=== PATIENT | female | born 1935 | race African-American/Black ===

== ENCOUNTER 2018-06-27 14:07 | Inpatient (IN) | payer MEDICARE, MEDICAID ==
[~2018-06-27] VITALS: Ht 170.2 cm; Wt 101.2 kg
[2018-06-27 14:21] VITALS: BP 135/69
--- NOTE | 2018-06-27 14:27 | Emergency Room Report ---
History of Present Illness General Chief Complaint: Abnormal Labs Source: Patient Present Illness HPI This patient has a history of diabetes, hypertension, coronary artery disease, COPD. She states that she was in a half-way facility until about one month ago. She states that while she is in a half-way facility she felt safe and taking care of. She states that about a month ago she moved into her home. She states that she has not had any help from her family. She states she is very afraid and feels unsafe as she is unable to care for herself. She presents by EMS today for hypoglycemia. She states she was going to take her insulin and her blood sugar was 30. EMS report on their arrival her blood sugar was 30. She was given glucagon en route. She states that for the past week she has had a cough and congestion and a flare of her "bronchitis." She has had sputum production. She denies fever or chills. She denies nausea or vomiting. She states she's had some burning and pressure in the middle of her chest. She states that since the bronchitis has flared she has been using her home oxygen. She states she doesn't always have to use the oxygen. She also states that she feels unsafe at home and would like to return to the half-way facility. Allergies: Coded Allergies: No Known Allergies (Unverified , 06/27/18) Patient History Past Medical History: see triage record, DM, HTN, MS, CAD, COPD, GERD, dementia Social History: Denies: smoking, alcohol use, drug use Now: No Reviewed Nursing Documentation: PMH: Agreed; PSxH: Agreed Nursing Documentation-PM Past Medical History: No History, Except For Hx Diabetes: Yes Review of Systems All Other Systems: negative except mentioned in HPI Physical Exam Vital Signs Date Time Temp Pulse Resp B/P (MAP) Pulse Ox O2 Delivery O2 Flow Rate FiO2 06/27/18 14:04 97.3 92 16 125/53 99 Room Air Sp02 EP Interpretation: reviewed, normal General Appearance: no apparent distress, alert, GCS 15, non-toxic Head: normocephalic, atraumatic Eyes: bilateral eye normal inspection, bilateral eye PERRL ENT: hearing grossly normal, normal pharynx, no angioedema, normal voice Neck: full range of motion, supple/symm/no masses Respiratory: chest non-tender, no respiratory distress, no retraction, no accessory muscle use, speaking full sentences, wheezing, expiration Cardiovascular #1: regular rate, rhythm, no edema Gastrointestinal: normal bowel sounds, non tender, soft, non-distended, no guarding, no rebound Rectal: deferred Musculoskeletal: back normal, normal range of motion, non-tender, swelling - BLE edema Neurologic: alert, oriented x3, responsive, motor strength/tone normal, sensory intact, speech normal Psychiatric: judgement/insight normal, memory normal, mood/affect normal, no suicidal/homicidal ideation Skin: normal color, no rash, warm/dry, well hydrated Medical Decision Making Diagnostic Impression: Primary Impression: Hypoglycemia Additional Impressions: CHF exacerbation COPD exacerbation ER Course This patient presents with hypoglycemia. At home the patient's blood sugar was 30. Here in the emergency department she dropped to 67 after glucagon. Possibly this patient over took her insulin. The patient is 83 years old and living alone in managing her medications. She states she feels unsafe at her home and had been in a half-way facility and felt much safer there because she had assistance with her medications and activities of daily living. Patient also has wheezing on exam and findings on chest x-ray that appear consistent with CHF exacerbation. She has a known history of COPD. She was treated concurrently for COPD, pneumonia and CHF. The patient continued to have significant shortness of breath and after being given albuterol and Atrovent nebulizer treatments continued to feel short of breath. Therefore, I felt I should treat the patient for CHF and did give the patient nitro paste to her chest wall and Lasix IV. The patient will be admitted for further evaluation and treatment. Likely this patient will need placement in a half-way facility as she is unable to care for herself safely. Laboratory Tests Test 06/27/18 14:30 06/27/18 15:18 White Blood Count 10.3 K/UL (4.8-10.8) Red Blood Count 3.86 M/UL (4.20-5.40) L Hemoglobin 10.7 G/DL (12.0-16.0) L Hematocrit 35.6 % (37.0-47.0) L Mean Corpuscular Volume 92 FL (80-99) Mean Corpuscular Hemoglobin 27.6 PG (27.0-31.0) Mean Corpuscular Hemoglobin Concent 30.0 G/DL (32.0-36.0) L Red Cell Distribution Width 13.9 % (11.6-14.8) Platelet Count 197 K/UL (150-450) Mean Platelet Volume 8.4 FL (6.5-10.1) Neutrophils (%) (Auto) 80.0 % (45.0-75.0) H Lymphocytes (%) (Auto) 10.9 % (20.0-45.0) L Monocytes (%) (Auto) 5.7 % (1.0-10.0) Eosinophils (%) (Auto) 1.7 % (0.0-3.0) Basophils (%) (Auto) 1.7 % (0.0-2.0) Sodium Level 143 MMOL/L (136-145) Potassium Level 4.3 MMOL/L (3.5-5.1) Chloride Level 102 MMOL/L (98-107) Carbon Dioxide Level 35 MMOL/L (21-32) H Anion Gap 6 mmol/L (5-15) Blood Urea Nitrogen 33 mg/dL (7-18) H Creatinine 1.0 MG/DL (0.55-1.30) Estimate Glomerular Filtration Rate mL/min (>60) Glucose Level 67 MG/DL (74-106) L Lactic Acid Level 1.90 mmol/L (0.4-2.0) Calcium Level 9.2 MG/DL (8.5-10.1) Phosphorus Level 4.1 MG/DL (2.5-4.9) Magnesium Level 2.1 MG/DL (1.8-2.4) Total Bilirubin 0.3 MG/DL (0.2-1.0) Aspartate Amino Transferase (AST) 34 U/L (15-37) Alanine Aminotransferase (ALT) 42 U/L (12-78) Alkaline Phosphatase 114 U/L (46-116) Total Creatine Kinase 388 U/L (26-308) H Creatine Kinase MB 3.0 NG/ML (0.0-3.6) Creatine Kinase MB Relative Index 0.7 Troponin I 0.024 ng/mL (0.000-0.056) Total Protein 6.9 G/DL (6.4-8.2) Albumin 3.6 G/DL (3.4-5.0) Globulin 3.3 g/dL Albumin/Globulin Ratio 1.1 (1.0-2.7) Acetone Level Negative (NEGATIVE) Urine Color Pale yellow Urine Appearance Clear Urine pH 6 (4.5-8.0) Urine Specific [place] 1.010 (1.005-1.035) Urine Protein Negative (NEGATIVE) Urine Glucose (UA) Negative (NEGATIVE) Urine Ketones Negative (NEGATIVE) Urine Blood Negative (NEGATIVE) Urine Nitrite Negative (NEGATIVE) Urine Bilirubin Negative (NEGATIVE) Urine Urobilinogen Normal MG/DL (0.0-1.0) Urine Leukocyte Esterase Negative (NEGATIVE) EKG Diagnostic Results Rate: normal Rhythm: NSR ST Segments: no acute changes Rhythm Strip Diag. Results EP Interpretation: yes Rate: 70's Rhythm: NSR, no PVC's, no ectopy Chest X-Ray Diagnostic Results Chest X-Ray Diagnostic Results : Chest X-Ray Ordered: Yes # of Views/Limited/Complete: 1 View Indication: Shortness of Breath EP Interpretation: Yes Interpretation: other - Diffuse patchy opacities Impression: Other - See above Electronically Signed by: Eladia Ascencio DO Last Vital Signs Date Time Temp Pulse Resp B/P (MAP) Pulse Ox O2 Delivery O2 Flow Rate FiO2 06/27/18 14:04 97.3 92 16 125/53 99 Room Air Disposition: ADMITTED INPATIENT Condition: Serious Eladia Ascencio DO Jun 27, 2018 14:27
[2018-06-27] MEDS ORDERED: Ipratropium 0.02% Inh Soln 2.5ml UD HHN ONE (14:30)
[2018-06-27] MEDS ORDERED: Albuterol ud Inhalation HHN ONE (14:30)
[2018-06-27] MEDS ORDERED: cefTRIAXone 1 GM in NS 55 ML IVPB ONE (14:30)
--- NOTE | 2018-06-27 14:45 | NUR ---
ED Nurse Note: Patient brought in by ambulance from [facility] due to altered. Family found patient altered, AxOx2. EMS found her altered with blood sugar ~ 22 critically low. Glucagon and D10 given en route to ER. Per EMS, patient lives alone, and she had take to the hospital multiples time due to hypoglycemia. Patient awake, alert, oriented x 3. c/o chest tightness and SOB and maintaining high-kincaid position. Pulse oximetry reading on room air was 92%. Provided oxygen 2L via N/C. Per patient, patient has bronchitis. Patient brought a bottle of Novolog and placed in sealed bag. Provided juice and sandwiches. Placed patient on cardiac exercise specialist. Bed in lowest position.
--- NOTE | 2018-06-27 14:51 | NUR ---
ED Nurse Note: Patient's son (HARESH) [phone].
[2018-06-27 14:53] LABS: BASOPHILS % (AUTO) 1.7 % (0.0-2.0); EOSINOPHILS % (AUTO) 1.7 % (0.0-3.0); HEMATOCRIT 35.6 % (37.0-47.0); HEMOGLOBIN 10.7 G/DL (12.0-16.0); LYMPHOCYTES % (AUTO) 10.9 % (20.0-45.0); MEAN CORPUSCULAR VOLUME 92 FL (80-99); MONOCYTES % (AUTO) 5.7 % (1.0-10.0); PLATELET COUNT 197 K/UL (150-450); RED BLOOD COUNT 3.86 M/UL (4.20-5.40); RED CELL DISTRIBUTION WIDTH 13.9 % (11.6-14.8); WHITE BLOOD COUNT 10.3 K/UL (4.8-10.8)
[2018-06-27 15:04] LABS: ANION GAP 6 mmol/L (5-15); BLOOD UREA NITROGEN 33 mg/dL (7-18); CALCIUM 9.2 MG/DL (8.5-10.1); CARBON DIOXIDE 35 MMOL/L (21-32); CHLORIDE 102 MMOL/L (98-107); POTASSIUM 4.3 MMOL/L (3.5-5.1); SODIUM 143 MMOL/L (136-145)
--- NOTE | 2018-06-27 15:08 | Diagnostic Imaging Report ---
Indication: Dyspnea Comparison: None A single view chest radiograph was obtained. Findings: There is enlargement of the cardiac silhouette with pulmonary vascular redistribution and prominence, hazy vessel margins and the suggestion of interstitial edema consistent with CHF. Bones are osteopenic. IMPRESSION: Congestive heart failure
--- NOTE | 2018-06-27 15:10 | NUR ---
ED Nurse Note: Dr. Scott notified of blood sugar 69mg/dl and ordered to administer D50 at this time. Patient is receiving breathing treatment.
[2018-06-27 15:17] LABS: ALANINE AMINOTRANSFERASE 42 U/L (12-78); ALBUMIN 3.6 G/DL (3.4-5.0); ALBUMIN/GLOBULIN RATIO 1.1 (1.0-2.7); ALKALINE PHOSPHATASE 114 U/L (46-116); ASPARTATE AMINO TRANSFERASE 34 U/L (15-37); BILIRUBIN,TOTAL 0.3 MG/DL (0.2-1.0); CREATINE KINASE 388 U/L (26-308); PHOSPHORUS 4.1 MG/DL (2.5-4.9)
[2018-06-27 15:44] LABS: APPEARANCE,URINE CLEAR; BILIRUBIN, URINE NEGATIVE (NEGATIVE); COLOR,URINE PALE YELLOW; GLUCOSE, URINE (UA) NEGATIVE (NEGATIVE); KETONES,URINE NEGATIVE (NEGATIVE); LEUKOCYTE ESTERASE ,URINE NEGATIVE (NEGATIVE); NITRITE,URINE NEGATIVE (NEGATIVE); PH,URINE 6 (4.5-8.0); PROTEIN,URINE NEGATIVE (NEGATIVE); UROBILINOGEN,URINE NORMAL MG/DL (0.0-1.0)
[2018-06-27 15:45] VITALS: BP 131/46
[2018-06-27] MEDS ORDERED: Nitroglycerin 2% oint pkt TOPIC ONE (16:00)
--- NOTE | 2018-06-27 16:00 | NUR ---
ED Nurse Note: ERMD notified of rectal temp 94.7F, patient's complaints of SOB, pulse oximetry reading > 94% and decreasd RR to 17. Provided warm blankets.
--- NOTE | 2018-06-27 17:05 | NUR ---
ED Nurse Note: Patient refused BiPAP. Patient does not want to wear mask. Dr. Ascencio was at bedside and explained the benefit and risk of using BiPAP, but patient still does not want to use mask at this time. Bedside commode at bedside.
--- NOTE | 2018-06-27 17:09 | NUR ---
ED Nurse Note: PT REFUSED BIPAP, THEREFORE UPGRADE WAS CHANGED TO TELE INSTEAD OF SDU. REGISTRATION AND NURSING TELEVISION REPAIRMAN AWARE.
--- NOTE | 2018-06-27 17:16 | NUR ---
RESPIRATORY NOTE: Patient refused Bipap. was notified and aware. Will continue to monitor
[2018-06-27 17:30] VITALS: BP 127/58
--- NOTE | 2018-06-27 18:00 | NUR ---
ED Nurse Note: Inserted schaeffer cather 16g as ordered. Patient tolerated the procedure without difficutly.
[2018-06-27 18:29] VITALS: BP 148/65
--- NOTE | 2018-06-27 18:35 | NUR ---
ED Nurse Note: Patient c/o headache. ERMD notified and received order to administer Tylenol at this time.
--- NOTE | 2018-06-27 18:37 | NUR ---
ED Nurse Note: RN attempted to given report to Tel, nurse not available at this time.
[2018-06-27] MEDS ORDERED: NOVOLOG100 UNIT/4 SQ (18:38)
--- NOTE | 2018-06-27 18:44 | NUR ---
ED Nurse Note: Dropped off patient's Novolog to pharmacy. Receipt # [id number] in chart.
[2018-06-27] MEDS ORDERED: Miralax 17gm pkt ORAL PRN (18:56)
--- NOTE | 2018-06-27 19:08 | NUR ---
ED Nurse Note: HAND-OFF: Report given to DARWIN Summers. Patient resting in bed.
[2018-06-27 20:07] VITALS: BP 148/65
--- NOTE | 2018-06-27 20:10 | NUR ---
ER Nurse Note: Report given to DARWIN Atkinson for continuity of care. Pt a&ox4, VSS, no signs of acute distress, shortness of breath, s/s of hypoglycemia. Left with all belongings.
--- NOTE | 2018-06-27 20:30 | NUR ---
NURSE NOTES: Report received from Layne DIRECTOR OF RETENTION. Patient is transferred via gurney without any incident from ER to Telemetry unit. Patient is alert, oriented, with periods of forgetfulness, able to make needs known. Respiratory even and unlabored. Patient is tolerating 2L NC at 95%. Vital signs are as follows: BP: 146/85, RR: 20, O2: 95%, afebrile. IV site is asymptomatic, patent, and intact. Sutton catheter is in place and draining via gravity. Belongings list checked and signed. Skin assessment done and verified with Angelo RN, skin is intact. Bed is in lowest position with side rails up x2. Will continue to monitor.
[2018-06-27] MEDS: Heparin 5000 units/ml inj SUBQ SCH (21:06)
[2018-06-28] VITALS: BP 121/52
[2018-06-28] MEDS: Albuterol/Ipratropium 3ml neb HHN PRN (03:35)
[2018-06-28 04:00] VITALS: BP 107/47
--- NOTE | 2018-06-28 06:36 | NUR ---
NURSE NOTES: Notified troponin level of 0.084. Troponin AM is still pending.
[2018-06-28 06:41] LABS: EOSINOPHILS % (AUTO) 3.5 % (0.0-3.0); HEMATOCRIT 31.1 % (37.0-47.0); HEMOGLOBIN 9.3 G/DL (12.0-16.0); LYMPHOCYTES % (AUTO) 18.7 % (20.0-45.0); MEAN CORPUSCULAR VOLUME 92 FL (80-99); MONOCYTES % (AUTO) 8.3 % (1.0-10.0); NEUTROPHILS % (AUTO) 67.5 % (45.0-75.0); PLATELET COUNT 196 K/UL (150-450); RED CELL DISTRIBUTION WIDTH 14.1 % (11.6-14.8)
[2018-06-28 06:52] LABS: ALBUMIN 2.9 G/DL (3.4-5.0); ANION GAP 3 mmol/L (5-15); BLOOD UREA NITROGEN 34 mg/dL (7-18); CALCIUM 8.9 MG/DL (8.5-10.1); CARBON DIOXIDE 37 MMOL/L (21-32); CHLORIDE 101 MMOL/L (98-107); CREATININE 1.1 MG/DL (0.55-1.30); PHOSPHORUS 4.3 MG/DL (2.5-4.9); POTASSIUM 4.8 MMOL/L (3.5-5.1); SODIUM 141 MMOL/L (136-145)
--- NOTE | 2018-06-28 06:57 | NUR ---
NURSE NOTES: Notified Dr Alfaro regarding troponin of 0.101, awaiting call back.
--- NOTE | 2018-06-28 07:24 | NUR ---
HAND-OFF: Report given to Suman RN. Report troponin to primary MD, orders received and will carry out. Patient is in stable condition.
--- NOTE | 2018-06-28 07:25 | NUR ---
NURSE NOTES: Received bedside report from China GRANADOS. Pt. awake, having breakfast, a/o x 3. No sign of distress. On O2 at 2LPM via NC. Denies pain at present. IV at left AC #20g. in placed SL. Bed in low position, locked. Call light within reach. Will cont. to monitor.
--- NOTE | 2018-06-28 07:58 | NUR ---
CASE MANAGEMENT:REVIEW 83 YR OLD FEMALE BIBA FROM HOME CC: BLOOD SUGAR-32. SOB SI: HYPOGLYCEMIA. CHF. COPD 97.3 92 16 125/53 99% ON RA H/H-10.7/35.6 GLUCOSE-67 TCK+388 IS: GLUCAGON IM X1 1L NS BOLUS DUONEB HHN IV ROCEPHIN NITRO BID IV LASIX IV D50 CXR BLOOD CX : TO TELEMETRY UNIT
[2018-06-28 08:00] VITALS: BP 120/53
--- NOTE | 2018-06-28 08:35 | NUR ---
RADIOLOGY DEPT., CHEST X-RAY DONE.-P.DYE
[2018-06-28] MEDS: Heparin 5000 units/ml inj SUBQ SCH ×2 (09:11→20:18)
[2018-06-28 12:00] VITALS: BP 123/51
--- NOTE | 2018-06-28 12:13 | Diagnostic Imaging Report ---
Indication: Dyspnea Comparison: 06/19/2018 A single view chest radiograph was obtained. Findings: Pulmonary vascularity may be slightly improved since the last examination. The current exam shows prominent vascularity and heart size. IMPRESSION: Suspected mild CHF. There may be some improvement since the previous day.
--- NOTE | 2018-06-28 14:05 | Consultation ---
History of Present Illness General Date patient seen: Jun 28, 2018 Chief Complaint: Abnormal Labs Present Illness HPI 83 year old female with history of diabetes, hypertension, coronary artery disease, COPD for evaluation of hypoglycemia. She states she was going to take her insulin and her blood sugar was 30. EMS report on their arrival her blood sugar was 30. She was given glucagon en route. She states that for the past week she has had a cough and congestion and a flare of her "bronchitis." She has had sputum production. She denies fever or chills. She's had some burning and pressure in the middle of her chest. she was diagnosed to have acute exacerbation of CHF and COPD and admitted to telemetry. Allergies: Coded Allergies: No Known Allergies (Unverified , 06/27/18) Medication History Scheduled Insulin Aspart (Novolog), 100 UNIT SQ AC+HS, (Reported) Patient History Healthcare decision maker N Resuscitation status Full Code Advanced Directive on File Past Medical/Surgical History Past Medical/Surgical History: (1) Diabetes mellitus Review of Systems All Other Systems: negative except mentioned in HPI Physical Exam General Appearance: WD/WN, no apparent distress Lines, tubes and drains: peripheral HEENT: normocephalic, atraumatic Neck: non-tender, normal alignment Respiratory/Chest: chest wall non-tender, lungs clear Breasts: no masses Cardiovascular/Chest: normal peripheral pulses Abdomen: normal bowel sounds, non tender Extremities: normal range of motion, non-tender Skin Exam: normal pigmentation Last 24 Hour Vital Signs Date Time Temp Pulse Resp B/P (MAP) Pulse Ox O2 Delivery O2 Flow Rate FiO2 06/28/18 12:00 98.0 70 18 123/51 (75) 100 06/28/18 09:00 Nasal Cannula 2.0 Nasal Cannula 2.0 06/28/18 08:00 98.3 74 18 120/53 (75) 99 06/28/18 07:43 Nasal Cannula 2.0 28 06/28/18 07:43 96 Nasal Cannula 2.0 28 06/28/18 07:41 70 06/28/18 04:00 99.7 71 20 107/47 (67) 95 06/28/18 03:46 71 06/28/18 03:45 68 18 98 Nasal Cannula 2.0 28 06/28/18 03:35 75 18 98 Nasal Cannula 2.0 28 06/28/18 00:21 Nasal Cannula 2.0 Room Air 2.0 06/28/18 00:00 98.3 72 20 121/52 (75) 100 06/27/18 23:58 69 06/27/18 22:59 Nasal Cannula 2.0 06/27/18 22:59 98 Nasal Cannula 2.0 06/27/18 20:07 97.0 72 16 148/65 98 Nasal Cannula 2.0 06/27/18 20:07 97.0 72 16 148/65 98 Nasal Cannula 2.0 06/27/18 19:24 97.0 06/27/18 18:29 97.0 72 16 148/65 98 Nasal Cannula 2.0 06/27/18 17:30 73 17 127/58 99 Nasal Cannula 2.0 06/27/18 16:11 123/60 06/27/18 15:45 94.7 75 18 131/46 99 Nasal Cannula 2.0 06/27/18 15:09 73 19 93 Nasal Cannula 2.0 06/27/18 14:47 73 22 93 Nasal Cannula 2.0 06/27/18 14:45 73 22 Nasal Cannula 2.0 06/27/18 14:36 80 16 Nasal Cannula 2.0 06/27/18 14:21 80 16 135/69 98 Nasal Cannula 2.0 06/27/18 14:04 97.3 92 16 125/53 99 Room Air Intake and Output 06/27/18 06/28/18 18:59 06:59 Intake Total 220 ml Output Total 500 ml 300 ml Balance -280 ml -300 ml Intake Oral 120 ml IV Total 100 ml Output Urine Total 500 ml 300 ml Laboratory Tests Test 06/27/18 14:30 06/27/18 15:18 06/27/18 21:20 06/28/18 05:20 White Blood Count 10.3 K/UL (4.8-10.8) 6.0 K/UL (4.8-10.8) Red Blood Count 3.86 M/UL (4.20-5.40) L 3.40 M/UL (4.20-5.40) L Hemoglobin 10.7 G/DL (12.0-16.0) L 9.3 G/DL (12.0-16.0) L Hematocrit 35.6 % (37.0-47.0) L 31.1 % (37.0-47.0) L Mean Corpuscular Volume 92 FL (80-99) 92 FL (80-99) Mean Corpuscular Hemoglobin 27.6 PG (27.0-31.0) 27.2 PG (27.0-31.0) Mean Corpuscular Hemoglobin Concent 30.0 G/DL (32.0-36.0) L 29.7 G/DL (32.0-36.0) L Red Cell Distribution Width 13.9 % (11.6-14.8) 14.1 % (11.6-14.8) Platelet Count 197 K/UL (150-450) 196 K/UL (150-450) Mean Platelet Volume 8.4 FL (6.5-10.1) 8.2 FL (6.5-10.1) Neutrophils (%) (Auto) 80.0 % (45.0-75.0) H 67.5 % (45.0-75.0) Lymphocytes (%) (Auto) 10.9 % (20.0-45.0) L 18.7 % (20.0-45.0) L Monocytes (%) (Auto) 5.7 % (1.0-10.0) 8.3 % (1.0-10.0) Eosinophils (%) (Auto) 1.7 % (0.0-3.0) 3.5 % (0.0-3.0) H Basophils (%) (Auto) 1.7 % (0.0-2.0) 2.0 % (0.0-2.0) Sodium Level 143 MMOL/L (136-145) 141 MMOL/L (136-145) Potassium Level 4.3 MMOL/L (3.5-5.1) 4.8 MMOL/L (3.5-5.1) Chloride Level 102 MMOL/L (98-107) 101 MMOL/L (98-107) Carbon Dioxide Level 35 MMOL/L (21-32) H 37 MMOL/L (21-32) H Anion Gap 6 mmol/L (5-15) 3 mmol/L (5-15) L Blood Urea Nitrogen 33 mg/dL (7-18) H 34 mg/dL (7-18) H Creatinine 1.0 MG/DL (0.55-1.30) 1.1 MG/DL (0.55-1.30) Estimat Glomerular Filtration Rate mL/min (>60) mL/min (>60) Glucose Level 67 MG/DL (74-106) L 88 MG/DL (74-106) Lactic Acid Level 1.90 mmol/L (0.4-2.0) Calcium Level 9.2 MG/DL (8.5-10.1) 8.9 MG/DL (8.5-10.1) Phosphorus Level 4.1 MG/DL (2.5-4.9) 4.3 MG/DL (2.5-4.9) Magnesium Level 2.1 MG/DL (1.8-2.4) Total Bilirubin 0.3 MG/DL (0.2-1.0) Aspartate Amino Transf (AST/SGOT) 34 U/L (15-37) Alanine Aminotransferase (ALT/SGPT) 42 U/L (12-78) Alkaline Phosphatase 114 U/L (46-116) Total Creatine Kinase 388 U/L (26-308) H Creatine Kinase MB 3.0 NG/ML (0.0-3.6) Creatine Kinase MB Relative Index 0.7 Troponin I 0.024 ng/mL (0.000-0.056) 0.084 ng/mL (0.000-0.056) 0.101 ng/mL (0.000-0.056) Total Protein 6.9 G/DL (6.4-8.2) Albumin 3.6 G/DL (3.4-5.0) 2.9 G/DL (3.4-5.0) L Globulin 3.3 g/dL Albumin/Globulin Ratio 1.1 (1.0-2.7) Acetone Level Negative (NEGATIVE) Urine Color Pale yellow Urine Appearance Clear Urine pH 6 (4.5-8.0) Urine Specific [place] 1.010 (1.005-1.035) Urine Protein Negative (NEGATIVE) Urine Glucose (UA) Negative (NEGATIVE) Urine Ketones Negative (NEGATIVE) Urine Blood Negative (NEGATIVE) Urine Nitrite Negative (NEGATIVE) Urine Bilirubin Negative (NEGATIVE) Urine Urobilinogen Normal MG/DL (0.0-1.0) Urine Leukocyte Esterase Negative (NEGATIVE) Microbiology Date/Time Source Procedure Growth Status 06/27/18 14:30 Blood Blood Culture - Preliminary Resulted Height (Feet): 5 Height (Inches): 7.00 Weight (Pounds): 260 Medications Current Medications Medications (Trade) Dose Ordered Sig/Deidre Route PRN Reason Start Time Stop Time Status Last Admin Dose Admin Acetaminophen (Tylenol) 650 mg Q4H PRN ORAL Fever 06/27/18 18:56 07/27/18 18:55 06/28/18 09:49 Albuterol/ Ipratropium (Albuterol/ Ipratropium) 3 ml Q4H PRN HHN Shortness of Breath 06/27/18 18:57 07/02/18 18:56 06/28/18 03:35 Dextrose (Dextrose 50%) 25 ml Q30M PRN IV Hypoglycemia 06/27/18 18:56 07/27/18 18:55 Dextrose (Dextrose 50%) 50 ml Q30M PRN IV Hypoglycemia 06/27/18 18:56 07/27/18 18:55 Furosemide (Lasix) 40 mg EVERY 8 HOURS IV 06/27/18 22:00 07/27/18 21:59 06/28/18 06:06 Heparin Sodium (Porcine) (Heparin 5000 units/ml) 5,000 units EVERY 12 HOURS SUBQ 06/27/18 21:00 07/27/18 20:59 06/28/18 09:11 Ondansetron HCl (Zofran) 4 mg Q6H PRN IVP Nausea & Vomiting 06/27/18 18:56 07/27/18 18:55 Polyethylene Glycol (Miralax) 17 gm DAILYPRN PRN ORAL Constipation 06/27/18 18:56 07/27/18 18:55 Temazepam (Restoril) 15 mg HSPRN PRN ORAL Insomnia 06/27/18 21:00 07/04/18 20:59 Assessment/Plan Problem List: (1) Acute respiratory failure ICD Codes: J96.00 - Acute respiratory failure, unspecified whether with hypoxia or hypercapnia SNOMED: 67687958 (2) Pulmonary edema ICD Codes: J81.1 - Chronic pulmonary edema SNOMED: 17837248 (3) COPD (chronic obstructive pulmonary disease) ICD Codes: J44.9 - Chronic obstructive pulmonary disease, unspecified SNOMED: 64466570 (4) Unable to ambulate ICD Codes: R26.2 - Difficulty in walking, not elsewhere classified SNOMED: 616547714 (5) HTN (hypertension) ICD Codes: I10 - Essential (primary) hypertension SNOMED: 88453832 (6) Morbid obesity ICD Codes: E66.01 - Morbid (severe) obesity due to excess calories SNOMED: 464498137 Assessment/Plan respiratory treatment continue diuretics antitussives check echo watch intake and output doppler of lower extremity. sliding scale Tawanna Watkins MD Jun 28, 2018 14:05
[2018-06-28] MEDS ORDERED: Promethazine/Codeine 5ml UD ORAL PRN (14:15)
--- NOTE | 2018-06-28 15:03 | Cardiac Electrophysiology PN ---
Subjective Subjective [id number] Objective Last 24 Hour Vital Signs Date Time Temp Pulse Resp B/P (MAP) Pulse Ox O2 Delivery O2 Flow Rate FiO2 06/28/18 12:00 98.0 70 18 123/51 (75) 100 06/28/18 09:00 Nasal Cannula 2.0 Nasal Cannula 2.0 06/28/18 08:00 98.3 74 18 120/53 (75) 99 06/28/18 07:43 Nasal Cannula 2.0 28 06/28/18 07:43 96 Nasal Cannula 2.0 28 06/28/18 07:41 70 06/28/18 04:00 99.7 71 20 107/47 (67) 95 06/28/18 03:46 71 06/28/18 03:45 68 18 98 Nasal Cannula 2.0 28 06/28/18 03:35 75 18 98 Nasal Cannula 2.0 28 06/28/18 00:21 Nasal Cannula 2.0 Room Air 2.0 06/28/18 00:00 98.3 72 20 121/52 (75) 100 06/27/18 23:58 69 06/27/18 22:59 Nasal Cannula 2.0 28 06/27/18 22:59 98 Nasal Cannula 2.0 28 06/27/18 20:07 97.0 72 16 148/65 98 Nasal Cannula 2.0 06/27/18 20:07 97.0 72 16 148/65 98 Nasal Cannula 2.0 28 06/27/18 19:24 97.0 06/27/18 18:29 97.0 72 16 148/65 98 Nasal Cannula 2.0 06/27/18 17:30 73 17 127/58 99 Nasal Cannula 2.0 06/27/18 16:11 123/60 06/27/18 15:45 94.7 75 18 131/46 99 Nasal Cannula 2.0 06/27/18 15:09 73 19 93 Nasal Cannula 2.0 28 Intake and Output 06/27/18 06/28/18 18:59 06:59 Intake Total 220 ml Output Total 500 ml 300 ml Balance -280 ml -300 ml Intake Oral 120 ml IV Total 100 ml Output Urine Total 500 ml 300 ml Laboratory Tests Test 06/27/18 15:18 06/27/18 21:20 06/28/18 05:20 Urine Color Pale yellow Urine Appearance Clear Urine pH 6 (4.5-8.0) Urine Specific [place] 1.010 (1.005-1.035) Urine Protein Negative (NEGATIVE) Urine Glucose (UA) Negative (NEGATIVE) Urine Ketones Negative (NEGATIVE) Urine Blood Negative (NEGATIVE) Urine Nitrite Negative (NEGATIVE) Urine Bilirubin Negative (NEGATIVE) Urine Urobilinogen Normal MG/DL (0.0-1.0) Urine Leukocyte Esterase Negative (NEGATIVE) Troponin I 0.084 ng/mL (0.000-0.056) 0.101 ng/mL (0.000-0.056) White Blood Count 6.0 K/UL (4.8-10.8) Red Blood Count 3.40 M/UL (4.20-5.40) L Hemoglobin 9.3 G/DL (12.0-16.0) L Hematocrit 31.1 % (37.0-47.0) L Mean Corpuscular Volume 92 FL (80-99) Mean Corpuscular Hemoglobin 27.2 PG (27.0-31.0) Mean Corpuscular Hemoglobin Concent 29.7 G/DL (32.0-36.0) L Red Cell Distribution Width 14.1 % (11.6-14.8) Platelet Count 196 K/UL (150-450) Mean Platelet Volume 8.2 FL (6.5-10.1) Neutrophils (%) (Auto) 67.5 % (45.0-75.0) Lymphocytes (%) (Auto) 18.7 % (20.0-45.0) L Monocytes (%) (Auto) 8.3 % (1.0-10.0) Eosinophils (%) (Auto) 3.5 % (0.0-3.0) H Basophils (%) (Auto) 2.0 % (0.0-2.0) Sodium Level 141 MMOL/L (136-145) Potassium Level 4.8 MMOL/L (3.5-5.1) Chloride Level 101 MMOL/L (98-107) Carbon Dioxide Level 37 MMOL/L (21-32) H Anion Gap 3 mmol/L (5-15) L Blood Urea Nitrogen 34 mg/dL (7-18) H Creatinine 1.1 MG/DL (0.55-1.30) Estimat Glomerular Filtration Rate mL/min (>60) Glucose Level 88 MG/DL (74-106) Calcium Level 8.9 MG/DL (8.5-10.1) Phosphorus Level 4.3 MG/DL (2.5-4.9) Albumin 2.9 G/DL (3.4-5.0) L Microbiology Date/Time Source Procedure Growth Status 06/27/18 14:30 Blood Blood Culture - Preliminary Resulted Alvin Kiran MD Jun 28, 2018 15:03
[2018-06-28 16:00] VITALS: BP 118/46
--- NOTE | 2018-06-28 17:49 | History & Physical ---
History and Physical History & Physicial Dictated for Int Med-Dr Alfaro no. [id number]. Aldair Card MD Jun 28, 2018 17:49
[2018-06-28] MEDS: NovoLOG Insulin Flexpen SUBQ SCH ×2 (18:08→20:18)
[2018-06-28] MEDS: Sucralfate 1gm tab ORAL SCH ×2 (18:11→20:16)
--- NOTE | 2018-06-28 19:30 | NUR ---
NURSE NOTES: Received patient from DARWIN Hirsch. Patient is stable. Vital signs are within normal range. Will continue plan of care.
--- NOTE | 2018-06-28 19:33 | NUR ---
HAND-OFF: Report given to Jovanna GRANADOS. Pt. remain stable.
[2018-06-28 20:00] VITALS: BP 109/50
[2018-06-28] MEDS: Metoprolol 25mg tab ORAL SCH (20:04)
[2018-06-28] MEDS: Atorvastatin 20mg tab ORAL SCH (20:16)
[2018-06-28] MEDS: Pantoprazole Inj IVP SCH (20:16)
[2018-06-28] MEDS: HYDROcodone/Acetamin 5/325 tab ORAL PRN (20:17)
--- NOTE | 2018-06-28 20:45 | Consultation ---
DATE OF CONSULTATION: 06/28/2018 CARDIOLOGY CONSULTATION CONSULTING PHYSICIAN: Alvin Kiran M.D. REFERRING PHYSICIAN: Nahun Alfaro M.D. REASON FOR CONSULTATION: Management of hypertension and congestive heart failure. HISTORY OF PRESENT ILLNESS: The patient is an 83-year-old lady with history of hypertension, diabetes, COPD, and morbid obesity. to take her insulin and noted to have blood sugar was only 30. Per paramedics on arrival, her blood sugar was 30 and received glucagon en route. The patient has been having cough and congestion in the last week. The patient denies any prior myocardial infarction or coronary artery disease or any stent placement. The patient also had some pressure in her chest and she states that she was diagnosed with congestive heart failure. The patient was admitted and a Cardiology consultation was obtained for further evaluation and management. REVIEW OF SYSTEMS: Review of systems was negative other than what was mentioned in the history of present illness. PAST MEDICAL HISTORY: 1. Hypertension. 2. Diabetes. 3. Morbid obesity. 4. Chronic obstructive pulmonary disease. MEDICATIONS: Per reconciliation. FAMILY HISTORY: Noncontributory. SOCIAL HISTORY: She lives at home. Does not smoke or drink alcohol. PHYSICAL EXAMINATION: VITAL SIGNS: Blood pressure is 121/50, pulse 70, respirations 18, and temperature 98. HEAD AND NECK: Showed no JVD. LUNGS: Clear. CARDIOVASCULAR: Shows regular S1 and S2 with no gallop or murmur. ABDOMEN: Soft. EXTREMITIES: A 1+ pitting edema. LABORATORY AND DIAGNOSTIC DATA: Her EKG showed sinus rhythm with nonspecific T-wave abnormalities. Her echocardiogram showed ejection fraction of 55% to 60% with left ventricular hypertrophy. No evidence of pericardial effusion. Her labs show white count of 6, hemoglobin 9.2, hematocrit 31, and platelet count is 196,000. Sodium 141, potassium 4.8, BUN of 34, and creatinine 1.1. Troponin is 0.02 and 0.08 and 0.1. ASSESSMENT AND PLAN: 1. Troponin elevation. The levels have gone up from 0.02 to 0.08 and 0.1. The EKG, however, do not show any acute ischemic changes. She is mildly azotemic. 2. Troponin leak. We will repeat cardiac enzymes in the morning. Again, EKG is nonischemic and an echocardiogram showed EF of 55 to 60 percent. The patient is on aspirin and low-dose beta-olivia and statin. After stabilization, the patient likely would need a stress test or cardiac catheterization. 3. Congestive heart failure with diastolic dysfunction. The patient is on Lasix 40 mg IV every 8 hours. 4. Obesity. 5. Chronic obstructive pulmonary disease. Under management of Dr. Watkins. Thank you very much for allowing me to participate in the care of this patient. Please do not hesitate to contact me for any questions regarding my evaluation. Alvin Kiran M.D. DR: GLYNN JOB#: [id number] CC:
--- NOTE | 2018-06-28 23:33 | NUR ---
NURSE NOTES: Patient refuses nasal suction for sputum collection at the moment. Will try again later.
[2018-06-29] VITALS: BP 104/47
--- NOTE | 2018-06-29 | History and Physical Report ---
DATE OF ADMISSION: 06/27/2018 CHIEF COMPLAINT: The patient is an 83-year-old female, presents with chief complaint of hypoglycemic episode. HISTORY OF PRESENT ILLNESS: The patient lives alone. The patient was previously in an assisted living or a [place] facility. The patient states her family lives far away. The patient states she began to experience blurred vision and nausea couple of days ago. The patient states she called EMS several times. Yesterday, the patient called 911 and was found to have fingerstick blood sugar of 30. The patient was given glucagon in the field. The patient was transported to [facility]. The patient is admitted with hypoglycemia. REVIEW OF SYSTEMS: CONSTITUTIONAL: The patient denies weight loss or weight gain. The patient denies fevers or chills. HEENT: The patient denies ear or throat pain. The patient denies headache. CARDIOVASCULAR: The patient denies palpitations or chest pain. CHEST: The patient denies wheezes or shortness of breath. ABDOMINAL: The patient denies nausea, vomiting, diarrhea, or constipation. GENITOURINARY: The patient denies dysuria or increased frequency or urination. NEUROMUSCULAR: The patient denies seizures or generalized weakness. PAST MEDICAL HISTORY: Significant for: 1. Diabetes mellitus type 2. 2. Hypertension. 3. Coronary artery disease, status post myocardial infarction. 4. Chronic obstructive pulmonary disease. 5. Gastroesophageal reflux disease. 6. Alzheimer's dementia. PAST SURGICAL HISTORY: Significant for cholecystectomy. MEDICATIONS: Current medications, the patient does not remember most of her medications, however she is on insulin. ALLERGIES: No known drug allergies. SOCIAL HISTORY: The patient is a and lives alone. The patient denies tobacco use, having quit about 25 years ago. The patient denies alcohol use. PHYSICAL EXAMINATION: VITAL SIGNS: Temperature 98.3, respirations 18, pulse 74, blood pressure 120/53. GENERAL: The patient is a well-developed and well-nourished female, in no apparent distress. HEENT: Eyes, pupils equal and responsive to light and accommodation. Extraocular movements are intact. NECK: Supple without lymphadenopathy. CHEST: Lungs are clear to auscultation bilaterally without wheezes or rales. CARDIOVASCULAR: Regular rate. S1-S2 are normal without murmurs, rubs, or gallops. ABDOMEN: Soft, nontender, and nondistended. Positive bowel sounds. No evidence of hepatosplenomegaly. Currently, no rebound or guarding noted. EXTREMITIES: Negative for clubbing, cyanosis, or edema. RECTAL/GENITAL: Refused. NEUROLOGIC: Cranial nerves II through XII are grossly intact without focal deficits. Motor strength is 5/5 bilaterally. Deep tendon reflexes are 2+ plantar. LABORATORY STUDIES: WBC 10.3, hemoglobin 10.7, hematocrit 35.6, platelets 197,000. Sodium 143, potassium 4.3, chloride 102, CO2 35, BUN 33, creatinine 1.0, and glucose 67. Urinalysis was within normal limits. ASSESSMENT: This is an 83-year-old female with: 1. Hypoglycemia of diabetes. 2. Diabetes type 2. 3. Hypertension. 4. Coronary artery disease. 5. Chronic obstructive pulmonary disease. 6. Gastroesophageal reflux disease. 7. Alzheimer's dementia. TREATMENT: 1. Hypoglycemia/diabetes type 2. An Endocrinology consultation has been obtained with Dr. Win. The patient has been started empirically on NovoLog sliding scale. We will follow recommendation of Endocrinology. 2. Hypertension. The patient does not know the name of antihypertensive medication. Family will be contacted to bring in a list of the patient's medications. 3. Coronary artery disease. 4. Chronic obstructive pulmonary disease. 5. Gastroesophageal reflux disease. 6. Dementia. Aldair Card M.D. DR: NEO JOB#: [id number] CC:
[2018-06-29 04:00] VITALS: BP 126/49
[2018-06-29] MEDS: NovoLOG Insulin Flexpen SUBQ SCH ×4 (06:20→21:05)
[2018-06-29 07:10] LABS: BASOPHILS % (AUTO) 2.9 % (0.0-2.0); HEMATOCRIT 32.8 % (37.0-47.0); HEMOGLOBIN 9.7 G/DL (12.0-16.0); MEAN CORPUSCULAR VOLUME 92 FL (80-99); MONOCYTES % (AUTO) 11.2 % (1.0-10.0); PLATELET COUNT 193 K/UL (150-450); RED BLOOD COUNT 3.55 M/UL (4.20-5.40); RED CELL DISTRIBUTION WIDTH 14.1 % (11.6-14.8)
--- NOTE | 2018-06-29 07:14 | NUR ---
HAND-OFF: Report given to DARWIN ANDREWS.
[2018-06-29 07:30] LABS: ALANINE AMINOTRANSFERASE 33 U/L (12-78); ALBUMIN/GLOBULIN RATIO 0.8 (1.0-2.7); ALKALINE PHOSPHATASE 97 U/L (46-116); ANION GAP 3 mmol/L (5-15); ASPARTATE AMINO TRANSFERASE 25 U/L (15-37); BILIRUBIN,TOTAL 0.3 MG/DL (0.2-1.0); BLOOD UREA NITROGEN 35 mg/dL (7-18); CARBON DIOXIDE 39 MMOL/L (21-32); CHLORIDE 99 MMOL/L (98-107); CREATININE 1.2 MG/DL (0.55-1.30); POTASSIUM 4.3 MMOL/L (3.5-5.1); SODIUM 142 MMOL/L (136-145)
[2018-06-29 08:00] VITALS: BP 124/70
[2018-06-29] MEDS: Metoprolol 25mg tab ORAL SCH ×2 (08:04→21:07)
[2018-06-29] MEDS: Sucralfate 1gm tab ORAL SCH ×4 (08:05→21:06)
[2018-06-29] MEDS: Heparin 5000 units/ml inj SUBQ SCH ×2 (08:05→21:06)
[2018-06-29] MEDS: Pantoprazole Inj IVP SCH ×2 (08:05→21:06)
[2018-06-29] MEDS: Aspirin Baby 81mg ORAL SCH (08:24)
--- NOTE | 2018-06-29 08:28 | NUR ---
NURSE NOTES: pt awake alert, no distress. no sob. no c/o pain. bed in lowest position, locked. call light within reach. will monitor.
[2018-06-29] MEDS: HYDROcodone/Acetamin 5/325 tab ORAL PRN (09:20)
--- NOTE | 2018-06-29 09:54 | NUR ---
NURSE NOTES: relayed to Dr Watkins re blood cx results, need ID consult, awaiting response.
--- NOTE | 2018-06-29 10:10 | Diagnostic Imaging Report ---
INDICATION: Dyspnea COMPARISON: Chest x-ray dated 06/28/18 FINDINGS: Single frontal view demonstrates enlarged heart size. Increased pulmonary markings can be suggestive of congestion/early edema. No pleural effusions. The visualized osseous structures are within normal limits. IMPRESSION: Stable enlarged heart size. Increased pulmonary markings can be suggestive of congestion/early edema.
[2018-06-29] MEDS ORDERED: Vancomycin 1.5gm/D5W 275ml IVPB ONE ×2 (11:30)
[2018-06-29 12:00] VITALS: BP 129/70
--- NOTE | 2018-06-29 12:46 | Pulmonology Progress Note ---
Assessment/Plan Problems: (1) Acute respiratory failure (2) Bacteremia (3) Pulmonary edema (4) COPD (chronic obstructive pulmonary disease) (5) Unable to ambulate (6) HTN (hypertension) (7) Morbid obesity (8) Diabetes mellitus Assessment/Plan 4450 cc negative fluid balance Echo noted, diastolic dysfunction decrease lasix dose, watch bun/creatinine titrate cardiac meds pt/ot on Aspirin and beta blockers BC positive, for GP morenita, most likely contaminant, ID consult called keep in teli because of positive troponin and potential stress test Subjective ROS Limited/Unobtainable: No Interval Events: doing better, Allergies: Coded Allergies: No Known Allergies (Unverified , 06/27/18) Objective Last 24 Hour Vital Signs Date Time Temp Pulse Resp B/P (MAP) Pulse Ox O2 Delivery O2 Flow Rate FiO2 06/29/18 09:50 98.7 06/29/18 09:00 Nasal Cannula 2.0 Nasal Cannula 2.0 06/29/18 08:04 68 124/70 06/29/18 08:00 98.7 68 18 124/70 (88) 95 06/29/18 07:55 68 06/29/18 07:46 94 Nasal Cannula 2.0 28 06/29/18 07:46 Nasal Cannula 2.0 28 06/29/18 04:00 98.7 68 18 126/49 (74) 95 06/29/18 03:49 66 06/29/18 00:00 97.3 55 18 104/47 (66) 94 06/28/18 23:57 71 06/28/18 21:00 Nasal Cannula 2.0 Nasal Cannula 2.0 06/28/18 20:04 68 109/50 06/28/18 20:00 98.1 68 20 109/50 (69) 94 06/28/18 19:56 71 06/28/18 19:39 96 Nasal Cannula 2.0 28 06/28/18 19:39 Nasal Cannula 2.0 28 06/28/18 16:00 97.2 68 18 118/46 (70) 94 06/28/18 15:56 68 06/28/18 15:27 68 18 98 Room Air 21 06/28/18 15:24 66 17 98 Room Air 21 Intake and Output 06/28/18 06/29/18 19:00 07:00 Intake Total 730 ml 500 ml Output Total 2850 ml 2250 ml Balance -2120 ml -1750 ml Intake Oral 730 ml 500 ml Output Urine Total 2850 ml 2250 ml Objective General Appearance: WD/WN, no apparent distress Lines, tubes and drains: peripheral HEENT: normocephalic, atraumatic Neck: non-tender, normal alignment Respiratory/Chest: chest wall non-tender, lungs clear Breasts: no masses Cardiovascular/Chest: normal peripheral pulses Abdomen: normal bowel sounds, non tender Extremities: normal range of motion, + edema Skin Exam: normal pigmentation Microbiology Date/Time Source Procedure Growth Status 06/27/18 14:37 Blood Blood Culture - Preliminary NO GROWTH AFTER 24 HOURS Resulted 06/27/18 14:30 Blood Blood Culture - Preliminary Bacillus Sp Not B. Anthracis Resulted 06/27/18 19:15 Nasal Nares MRSA Culture - Final NO METHICILLIN RESISTANT STAPH AUREUS... Complete 06/27/18 19:00 Rectum VRE Culture - Final NO VANCOMYCIN RESISTANT ENTEROCOCCUS ... Complete 06/27/18 19:00 Rectum - Final NO CARBAPENEM-RESISTANT ENTEROBACTERI... Complete Laboratory Tests 06/29/18 05:20: White Blood Count 5.0, Red Blood Count 3.55L, Hemoglobin 9.7L, Hematocrit 32.8L , Mean Corpuscular Volume 92, Mean Corpuscular Hemoglobin 27.3, Mean Corpuscular Hemoglobin Concent 29.6L, Red Cell Distribution Width 14.1, Platelet Count 193, Mean Platelet Volume 8.4, Neutrophils (%) (Auto) 48.0, Lymphocytes (%) (Auto) 31.0, Monocytes (%) (Auto) 11.2H, Eosinophils (%) (Auto) 7.0H, Basophils (%) (Auto) 2.9H, Sodium Level 142, Potassium Level 4.3, Chloride Level 99, Carbon Dioxide Level 39H, Anion Gap 3L, Blood Urea Nitrogen 35H, Creatinine 1.2, Estimat Glomerular Filtration Rate , Glucose Level 128H, Calcium Level 9.0, Total Bilirubin 0.3, Aspartate Amino Transf (AST/SGOT) 25, Alanine Aminotransferase (ALT/SGPT) 33, Alkaline Phosphatase 97, Troponin I 0.045, Pro-B-Type Natriuretic Peptide 452H, Total Protein 6.6, Albumin 3.0L, Globulin 3.6, Albumin/Globulin Ratio 0.8L Current Medications Medications (Trade) Dose Ordered Sig/Deidre Route PRN Reason Start Time Stop Time Status Last Admin Dose Admin Acetaminophen (Tylenol) 650 mg Q4H PRN ORAL Fever 06/27/18 18:56 07/27/18 18:55 06/28/18 09:49 Acetaminophen/ Hydrocodone Bitart ([place] 5/325) 1 tab Q6H PRN ORAL For Pain 06/28/18 19:45 07/05/18 19:44 06/29/18 09:20 Albuterol/ Ipratropium (Albuterol/ Ipratropium) 3 ml Q4H PRN HHN Shortness of Breath 06/27/18 18:57 07/02/18 18:56 06/28/18 03:35 Aspirin (ASA) 81 mg DAILY ORAL 06/29/18 09:00 07/29/18 08:59 06/29/18 08:24 Atorvastatin Calcium (Lipitor) 20 mg BEDTIME ORAL 06/28/18 21:00 07/28/18 20:59 06/28/18 20:16 Dextrose (Dextrose 50%) 25 ml Q30M PRN IV Hypoglycemia 06/28/18 14:15 07/28/18 14:14 Dextrose (Dextrose 50%) 50 ml Q30M PRN IV Hypoglycemia 06/28/18 14:15 07/28/18 14:14 Furosemide (Lasix) 40 mg EVERY 8 HOURS IV 06/27/18 22:00 07/27/18 21:59 06/29/18 06:19 Heparin Sodium (Porcine) (Heparin 5000 units/ml) 5,000 units EVERY 12 HOURS SUBQ 06/27/18 21:00 07/27/18 20:59 06/29/18 08:05 Insulin Aspart (NovoLOG) BEFORE MEALS AND HS SUBQ 06/28/18 16:30 07/28/18 16:29 06/29/18 11:40 Metoprolol Tartrate (Lopressor) 25 mg EVERY 12 HOURS ORAL 06/28/18 21:00 07/28/18 20:59 06/29/18 08:04 Ondansetron HCl (Zofran) 4 mg Q6H PRN IVP Nausea & Vomiting 06/27/18 18:56 07/27/18 18:55 Pantoprazole (Protonix) 40 mg EVERY 12 HOURS IVP 06/28/18 21:00 07/28/18 20:59 06/29/18 08:05 Polyethylene Glycol (Miralax) 17 gm DAILYPRN PRN ORAL Constipation 06/27/18 18:56 07/27/18 18:55 Promethazine HCl/ Codeine (Phenergan with Codeine) 5 ml Q4H PRN ORAL For Cough 06/28/18 14:15 07/28/18 14:14 Sucralfate (Carafate) 1 gm FOUR TIMES A DAY ORAL 06/28/18 18:00 07/28/18 17:59 06/29/18 08:05 Temazepam (Restoril) 15 mg HSPRN PRN ORAL Insomnia 06/27/18 21:00 07/04/18 20:59 06/28/18 22:39 Vancomycin HCl (Vanco rx to dose) 1 ea DAILY PRN MISC Per rx protocol 06/29/18 10:15 07/29/18 10:14 Vancomycin HCl 1.5 gm/Dextrose 275 ml @ 137.5 mls/ hr ONCE ONCE IVPB 06/29/18 11:30 06/29/18 13:29 06/29/18 11:41 Vancomycin HCl 1 gm/Dextrose 275 ml @ 183.708 mls/hr Q24H IVPB 06/30/18 11:30 07/05/18 11:29 Tawanna Watkins MD Jun 29, 2018 12:46
--- NOTE | 2018-06-29 14:12 | Physician Query ---
--------- THIS DOCUMENT IS A PERMANENT PART OF THE MEDICAL RECORD --------- PLEASE COMPLETE THE DOCUMENT BEFORE SIGNING Dear Dr. ANA M JASMINE Date: 06/29/18 Barrel Assembler/CDS Name: Bruno RUIZ Barrel Assembler / CDS Phone # Exercise your independent professional judgment when responding to query. Question asked do not imply a particular answer is desired/expected Clinical Documentation States: "Congestive heart failure with diastolic dysfunction. The patient is on Lasix 40 mg IV every 8 hours." -- documented in Cardiology consultation note Clinical Findings Show: BNP = 452 pg/ml Echocardiogram = 55-60% Diuretic = Lasix 40 mg IV q 8 hrs Please Clarify the ACUITY & ETIOLOGY of CHF: Acuity [] Acute [] Chronic [] Acute on Chronic Etiology [] CHF due to Hypertension [] Cardiomyopathy [] Valvular Heart Disease [] Coronary Artery Disease [] Unable to determine [] Other: Condition Present on Admission: [] Yes [] No []Clinically Undeterminable Please also document in your Progress Notes and/or Discharge Summary and indicate if the condition was present on admission. ANA M JASMINE M.D. DATE & TIME [facility]
--- NOTE | 2018-06-29 15:42 | Internal Med Progress Note ---
Subjective Date of Service: Jun 29, 2018 Physician Name Aldair Card Attending Physician Nahun Alfaro MD Current Medications Medications (Trade) Dose Ordered Sig/Deidre Route PRN Reason Start Time Stop Time Status Last Admin Dose Admin Acetaminophen (Tylenol) 650 mg Q4H PRN ORAL Fever 06/27/18 18:56 07/27/18 18:55 06/28/18 09:49 Acetaminophen/ Hydrocodone Bitart ([place] 5/325) 1 tab Q6H PRN ORAL For Pain 06/28/18 19:45 07/05/18 19:44 06/29/18 09:20 Albuterol/ Ipratropium (Albuterol/ Ipratropium) 3 ml Q4H PRN HHN Shortness of Breath 06/27/18 18:57 07/02/18 18:56 06/28/18 03:35 Aspirin (ASA) 81 mg DAILY ORAL 06/29/18 09:00 07/29/18 08:59 06/29/18 08:24 Atorvastatin Calcium (Lipitor) 20 mg BEDTIME ORAL 06/28/18 21:00 07/28/18 20:59 06/28/18 20:16 Dextrose (Dextrose 50%) 25 ml Q30M PRN IV Hypoglycemia 06/28/18 14:15 07/28/18 14:14 Dextrose (Dextrose 50%) 50 ml Q30M PRN IV Hypoglycemia 06/28/18 14:15 07/28/18 14:14 Furosemide (Lasix) 40 mg EVERY 8 HOURS IV 06/27/18 22:00 07/27/18 21:59 06/29/18 13:19 Heparin Sodium (Porcine) (Heparin 5000 units/ml) 5,000 units EVERY 12 HOURS SUBQ 06/27/18 21:00 07/27/18 20:59 06/29/18 08:05 Insulin Aspart (NovoLOG) BEFORE MEALS AND HS SUBQ 06/28/18 16:30 07/28/18 16:29 06/29/18 11:40 Metoprolol Tartrate (Lopressor) 25 mg EVERY 12 HOURS ORAL 06/28/18 21:00 07/28/18 20:59 06/29/18 08:04 Ondansetron HCl (Zofran) 4 mg Q6H PRN IVP Nausea & Vomiting 06/27/18 18:56 07/27/18 18:55 Pantoprazole (Protonix) 40 mg EVERY 12 HOURS IVP 06/28/18 21:00 07/28/18 20:59 06/29/18 08:05 Polyethylene Glycol (Miralax) 17 gm DAILYPRN PRN ORAL Constipation 06/27/18 18:56 07/27/18 18:55 Promethazine HCl/ Codeine (Phenergan with Codeine) 5 ml Q4H PRN ORAL For Cough 06/28/18 14:15 07/28/18 14:14 Sucralfate (Carafate) 1 gm FOUR TIMES A DAY ORAL 06/28/18 18:00 07/28/18 17:59 06/29/18 13:18 Temazepam (Restoril) 15 mg HSPRN PRN ORAL Insomnia 06/27/18 21:00 07/04/18 20:59 06/28/18 22:39 Vancomycin HCl (Vanco rx to dose) 1 ea DAILY PRN MISC Per rx protocol 06/29/18 10:15 07/29/18 10:14 Vancomycin HCl 1 gm/Dextrose 275 ml @ 183.708 mls/hr Q24H IVPB 06/30/18 11:30 07/05/18 11:29 Allergies: Coded Allergies: No Known Allergies (Unverified , 06/27/18) ROS Limited/Unobtainable: No Constitutional: Reports: no symptoms HEENT: Reports: no symptoms Cardiovascular: Reports: no symptoms Respiratory: Reports: no symptoms Gastrointestinal/Abdominal: Reports: no symptoms Genitourinary: Reports: no symptoms Neurologic/Psychiatric: Reports: no symptoms Subjective 83 YO F with diabetes II admitted with hypoglycemia. Cover for Int Med-Dr Alfaro. Objective Last Vital Signs Date Time Temp Pulse Resp B/P (MAP) Pulse Ox O2 Delivery O2 Flow Rate FiO2 06/29/18 11:57 61 06/29/18 09:50 98.7 06/29/18 09:00 Nasal Cannula 2.0 Nasal Cannula 2.0 06/29/18 08:04 124/70 06/29/18 08:00 18 95 06/29/18 07:46 28 Laboratory Tests Test 06/29/18 05:20 White Blood Count 5.0 K/UL (4.8-10.8) Red Blood Count 3.55 M/UL (4.20-5.40) L Hemoglobin 9.7 G/DL (12.0-16.0) L Hematocrit 32.8 % (37.0-47.0) L Mean Corpuscular Volume 92 FL (80-99) Mean Corpuscular Hemoglobin 27.3 PG (27.0-31.0) Mean Corpuscular Hemoglobin Concent 29.6 G/DL (32.0-36.0) L Red Cell Distribution Width 14.1 % (11.6-14.8) Platelet Count 193 K/UL (150-450) Mean Platelet Volume 8.4 FL (6.5-10.1) Neutrophils (%) (Auto) 48.0 % (45.0-75.0) Lymphocytes (%) (Auto) 31.0 % (20.0-45.0) Monocytes (%) (Auto) 11.2 % (1.0-10.0) H Eosinophils (%) (Auto) 7.0 % (0.0-3.0) H Basophils (%) (Auto) 2.9 % (0.0-2.0) H Sodium Level 142 MMOL/L (136-145) Potassium Level 4.3 MMOL/L (3.5-5.1) Chloride Level 99 MMOL/L (98-107) Carbon Dioxide Level 39 MMOL/L (21-32) H Anion Gap 3 mmol/L (5-15) L Blood Urea Nitrogen 35 mg/dL (7-18) H Creatinine 1.2 MG/DL (0.55-1.30) Estimat Glomerular Filtration Rate mL/min (>60) Glucose Level 128 MG/DL (74-106) H Calcium Level 9.0 MG/DL (8.5-10.1) Total Bilirubin 0.3 MG/DL (0.2-1.0) Aspartate Amino Transf (AST/SGOT) 25 U/L (15-37) Alanine Aminotransferase (ALT/SGPT) 33 U/L (12-78) Alkaline Phosphatase 97 U/L (46-116) Troponin I 0.045 ng/mL (0.000-0.056) Pro-B-Type Natriuretic Peptide 452 pg/mL (0-125) H Total Protein 6.6 G/DL (6.4-8.2) Albumin 3.0 G/DL (3.4-5.0) L Globulin 3.6 g/dL Albumin/Globulin Ratio 0.8 (1.0-2.7) L Microbiology Date/Time Source Procedure Growth Status 06/27/18 14:37 Blood Blood Culture - Preliminary NO GROWTH AFTER 24 HOURS Resulted 06/27/18 14:30 Blood Blood Culture - Preliminary Bacillus Sp Not B. Anthracis Resulted 06/27/18 19:15 Nasal Nares MRSA Culture - Final NO METHICILLIN RESISTANT STAPH AUREUS... Complete 06/27/18 19:00 Rectum VRE Culture - Final NO VANCOMYCIN RESISTANT ENTEROCOCCUS ... Complete 06/27/18 19:00 Rectum - Final NO CARBAPENEM-RESISTANT ENTEROBACTERI... Complete Intake and Output 06/28/18 06/29/18 18:59 06:59 Intake Total 730 ml 500 ml Output Total 2850 ml 2250 ml Balance -2120 ml -1750 ml Intake Oral 730 ml 500 ml Output Urine Total 2850 ml 2250 ml Objective PHYSICAL EXAMINATION: GENERAL: The patient is a well-developed and well-nourished female, in no apparent distress. HEENT: Eyes, pupils equal and responsive to light and accommodation. Extraocular movements are intact. NECK: Supple without lymphadenopathy. CHEST: Lungs are clear to auscultation bilaterally without wheezes or rales. CARDIOVASCULAR: Regular rate. S1-S2 are normal without murmurs, rubs, or gallops. ABDOMEN: Soft, nontender, and nondistended. Positive bowel sounds. No evidence of hepatosplenomegaly. Currently, no rebound or guarding noted. EXTREMITIES: Negative for clubbing, cyanosis, or edema. RECTAL/GENITAL: Refused. NEUROLOGIC: Cranial nerves II through XII are grossly intact without focal deficits. Motor strength is 5/5 bilaterally. Deep tendon reflexes are 2+ plantar. Assessment/Plan Problem List: (1) GERD (gastroesophageal reflux disease) Assessment & Plan: Continue protonix (2) Dementia (3) Hypoglycemia Assessment & Plan: Improving. Continue novolog sliding scale (4) Diabetes mellitus (5) HTN (hypertension) Assessment & Plan: Continue lopressor (6) CHF exacerbation (7) COPD (chronic obstructive pulmonary disease) (8) COPD exacerbation (9) Bacteremia Assessment & Plan: 1/2 bottles gram neg morenita. Await ID consult Aldair Card MD Jun 29, 2018 15:42
--- NOTE | 2018-06-29 15:46 | Cardiac Electrophysiology PN ---
Assessment/Plan Assessment/Plan 1. Troponin elevation. 2 out of 4 troponins are negative. The EKG, however, do not show any acute ischemic changes. She is mildly azotemic.No CP. EF 55% The patient is on aspirin and Lopressor and statin. After stabilization, the patient likely would need a stress test 3. Congestive heart failure with diastolic dysfunction. The patient is on Lasix 40 mg IV every 8 hours and Lopressor 4. Obesity. 5. Chronic obstructive pulmonary disease/ PNA. Under management of Dr. Watkins. Subjective Subjective Comfortable in NAD Objective Last 24 Hour Vital Signs Date Time Temp Pulse Resp B/P (MAP) Pulse Ox O2 Delivery O2 Flow Rate FiO2 06/29/18 11:57 61 06/29/18 09:50 98.7 06/29/18 09:00 Nasal Cannula 2.0 Nasal Cannula 2.0 06/29/18 08:04 68 124/70 06/29/18 08:00 98.7 68 18 124/70 (88) 95 06/29/18 07:55 68 06/29/18 07:46 94 Nasal Cannula 2.0 28 06/29/18 07:46 Nasal Cannula 2.0 28 06/29/18 04:00 98.7 68 18 126/49 (74) 95 06/29/18 03:49 66 06/29/18 00:00 97.3 55 18 104/47 (66) 94 06/28/18 23:57 71 06/28/18 21:00 Nasal Cannula 2.0 Nasal Cannula 2.0 06/28/18 20:04 68 109/50 06/28/18 20:00 98.1 68 20 109/50 (69) 94 06/28/18 19:56 71 06/28/18 19:39 96 Nasal Cannula 2.0 28 06/28/18 19:39 Nasal Cannula 2.0 28 06/28/18 16:00 97.2 68 18 118/46 (70) 94 06/28/18 15:56 68 Intake and Output 06/28/18 06/29/18 18:59 06:59 Intake Total 730 ml 500 ml Output Total 2850 ml 2250 ml Balance -2120 ml -1750 ml Intake Oral 730 ml 500 ml Output Urine Total 2850 ml 2250 ml Laboratory Tests Test 06/29/18 05:20 White Blood Count 5.0 K/UL (4.8-10.8) Red Blood Count 3.55 M/UL (4.20-5.40) L Hemoglobin 9.7 G/DL (12.0-16.0) L Hematocrit 32.8 % (37.0-47.0) L Mean Corpuscular Volume 92 FL (80-99) Mean Corpuscular Hemoglobin 27.3 PG (27.0-31.0) Mean Corpuscular Hemoglobin Concent 29.6 G/DL (32.0-36.0) L Red Cell Distribution Width 14.1 % (11.6-14.8) Platelet Count 193 K/UL (150-450) Mean Platelet Volume 8.4 FL (6.5-10.1) Neutrophils (%) (Auto) 48.0 % (45.0-75.0) Lymphocytes (%) (Auto) 31.0 % (20.0-45.0) Monocytes (%) (Auto) 11.2 % (1.0-10.0) H Eosinophils (%) (Auto) 7.0 % (0.0-3.0) H Basophils (%) (Auto) 2.9 % (0.0-2.0) H Sodium Level 142 MMOL/L (136-145) Potassium Level 4.3 MMOL/L (3.5-5.1) Chloride Level 99 MMOL/L (98-107) Carbon Dioxide Level 39 MMOL/L (21-32) H Anion Gap 3 mmol/L (5-15) L Blood Urea Nitrogen 35 mg/dL (7-18) H Creatinine 1.2 MG/DL (0.55-1.30) Estimat Glomerular Filtration Rate mL/min (>60) Glucose Level 128 MG/DL (74-106) H Calcium Level 9.0 MG/DL (8.5-10.1) Total Bilirubin 0.3 MG/DL (0.2-1.0) Aspartate Amino Transf (AST/SGOT) 25 U/L (15-37) Alanine Aminotransferase (ALT/SGPT) 33 U/L (12-78) Alkaline Phosphatase 97 U/L (46-116) Troponin I 0.045 ng/mL (0.000-0.056) Pro-B-Type Natriuretic Peptide 452 pg/mL (0-125) H Total Protein 6.6 G/DL (6.4-8.2) Albumin 3.0 G/DL (3.4-5.0) L Globulin 3.6 g/dL Albumin/Globulin Ratio 0.8 (1.0-2.7) L Microbiology Date/Time Source Procedure Growth Status 06/27/18 14:37 Blood Blood Culture - Preliminary NO GROWTH AFTER 24 HOURS Resulted 06/27/18 14:30 Blood Blood Culture - Preliminary Bacillus Sp Not B. Anthracis Resulted 06/27/18 19:15 Nasal Nares MRSA Culture - Final NO METHICILLIN RESISTANT STAPH AUREUS... Complete 06/27/18 19:00 Rectum VRE Culture - Final NO VANCOMYCIN RESISTANT ENTEROCOCCUS ... Complete 06/27/18 19:00 Rectum - Final NO CARBAPENEM-RESISTANT ENTEROBACTERI... Complete Objective HEAD AND NECK: No JVD. LUNGS: Clear. CARDIOVASCULAR: Regular S1 and S2 with no gallop or murmur. ABDOMEN: Soft. EXTREMITIES: 1+ pitting edema. Alvin Kiran MD Jun 29, 2018 15:46
[2018-06-29 16:00] VITALS: BP 127/72
--- NOTE | 2018-06-29 19:17 | NUR ---
NURSE NOTES: pt awake alert, no distress. no sob. no c/o pain. bed in lowest position, locked. call light within reach. will monitor.
--- NOTE | 2018-06-29 19:26 | NUR ---
HAND-OFF: Report given to CAROL GRANADOS.
--- NOTE | 2018-06-29 19:30 | NUR ---
NURSE NOTES: Received report from DARWIN Horn. Pt is awake and resting in bed. In no acute distress. IV line intact and patent. Bed in lowest position, call light within reach. Will continue plan of care.
[2018-06-29 20:00] VITALS: BP 118/54
[2018-06-29] MEDS: Atorvastatin 20mg tab ORAL SCH (21:06)
[2018-06-30] VITALS: BP 117/61
[2018-06-30 04:00] VITALS: BP 115/65
[2018-06-30] MEDS: Albuterol/Ipratropium 3ml neb HHN PRN ×2 (04:35→09:04)
[2018-06-30] MEDS: NovoLOG Insulin Flexpen SUBQ SCH ×4 (06:13→21:44)
[2018-06-30] MEDS: HYDROcodone/Acetamin 5/325 tab ORAL PRN (06:25)
[2018-06-30 06:48] LABS: BASOPHILS % (AUTO) 2.7 % (0.0-2.0); EOSINOPHILS % (AUTO) 6.6 % (0.0-3.0); HEMATOCRIT 33.7 % (37.0-47.0); HEMOGLOBIN 10.2 G/DL (12.0-16.0); LYMPHOCYTES % (AUTO) 22.9 % (20.0-45.0); MEAN CORPUSCULAR VOLUME 92 FL (80-99); MONOCYTES % (AUTO) 9.8 % (1.0-10.0); PLATELET COUNT 179 K/UL (150-450); RED BLOOD COUNT 3.68 M/UL (4.20-5.40); RED CELL DISTRIBUTION WIDTH 13.8 % (11.6-14.8); WHITE BLOOD COUNT 5.1 K/UL (4.8-10.8)
--- NOTE | 2018-06-30 07:00 | NUR ---
HAND-OFF: Report given to DARWIN Horn.
--- NOTE | 2018-06-30 07:05 | NUR ---
NURSE NOTES: pt awake alert, no distress. no sob. schaeffer patent and intact draining yellow urine, call light within reach. will monitor.
[2018-06-30 07:52] VITALS: BP 110/50
[2018-06-30 08:17] LABS: ALANINE AMINOTRANSFERASE 34 U/L (12-78); ALBUMIN 3.1 G/DL (3.4-5.0); ALBUMIN/GLOBULIN RATIO 0.8 (1.0-2.7); ALKALINE PHOSPHATASE 90 U/L (46-116); ANION GAP 2 mmol/L (5-15); ASPARTATE AMINO TRANSFERASE 18 U/L (15-37); BILIRUBIN,TOTAL 0.4 MG/DL (0.2-1.0); BLOOD UREA NITROGEN 33 mg/dL (7-18); CALCIUM 9.1 MG/DL (8.5-10.1); CHLORIDE 99 MMOL/L (98-107); CREATININE 1.2 MG/DL (0.55-1.30); POTASSIUM 4.2 MMOL/L (3.5-5.1); SODIUM 143 MMOL/L (136-145)
[2018-06-30 08:23] LABS: CARBON DIOXIDE 42 MMOL/L (21-32)
[2018-06-30] MEDS: Aspirin Baby 81mg ORAL SCH (08:28)
[2018-06-30] MEDS: Metoprolol 25mg tab ORAL SCH ×2 (08:28→21:31)
[2018-06-30] MEDS: Pantoprazole Inj IVP SCH ×2 (08:28→21:30)
[2018-06-30] MEDS: Sucralfate 1gm tab ORAL SCH ×4 (08:28→21:30)
[2018-06-30] MEDS: Heparin 5000 units/ml inj SUBQ SCH ×2 (08:29→21:32)
[2018-06-30] MEDS ORDERED: Vancomycin 1gm/D5W 275ml IVPB SCH ×2 (11:30)
--- NOTE | 2018-06-30 11:42 | Cardiology Report ---
APPROVED REPORT EXAM: Two-dimensional and M-mode echocardiogram with Doppler and color Doppler. INDICATION LV FUNCTION M-Mode DIMENSIONS IVSd1.3 (0.7-1.1cm)Left Atrium (MM)4.3 (1.6-4.0cm) LVDd4.5 (3.5-5.6cm)Aortic Root2.5 (2.0-3.7cm) PWd1.3 (0.7-1.1cm)Aortic Cusp Exc.1.5 (1.5-2.0cm) IVSs1.9 cm LVDs2.1 (2.5-4.0cm) PWs2.0 cm Normal left ventricular chamber size, systolic function and wall motion to extend visualized . Left ventricular ejection fraction estimated to be 55-60%. Mild left ventricular hypertrophy by 2-D. No evidence of pericardial effusion. Mild bi-atrial enlargement. Right ventricular chamber sizes is within normal limits. Focal aortic valve sclerosis with adequate cusp excursion. Mildly thickened mitral valve leaflets with normal excursion. Mild mitral annulus and aortic root calcification. Pulmonic valve not well visualized. IVC dilated at 2.5 cm without physiologic collapse suggestive of increased RA pressure. A color flow and spectral Doppler study was performed and revealed: Trace aortic insufficiency . Mitral inflow velocities indicates possible pseudo normalization pattern implying moderately elevated left atrial pressure (Grade II ). Mild mitral regurgitation. Mild to moderate tricuspid regurgitation. Tricuspid systolic velocities suggests peak right ventricular systolic pressure of 54mmHg,consistent with moderate pulmonary hypertension . Pulmonic regurgitation present .
[2018-06-30 11:46] VITALS: BP 90/50
--- NOTE | 2018-06-30 12:14 | Pulmonology Progress Note ---
Assessment/Plan Problems: (1) Acute respiratory failure (2) Bacteremia (3) Pulmonary edema (4) COPD (chronic obstructive pulmonary disease) (5) Unable to ambulate (6) HTN (hypertension) (7) Morbid obesity (8) Diabetes mellitus Assessment/Plan 6000cc negative fluid balance add Diamox b/o increasing HCo2 watch carefully, bun/creatinine, maybe one more day of lasix 40Q8 Echo noted, diastolic dysfunction decrease lasix dose, watch bun/creatinine titrate cardiac meds pt/ot on Aspirin and beta blockers BC positive, for GP morenita, most likely contaminant, ID consult called keep in teli because of positive troponin and potential stress test Subjective ROS Limited/Unobtainable: No Constitutional: Reports: no symptoms HEENT: Repors: no symptoms Respiratory: Reports: no symptoms Allergies: Coded Allergies: No Known Allergies (Unverified , 06/27/18) Objective Last 24 Hour Vital Signs Date Time Temp Pulse Resp B/P (MAP) Pulse Ox O2 Delivery O2 Flow Rate FiO2 06/30/18 11:46 98.3 66 18 90/50 (63) 96 06/30/18 09:18 69 20 99 Nasal Cannula 2.0 28 06/30/18 09:04 67 21 89 Nasal Cannula 2.0 28 06/30/18 08:28 66 110/50 06/30/18 07:52 98.3 66 18 110/50 (70) 96 06/30/18 07:49 68 06/30/18 07:19 96 Nasal Cannula 2.0 28 06/30/18 07:19 Nasal Cannula 2.0 28 06/30/18 07:03 Nasal Cannula 2.0 Nasal Cannula 2.0 06/30/18 06:55 98.3 06/30/18 04:41 72 18 99 Nasal Cannula 2.0 28 06/30/18 04:33 72 18 97 Nasal Cannula 2.0 28 06/30/18 04:00 64 06/30/18 04:00 98.3 64 18 115/65 (82) 96 06/30/18 00:00 66 06/30/18 00:00 98.0 66 18 117/61 (79) 95 06/29/18 21:07 64 120/67 06/29/18 21:00 Nasal Cannula 2.0 Nasal Cannula 2.0 06/29/18 20:00 66 06/29/18 20:00 97.4 66 18 118/54 (75) 96 06/29/18 18:45 Nasal Cannula 2.0 28 06/29/18 18:45 97 Nasal Cannula 2.0 28 06/29/18 16:00 98.7 62 18 127/72 (90) 95 06/29/18 15:36 62 Intake and Output 06/29/18 06/30/18 19:00 07:00 Intake Total 640 ml Output Total 1700 ml 1000 ml Balance -1060 ml -1000 ml Intake Oral 640 ml Output Urine Total 1700 ml 1000 ml Objective General Appearance: WD/WN, no apparent distress Lines, tubes and drains: peripheral HEENT: normocephalic, atraumatic Neck: non-tender, normal alignment Respiratory/Chest: chest wall non-tender, lungs clear Breasts: no masses Cardiovascular/Chest: normal peripheral pulses Abdomen: normal bowel sounds, non tender Extremities: normal range of motion, + edema Skin Exam: normal pigmentation Microbiology Date/Time Source Procedure Growth Status 06/27/18 14:37 Blood Blood Culture - Preliminary NO GROWTH AFTER 24 HOURS Resulted 06/27/18 14:30 Blood Blood Culture - Preliminary Bacillus Sp Not B. Anthracis Gram Positive Cocci Resulted 06/27/18 19:15 Nasal Nares MRSA Culture - Final NO METHICILLIN RESISTANT STAPH AUREUS... Complete 06/27/18 19:00 Rectum VRE Culture - Final NO VANCOMYCIN RESISTANT ENTEROCOCCUS ... Complete 06/27/18 19:00 Rectum - Final NO CARBAPENEM-RESISTANT ENTEROBACTERI... Complete Laboratory Tests 06/29/18 18:50: Troponin I 0.044 06/30/18 05:10: White Blood Count 5.1, Red Blood Count 3.68L, Hemoglobin 10.2L, Hematocrit 33.7L , Mean Corpuscular Volume 92, Mean Corpuscular Hemoglobin 27.8, Mean Corpuscular Hemoglobin Concent 30.4L, Red Cell Distribution Width 13.8, Platelet Count 179, Mean Platelet Volume 8.2, Neutrophils (%) (Auto) 58.0, Lymphocytes (%) (Auto) 22.9, Monocytes (%) (Auto) 9.8, Eosinophils (%) (Auto) 6.6H, Basophils (%) (Auto) 2.7H, Sodium Level 143, Potassium Level 4.2, Chloride Level 99, Carbon Dioxide Level 42*H, Anion Gap 2L, Blood Urea Nitrogen 33H, Creatinine 1.2, Estimat Glomerular Filtration Rate , Glucose Level 108H, Calcium Level 9.1, Total Bilirubin 0.4, Aspartate Amino Transf (AST/SGOT) 18, Alanine Aminotransferase (ALT/SGPT) 34, Alkaline Phosphatase 90, Pro-B-Type Natriuretic Peptide 400H, Total Protein 7.0, Albumin 3.1L, Globulin 3.9, Albumin /Globulin Ratio 0.8L Current Medications Medications (Trade) Dose Ordered Sig/Deidre Route PRN Reason Start Time Stop Time Status Last Admin Dose Admin Acetaminophen (Tylenol) 650 mg Q4H PRN ORAL Fever 06/27/18 18:56 07/27/18 18:55 06/28/18 09:49 Acetaminophen/ Hydrocodone Bitart ([place] 5/325) 1 tab Q6H PRN ORAL For Pain 06/28/18 19:45 07/05/18 19:44 06/30/18 06:25 Albuterol/ Ipratropium (Albuterol/ Ipratropium) 3 ml Q4HRT HHN 06/30/18 15:00 07/05/18 14:59 Aspirin (ASA) 81 mg DAILY ORAL 06/29/18 09:00 07/29/18 08:59 06/30/18 08:28 Atorvastatin Calcium (Lipitor) 20 mg BEDTIME ORAL 06/28/18 21:00 07/28/18 20:59 06/29/18 21:06 Dextrose (Dextrose 50%) 25 ml Q30M PRN IV Hypoglycemia 06/28/18 14:15 07/28/18 14:14 Dextrose (Dextrose 50%) 50 ml Q30M PRN IV Hypoglycemia 06/28/18 14:15 07/28/18 14:14 Furosemide (Lasix) 40 mg EVERY 8 HOURS IV 06/27/18 22:00 07/27/18 21:59 06/30/18 06:31 Heparin Sodium (Porcine) (Heparin 5000 units/ml) 5,000 units EVERY 12 HOURS SUBQ 06/27/18 21:00 07/27/18 20:59 06/30/18 08:29 Insulin Aspart (NovoLOG) BEFORE MEALS AND HS SUBQ 06/28/18 16:30 07/28/18 16:29 06/30/18 11:34 Metoprolol Tartrate (Lopressor) 25 mg EVERY 12 HOURS ORAL 06/28/18 21:00 07/28/18 20:59 06/30/18 08:28 Ondansetron HCl (Zofran) 4 mg Q6H PRN IVP Nausea & Vomiting 06/27/18 18:56 07/27/18 18:55 Pantoprazole (Protonix) 40 mg EVERY 12 HOURS IVP 06/28/18 21:00 07/28/18 20:59 06/30/18 08:28 Polyethylene Glycol (Miralax) 17 gm DAILYPRN PRN ORAL Constipation 06/27/18 18:56 07/27/18 18:55 Promethazine HCl/ Codeine (Phenergan with Codeine) 5 ml Q4H PRN ORAL For Cough 06/28/18 14:15 07/28/18 14:14 Sucralfate (Carafate) 1 gm FOUR TIMES A DAY ORAL 06/28/18 18:00 07/28/18 17:59 06/30/18 08:28 Temazepam (Restoril) 15 mg HSPRN PRN ORAL Insomnia 06/27/18 21:00 07/04/18 20:59 06/28/18 22:39 Vancomycin HCl (Vanco rx to dose) 1 ea DAILY PRN MISC Per rx protocol 06/29/18 10:15 07/29/18 10:14 Vancomycin HCl 1 gm/Dextrose 275 ml @ 183.708 mls/hr Q24H IVPB 06/30/18 11:30 07/05/18 11:29 Tawanna Watkins MD Jun 30, 2018 12:14
[2018-06-30] MEDS: Albuterol/Ipratropium 3ml neb HHN SCH ×3 (15:03→23:00)
--- NOTE | 2018-06-30 15:03 | NUR ---
CASE MANAGEMENT: REVIEW 06/30/2018 SI: HYPOGLYCEMIA. CHF. COPD T 98.3 HR 66 RR 18 B/P 90/50 SATS 96% ON 2L/NC CO2 42 BUN 33 GLU 108 BNP 400 IS: LASIX IV Q8H PROTONIX IV Q12H LOPRESSOR PO Q12H DIAMOX IV Q12H ASA PO QD INSULIN ASPART SUB AC/HS VANCO IV Q24H : TO TELEMETRY UNIT
--- NOTE | 2018-06-30 16:02 | Internal Med Progress Note ---
Subjective Date of Service: Jun 30, 2018 Physician Name Aldair Card Attending Physician Nahun Alfaro MD Current Medications Medications (Trade) Dose Ordered Sig/Deidre Route PRN Reason Start Time Stop Time Status Last Admin Dose Admin Acetaminophen (Tylenol) 650 mg Q4H PRN ORAL Fever 06/27/18 18:56 07/27/18 18:55 06/28/18 09:49 Acetaminophen/ Hydrocodone Bitart ([place] 5/325) 1 tab Q6H PRN ORAL For Pain 06/28/18 19:45 07/05/18 19:44 06/30/18 06:25 Acetazolamide (Diamox 500mg Inj) 250 mg EVERY 12 HOURS IVP 06/30/18 21:00 07/30/18 20:59 Albuterol/ Ipratropium (Albuterol/ Ipratropium) 3 ml Q4HRT HHN 06/30/18 15:00 07/05/18 14:59 06/30/18 15:03 Aspirin (ASA) 81 mg DAILY ORAL 06/29/18 09:00 07/29/18 08:59 06/30/18 08:28 Atorvastatin Calcium (Lipitor) 20 mg BEDTIME ORAL 06/28/18 21:00 07/28/18 20:59 06/29/18 21:06 Dextrose (Dextrose 50%) 25 ml Q30M PRN IV Hypoglycemia 06/28/18 14:15 07/28/18 14:14 Dextrose (Dextrose 50%) 50 ml Q30M PRN IV Hypoglycemia 06/28/18 14:15 07/28/18 14:14 Furosemide (Lasix) 40 mg EVERY 8 HOURS IV 06/27/18 22:00 07/27/18 21:59 06/30/18 14:50 Heparin Sodium (Porcine) (Heparin 5000 units/ml) 5,000 units EVERY 12 HOURS SUBQ 06/27/18 21:00 07/27/18 20:59 06/30/18 08:29 Insulin Aspart (NovoLOG) BEFORE MEALS AND HS SUBQ 06/28/18 16:30 07/28/18 16:29 06/30/18 11:34 Metoprolol Tartrate (Lopressor) 25 mg EVERY 12 HOURS ORAL 06/28/18 21:00 07/28/18 20:59 06/30/18 08:28 Ondansetron HCl (Zofran) 4 mg Q6H PRN IVP Nausea & Vomiting 06/27/18 18:56 07/27/18 18:55 Pantoprazole (Protonix) 40 mg EVERY 12 HOURS IVP 06/28/18 21:00 07/28/18 20:59 06/30/18 08:28 Polyethylene Glycol (Miralax) 17 gm DAILYPRN PRN ORAL Constipation 06/27/18 18:56 07/27/18 18:55 Promethazine HCl/ Codeine (Phenergan with Codeine) 5 ml Q4H PRN ORAL For Cough 06/28/18 14:15 07/28/18 14:14 Sucralfate (Carafate) 1 gm FOUR TIMES A DAY ORAL 06/28/18 18:00 07/28/18 17:59 06/30/18 13:10 Temazepam (Restoril) 15 mg HSPRN PRN ORAL Insomnia 06/27/18 21:00 07/04/18 20:59 06/28/18 22:39 Vancomycin HCl (Vanco rx to dose) 1 ea DAILY PRN MISC Per rx protocol 06/29/18 10:15 07/29/18 10:14 Vancomycin HCl 1 gm/Dextrose 275 ml @ 183.708 mls/hr Q24H IVPB 06/30/18 11:30 07/05/18 11:29 06/30/18 13:10 Allergies: Coded Allergies: No Known Allergies (Unverified , 06/27/18) ROS Limited/Unobtainable: No Constitutional: Reports: no symptoms HEENT: Reports: no symptoms Cardiovascular: Reports: no symptoms Respiratory: Reports: no symptoms Gastrointestinal/Abdominal: Reports: no symptoms Genitourinary: Reports: no symptoms Neurologic/Psychiatric: Reports: no symptoms Subjective 83 YO F with diabetes II admitted with hypoglycemia. Cover for Int Johnny-Dr Alfaro. Objective Last Vital Signs Date Time Temp Pulse Resp B/P (MAP) Pulse Ox O2 Delivery O2 Flow Rate FiO2 06/30/18 15:16 68 19 97 Nasal Cannula 2.0 28 06/30/18 11:46 98.3 90/50 (63) Laboratory Tests Test 06/29/18 18:50 06/30/18 05:10 Troponin I 0.044 ng/mL (0.000-0.056) White Blood Count 5.1 K/UL (4.8-10.8) Red Blood Count 3.68 M/UL (4.20-5.40) L Hemoglobin 10.2 G/DL (12.0-16.0) L Hematocrit 33.7 % (37.0-47.0) L Mean Corpuscular Volume 92 FL (80-99) Mean Corpuscular Hemoglobin 27.8 PG (27.0-31.0) Mean Corpuscular Hemoglobin Concent 30.4 G/DL (32.0-36.0) L Red Cell Distribution Width 13.8 % (11.6-14.8) Platelet Count 179 K/UL (150-450) Mean Platelet Volume 8.2 FL (6.5-10.1) Neutrophils (%) (Auto) 58.0 % (45.0-75.0) Lymphocytes (%) (Auto) 22.9 % (20.0-45.0) Monocytes (%) (Auto) 9.8 % (1.0-10.0) Eosinophils (%) (Auto) 6.6 % (0.0-3.0) H Basophils (%) (Auto) 2.7 % (0.0-2.0) H Sodium Level 143 MMOL/L (136-145) Potassium Level 4.2 MMOL/L (3.5-5.1) Chloride Level 99 MMOL/L (98-107) Carbon Dioxide Level 42 MMOL/L (21-32) *H Anion Gap 2 mmol/L (5-15) L Blood Urea Nitrogen 33 mg/dL (7-18) H Creatinine 1.2 MG/DL (0.55-1.30) Estimat Glomerular Filtration Rate mL/min (>60) Glucose Level 108 MG/DL (74-106) H Calcium Level 9.1 MG/DL (8.5-10.1) Total Bilirubin 0.4 MG/DL (0.2-1.0) Aspartate Amino Transf (AST/SGOT) 18 U/L (15-37) Alanine Aminotransferase (ALT/SGPT) 34 U/L (12-78) Alkaline Phosphatase 90 U/L (46-116) Pro-B-Type Natriuretic Peptide 400 pg/mL (0-125) H Total Protein 7.0 G/DL (6.4-8.2) Albumin 3.1 G/DL (3.4-5.0) L Globulin 3.9 g/dL Albumin/Globulin Ratio 0.8 (1.0-2.7) L Microbiology Date/Time Source Procedure Growth Status 06/27/18 19:15 Nasal Nares MRSA Culture - Final NO METHICILLIN RESISTANT STAPH AUREUS... Complete 06/27/18 19:00 Rectum VRE Culture - Final NO VANCOMYCIN RESISTANT ENTEROCOCCUS ... Complete 06/27/18 19:00 Rectum - Final NO CARBAPENEM-RESISTANT ENTEROBACTERI... Complete Intake and Output 06/29/18 06/30/18 18:59 06:59 Intake Total 640 ml Output Total 1700 ml 1000 ml Balance -1060 ml -1000 ml Intake Oral 640 ml Output Urine Total 1700 ml 1000 ml Objective PHYSICAL EXAMINATION: GENERAL: The patient is a well-developed and well-nourished female, in no apparent distress. HEENT: Eyes, pupils equal and responsive to light and accommodation. Extraocular movements are intact. NECK: Supple without lymphadenopathy. CHEST: Lungs are clear to auscultation bilaterally without wheezes or rales. CARDIOVASCULAR: Regular rate. S1-S2 are normal without murmurs, rubs, or gallops. ABDOMEN: Soft, nontender, and nondistended. Positive bowel sounds. No evidence of hepatosplenomegaly. Currently, no rebound or guarding noted. EXTREMITIES: Negative for clubbing, cyanosis, or edema. RECTAL/GENITAL: Refused. NEUROLOGIC: Cranial nerves II through XII are grossly intact without focal deficits. Motor strength is 5/5 bilaterally. Deep tendon reflexes are 2+ plantar. Assessment/Plan Problem List: (1) GERD (gastroesophageal reflux disease) Assessment & Plan: Continue protonix (2) Dementia (3) Hypoglycemia Assessment & Plan: Improving. Continue novolog sliding scale (4) Diabetes mellitus (5) HTN (hypertension) Assessment & Plan: Continue lopressor (6) CHF exacerbation (7) COPD (chronic obstructive pulmonary disease) (8) COPD exacerbation (9) Bacteremia Assessment & Plan: 1/2 bottles gram neg bacillus. Await ID consult. Continue vanco for now Aldair Card MD Jun 30, 2018 16:02
[2018-06-30 16:59] VITALS: BP 122/73
--- NOTE | 2018-06-30 19:09 | NUR ---
HAND-OFF: Report given to CAROL GRANADOS.
[2018-06-30 20:00] VITALS: BP 129/53
[2018-06-30] MEDS: acetaZOLAMIDE 500mg Inj IVP SCH (21:30)
[2018-06-30] MEDS: Atorvastatin 20mg tab ORAL SCH (21:31)
[2018-07-01] VITALS: BP 130/65
[2018-07-01] MEDS: Albuterol/Ipratropium 3ml neb HHN SCH ×6 (03:10→23:17)
[2018-07-01 04:00] VITALS: BP 111/54
[2018-07-01] MEDS: NovoLOG Insulin Flexpen SUBQ SCH ×4 (06:15→20:58)
--- NOTE | 2018-07-01 07:25 | NUR ---
HAND-OFF: Report given to DARWIN Quintero.
--- NOTE | 2018-07-01 07:27 | NUR ---
NURSE NOTES: recvd pt. Pt is awake and alert AOX4, pt is on room air with no sign of sob or resp distress. Pt denies pain. Pt has schaeffer cath for retention, draining to gravity. Bed in lowest position, will continue with plan of care.
[2018-07-01 07:35] LABS: BASOPHILS % (AUTO) 2.1 % (0.0-2.0); EOSINOPHILS % (AUTO) 6.8 % (0.0-3.0); HEMATOCRIT 31.6 % (37.0-47.0); HEMOGLOBIN 9.7 G/DL (12.0-16.0); MEAN CORPUSCULAR VOLUME 91 FL (80-99); MONOCYTES % (AUTO) 12.2 % (1.0-10.0); NEUTROPHILS % (AUTO) 54.8 % (45.0-75.0); PLATELET COUNT 177 K/UL (150-450); RED BLOOD COUNT 3.46 M/UL (4.20-5.40); RED CELL DISTRIBUTION WIDTH 13.8 % (11.6-14.8); WHITE BLOOD COUNT 5.2 K/UL (4.8-10.8)
[2018-07-01 07:56] LABS: ALANINE AMINOTRANSFERASE 26 U/L (12-78); ALBUMIN/GLOBULIN RATIO 0.8 (1.0-2.7); ALKALINE PHOSPHATASE 87 U/L (46-116); ANION GAP 1 mmol/L (5-15); ASPARTATE AMINO TRANSFERASE 15 U/L (15-37); BILIRUBIN,TOTAL 0.5 MG/DL (0.2-1.0); BLOOD UREA NITROGEN 36 mg/dL (7-18); CALCIUM 9.4 MG/DL (8.5-10.1); CHLORIDE 98 MMOL/L (98-107); CREATININE 1.2 MG/DL (0.55-1.30); PHOSPHORUS 4.3 MG/DL (2.5-4.9); POTASSIUM 3.7 MMOL/L (3.5-5.1); SODIUM 143 MMOL/L (136-145)
[2018-07-01 07:58] LABS: CARBON DIOXIDE 42 MMOL/L (21-32)
[2018-07-01 08:00] VITALS: BP 114/48
--- NOTE | 2018-07-01 08:05 | NUR ---
NURSE NOTES: recvd call from lab, CO2 is 42, no change, dr Watkins is already aware of critical value
[2018-07-01] MEDS: Metoprolol 25mg tab ORAL SCH ×2 (09:00→20:55)
[2018-07-01] MEDS: Pantoprazole Inj IVP SCH (09:15)
[2018-07-01] MEDS: Sucralfate 1gm tab ORAL SCH ×4 (09:15→20:55)
[2018-07-01] MEDS: acetaZOLAMIDE 500mg Inj IVP SCH ×2 (09:15→21:57)
[2018-07-01] MEDS: Aspirin Baby 81mg ORAL SCH (09:15)
[2018-07-01] MEDS: Heparin 5000 units/ml inj SUBQ SCH ×2 (09:17→20:59)
--- NOTE | 2018-07-01 11:35 | Pulmonology Progress Note ---
Assessment/Plan Problems: (1) Acute respiratory failure (2) Bacteremia (3) Pulmonary edema (4) COPD (chronic obstructive pulmonary disease) (5) Unable to ambulate (6) HTN (hypertension) (7) Morbid obesity (8) Diabetes mellitus Assessment/Plan [id number] negative fluid balance add Diamox b/o increasing HCo2 watch carefully, bun/creatinine, decrease lasix 40 to Q daily Echo noted, diastolic dysfunction decrease lasix dose, watch bun/creatinine titrate cardiac meds pt/ot on Aspirin and beta blockers BC positive, for GP morenita, most likely contaminant, ID consult called, dc vancomycin keep in teli because of positive troponin and potential stress test Subjective ROS Limited/Unobtainable: No Constitutional: Reports: no symptoms HEENT: Repors: no symptoms Allergies: Coded Allergies: No Known Allergies (Unverified , 06/27/18) Objective Last 24 Hour Vital Signs Date Time Temp Pulse Resp B/P (MAP) Pulse Ox O2 Delivery O2 Flow Rate FiO2 07/01/18 10:42 78 16 98 Nasal Cannula 2.0 28 07/01/18 10:34 70 16 97 Nasal Cannula 28.0 07/01/18 09:00 Nasal Cannula 2.0 07/01/18 09:00 61 114/48 07/01/18 08:00 98.0 59 18 114/48 (70) 97 07/01/18 08:00 61 07/01/18 07:22 Nasal Cannula 2.0 28 07/01/18 07:22 Nasal Cannula 2.0 28 07/01/18 07:22 96 Nasal Cannula 2.0 28 07/01/18 07:22 Nasal Cannula 28.0 07/01/18 04:00 99.5 89 18 111/54 (73) 99 07/01/18 04:00 89 07/01/18 03:10 Nasal Cannula 2.0 28 07/01/18 03:10 Nasal Cannula 2.0 28 07/01/18 00:00 64 07/01/18 00:00 99.4 64 18 130/65 (86) 96 06/30/18 23:12 68 18 100 Nasal Cannula 2.0 28 06/30/18 23:00 65 18 99 Nasal Cannula 2.0 28 06/30/18 21:31 66 126/58 06/30/18 21:00 Nasal Cannula 2.0 06/30/18 20:00 59 3/31/19 20:00 99.3 59 18 129/53 (78) 96 06/30/18 19:23 71 18 94 Nasal Cannula 2.0 28 06/30/18 19:13 68 18 94 Nasal Cannula 2.0 28 06/30/18 19:13 94 Nasal Cannula 2.0 28 06/30/18 19:13 Nasal Cannula 2.0 28 06/30/18 16:59 98.3 62 18 122/73 (89) 96 06/30/18 15:36 59 06/30/18 15:16 68 19 97 Nasal Cannula 2.0 28 06/30/18 15:03 60 17 97 Nasal Cannula 3.0 32 06/30/18 11:54 61 06/30/18 11:46 98.3 66 18 90/50 (63) 96 Intake and Output 06/30/18 07/01/18 19:00 07:00 Intake Total 720 ml Output Total 1200 ml Balance -480 ml Intake Oral 720 ml Output Urine Total 1200 ml Objective General Appearance: WD/WN, no apparent distress Lines, tubes and drains: peripheral HEENT: normocephalic, atraumatic Neck: non-tender, normal alignment Respiratory/Chest: chest wall non-tender, lungs clear Breasts: no masses Cardiovascular/Chest: normal peripheral pulses Abdomen: normal bowel sounds, non tender Extremities: normal range of motion, + edema Skin Exam: normal pigmentation Microbiology Date/Time Source Procedure Growth Status 06/29/18 11:05 Blood Blood Culture - Preliminary NO GROWTH AFTER 24 HOURS Resulted 06/29/18 10:55 Blood Blood Culture - Preliminary NO GROWTH AFTER 24 HOURS Resulted 06/28/18 22:00 Nasal Nares MRSA Culture - Final NO METHICILLIN RESISTANT STAPH AUREUS... Complete Laboratory Tests 07/01/18 06:50: White Blood Count 5.2, Red Blood Count 3.46L, Hemoglobin 9.7L, Hematocrit 31.6L , Mean Corpuscular Volume 91, Mean Corpuscular Hemoglobin 27.9, Mean Corpuscular Hemoglobin Concent 30.6L, Red Cell Distribution Width 13.8, Platelet Count 177, Mean Platelet Volume 8.0, Neutrophils (%) (Auto) 54.8, Lymphocytes (%) (Auto) 24.0, Monocytes (%) (Auto) 12.2H, Eosinophils (%) (Auto) 6.8H, Basophils (%) (Auto) 2.1H, Erythrocyte Sedimentation Rate 54H, Sodium Level 143, Potassium Level 3.7, Chloride Level 98, Carbon Dioxide Level 42*H, Anion Gap 1L, Blood Urea Nitrogen 36H, Creatinine 1.2, Estimat Glomerular Filtration Rate , Glucose Level 93, Calcium Level 9.4, Phosphorus Level 4.3, Magnesium Level 2.0, Total Bilirubin 0.5, Aspartate Amino Transf (AST/SGOT) 15, Alanine Aminotransferase (ALT/SGPT) 26, Alkaline Phosphatase 87, C-Reactive Protein, Quantitative 0.6, Total Protein 6.7, Albumin 3.0L, Globulin 3.7, Albumin/Globulin Ratio 0.8L Current Medications Medications (Trade) Dose Ordered Sig/Deidre Route PRN Reason Start Time Stop Time Status Last Admin Dose Admin Acetaminophen (Tylenol) 650 mg Q4H PRN ORAL Fever 06/27/18 18:56 07/27/18 18:55 06/28/18 09:49 Acetaminophen/ Hydrocodone Bitart ([place] 5/325) 1 tab Q6H PRN ORAL For Pain 06/28/18 19:45 07/05/18 19:44 06/30/18 06:25 Acetazolamide (Diamox 500mg Inj) 250 mg EVERY 12 HOURS IVP 06/30/18 21:00 07/30/18 20:59 07/01/18 09:15 Albuterol/ Ipratropium (Albuterol/ Ipratropium) 3 ml Q4HRT HHN 06/30/18 15:00 07/05/18 14:59 07/01/18 10:33 Aspirin (ASA) 81 mg DAILY ORAL 06/29/18 09:00 07/29/18 08:59 07/01/18 09:15 Atorvastatin Calcium (Lipitor) 20 mg BEDTIME ORAL 06/28/18 21:00 07/28/18 20:59 06/30/18 21:31 Dextrose (Dextrose 50%) 25 ml Q30M PRN IV Hypoglycemia 06/28/18 14:15 07/28/18 14:14 Dextrose (Dextrose 50%) 50 ml Q30M PRN IV Hypoglycemia 06/28/18 14:15 07/28/18 14:14 Furosemide (Lasix) 40 mg EVERY 8 HOURS IV 06/27/18 22:00 07/27/18 21:59 07/01/18 06:15 Heparin Sodium (Porcine) (Heparin 5000 units/ml) 5,000 units EVERY 12 HOURS SUBQ 06/27/18 21:00 07/27/18 20:59 07/01/18 09:17 Insulin Aspart (NovoLOG) BEFORE MEALS AND HS SUBQ 06/28/18 16:30 07/28/18 16:29 06/30/18 21:44 Metoprolol Tartrate (Lopressor) 25 mg EVERY 12 HOURS ORAL 06/28/18 21:00 07/28/18 20:59 06/30/18 21:31 Ondansetron HCl (Zofran) 4 mg Q6H PRN IVP Nausea & Vomiting 06/27/18 18:56 07/27/18 18:55 Pantoprazole (Protonix) 40 mg EVERY 12 HOURS IVP 06/28/18 21:00 07/28/18 20:59 07/01/18 09:15 Polyethylene Glycol (Miralax) 17 gm DAILYPRN PRN ORAL Constipation 06/27/18 18:56 07/27/18 18:55 Promethazine HCl/ Codeine (Phenergan with Codeine) 5 ml Q4H PRN ORAL For Cough 06/28/18 14:15 07/28/18 14:14 Sucralfate (Carafate) 1 gm FOUR TIMES A DAY ORAL 06/28/18 18:00 07/28/18 17:59 07/01/18 09:15 Temazepam (Restoril) 15 mg HSPRN PRN ORAL Insomnia 06/27/18 21:00 07/04/18 20:59 06/28/18 22:39 Vancomycin HCl (Vanco rx to dose) 1 ea DAILY PRN MISC Per rx protocol 06/29/18 10:15 07/29/18 10:14 Vancomycin HCl 1 gm/Dextrose 275 ml @ 183.708 mls/hr Q24H IVPB 06/30/18 11:30 07/05/18 11:29 06/30/18 13:10 Tawanna Watkins MD Jul 01, 2018 11:35
[2018-07-01 12:00] VITALS: BP 121/51
--- NOTE | 2018-07-01 12:49 | Cardiology Report ---
APPROVED REPORT EKG Measurement Heart [id number] Sinus arrhythmia with premature atrial complexes Abnormal ECG
--- NOTE | 2018-07-01 13:01 | Cardiology Report ---
APPROVED REPORT EKG Measurement Heart [id number] [place] [id number] Normal sinus rhythm Nonspecific T wave abnormality Abnormal ECG
--- NOTE | 2018-07-01 14:02 | Consultation ---
History of Present Illness General Date patient seen: Jul 01, 2018 Chief Complaint: Abnormal Labs Present Illness HPI 83 y/o F with hx of CHF, HTN, Dm2, COPD, morbid obesity, GERD, Dementia, CAD/MN presents to ED on 06/28 for 1 week of productive cough, congestion and hypoglycemia down to 30. She was given glucagon by EMS en route. She also reported some burning and pressure in the middle of her chest. Denies fever/chills, nausea/vomiting Allergies: Coded Allergies: No Known Allergies (Unverified , 06/27/18) Medication History Scheduled Insulin Aspart (Novolog), 100 UNIT SQ AC+HS, (Reported) Patient History Healthcare decision maker N Resuscitation status Full Code Advanced Directive on File Patient History Narrative Pmhx: as above Shx: She lives at home. Does not smoke or drink alcohol. Fhx non contributory Review of Systems All Other Systems: negative except mentioned in HPI Physical Exam Physical Exam Narrative GENERAL: The patient is a well-developed and well-nourished female, in no apparent distress. HEENT: Eyes, pupils equal and responsive to light and accommodation. Extraocular movements are intact. NECK: Supple without lymphadenopathy. CHEST: Lungs are clear to auscultation bilaterally without wheezes or rales. CARDIOVASCULAR: Regular rate. S1-S2 are normal without murmurs, rubs, or gallops. ABDOMEN: Soft, nontender, and nondistended. Positive bowel sounds. No evidence of hepatosplenomegaly. Currently, no rebound or guarding noted. EXTREMITIES: Negative for clubbing, cyanosis, or edema. Last 24 Hour Vital Signs Date Time Temp Pulse Resp B/P (MAP) Pulse Ox O2 Delivery O2 Flow Rate FiO2 07/01/18 12:00 55 07/01/18 12:00 97.6 61 18 121/51 (74) 98 07/01/18 10:42 78 16 98 Nasal Cannula 2.0 28 07/01/18 10:34 70 16 97 Nasal Cannula 28.0 07/01/18 09:00 Nasal Cannula 2.0 07/01/18 09:00 61 114/48 07/01/18 08:00 98.0 59 18 114/48 (70) 97 07/01/18 08:00 61 07/01/18 07:22 Nasal Cannula 2.0 28 07/01/18 07:22 Nasal Cannula 2.0 28 07/01/18 07:22 96 Nasal Cannula 2.0 28 07/01/18 07:22 Nasal Cannula 28.0 07/01/18 04:00 99.5 89 18 111/54 (73) 99 07/01/18 04:00 89 07/01/18 03:10 Nasal Cannula 2.0 28 07/01/18 03:10 Nasal Cannula 2.0 28 07/01/18 00:00 64 07/01/18 00:00 99.4 64 18 130/65 (86) 96 06/30/18 23:12 68 18 100 Nasal Cannula 2.0 28 06/30/18 23:00 65 18 99 Nasal Cannula 2.0 28 06/30/18 21:31 66 126/58 06/30/18 21:00 Nasal Cannula 2.0 06/30/18 20:00 59 06/30/18 20:00 99.3 59 18 129/53 (78) 96 06/30/18 19:23 71 18 94 Nasal Cannula 2.0 28 06/30/18 19:13 68 18 94 Nasal Cannula 2.0 28 06/30/18 19:13 94 Nasal Cannula 2.0 28 06/30/18 19:13 Nasal Cannula 2.0 28 06/30/18 16:59 98.3 62 18 122/73 (89) 96 06/30/18 15:36 59 06/30/18 15:16 68 19 97 Nasal Cannula 2.0 28 06/30/18 15:03 60 17 97 Nasal Cannula 3.0 32 Intake and Output 06/30/18 07/01/18 19:00 07:00 Intake Total 720 ml Output Total 1200 ml Balance -480 ml Intake Oral 720 ml Output Urine Total 1200 ml Laboratory Tests Test 07/01/18 06:50 White Blood Count 5.2 K/UL (4.8-10.8) Red Blood Count 3.46 M/UL (4.20-5.40) L Hemoglobin 9.7 G/DL (12.0-16.0) L Hematocrit 31.6 % (37.0-47.0) L Mean Corpuscular Volume 91 FL (80-99) Mean Corpuscular Hemoglobin 27.9 PG (27.0-31.0) Mean Corpuscular Hemoglobin Concent 30.6 G/DL (32.0-36.0) L Red Cell Distribution Width 13.8 % (11.6-14.8) Platelet Count 177 K/UL (150-450) Mean Platelet Volume 8.0 FL (6.5-10.1) Neutrophils (%) (Auto) 54.8 % (45.0-75.0) Lymphocytes (%) (Auto) 24.0 % (20.0-45.0) Monocytes (%) (Auto) 12.2 % (1.0-10.0) H Eosinophils (%) (Auto) 6.8 % (0.0-3.0) H Basophils (%) (Auto) 2.1 % (0.0-2.0) H Erythrocyte Sedimentation Rate 54 MM/HR (0-30) H Sodium Level 143 MMOL/L (136-145) Potassium Level 3.7 MMOL/L (3.5-5.1) Chloride Level 98 MMOL/L (98-107) Carbon Dioxide Level 42 MMOL/L (21-32) *H Anion Gap 1 mmol/L (5-15) L Blood Urea Nitrogen 36 mg/dL (7-18) H Creatinine 1.2 MG/DL (0.55-1.30) Estimat Glomerular Filtration Rate mL/min (>60) Glucose Level 93 MG/DL (74-106) Calcium Level 9.4 MG/DL (8.5-10.1) Phosphorus Level 4.3 MG/DL (2.5-4.9) Magnesium Level 2.0 MG/DL (1.8-2.4) Total Bilirubin 0.5 MG/DL (0.2-1.0) Aspartate Amino Transf (AST/SGOT) 15 U/L (15-37) Alanine Aminotransferase (ALT/SGPT) 26 U/L (12-78) Alkaline Phosphatase 87 U/L (46-116) C-Reactive Protein, Quantitative 0.6 mg/dL (0.00-0.90) Total Protein 6.7 G/DL (6.4-8.2) Albumin 3.0 G/DL (3.4-5.0) L Globulin 3.7 g/dL Albumin/Globulin Ratio 0.8 (1.0-2.7) L Height (Feet): 5 Height (Inches): 7.00 Weight (Pounds): 498 Medications Current Medications Medications (Trade) Dose Ordered Sig/Deidre Route PRN Reason Start Time Stop Time Status Last Admin Dose Admin Acetaminophen (Tylenol) 650 mg Q4H PRN ORAL Fever 06/27/18 18:56 07/27/18 18:55 06/28/18 09:49 Acetaminophen/ Hydrocodone Bitart ([place] 5/325) 1 tab Q6H PRN ORAL For Pain 06/28/18 19:45 07/05/18 19:44 06/30/18 06:25 Acetazolamide (Diamox 500mg Inj) 250 mg EVERY 12 HOURS IVP 06/30/18 21:00 07/30/18 20:59 07/01/18 09:15 Albuterol/ Ipratropium (Albuterol/ Ipratropium) 3 ml Q4HRT HHN 06/30/18 15:00 07/05/18 14:59 07/01/18 10:33 Aspirin (ASA) 81 mg DAILY ORAL 06/29/18 09:00 07/29/18 08:59 07/01/18 09:15 Atorvastatin Calcium (Lipitor) 20 mg BEDTIME ORAL 06/28/18 21:00 07/28/18 20:59 06/30/18 21:31 Dextrose (Dextrose 50%) 25 ml Q30M PRN IV Hypoglycemia 06/28/18 14:15 07/28/18 14:14 Dextrose (Dextrose 50%) 50 ml Q30M PRN IV Hypoglycemia 06/28/18 14:15 07/28/18 14:14 Furosemide (Lasix) 40 mg DAILY IV 07/02/18 09:00 07/27/18 21:59 Heparin Sodium (Porcine) (Heparin 5000 units/ml) 5,000 units EVERY 12 HOURS SUBQ 06/27/18 21:00 07/27/18 20:59 07/01/18 09:17 Insulin Aspart (NovoLOG) BEFORE MEALS AND HS SUBQ 06/28/18 16:30 07/28/18 16:29 07/01/18 12:33 Metoprolol Tartrate (Lopressor) 25 mg EVERY 12 HOURS ORAL 06/28/18 21:00 07/28/18 20:59 06/30/18 21:31 Ondansetron HCl (Zofran) 4 mg Q6H PRN IVP Nausea & Vomiting 06/27/18 18:56 07/27/18 18:55 Pantoprazole (Protonix) 40 mg EVERY 12 HOURS IVP 06/28/18 21:00 07/28/18 20:59 07/01/18 09:15 Polyethylene Glycol (Miralax) 17 gm DAILYPRN PRN ORAL Constipation 06/27/18 18:56 07/27/18 18:55 Promethazine HCl/ Codeine (Phenergan with Codeine) 5 ml Q4H PRN ORAL For Cough 06/28/18 14:15 07/28/18 14:14 Sucralfate (Carafate) 1 gm FOUR TIMES A DAY ORAL 06/28/18 18:00 07/28/18 17:59 07/01/18 12:31 Temazepam (Restoril) 15 mg HSPRN PRN ORAL Insomnia 06/27/18 21:00 07/04/18 20:59 06/28/18 22:39 Assessment/Plan Assessment/Plan Abx: IV Vancomycin 06/29-07/01 Ceftriaxone x1 06/27 Assessment: CHF exacerbation -CXR: Stable enlarged heart size. Increased pulmonary markings can be suggestive of congestion/early edema. Afebrile No leukocytosis -u.a neg Gram positive bacteremia- contaminants' -06/27 Bcx 04/05 S. epi, 04/05 Bacillus sp (not anthracis); 06/29 BCx NTD CHF HTN Dm2 COPD morbid obesity GERD Dementia CAD/MN Plan: -Continue to monitor off abx -f.u cx -Monitor CBC/CMP, temperatures -aspiration precautions Thank you for this consultation. Will continue to follow along with you. Betsy Quintero M.D. Jul 01, 2018 14:02
--- NOTE | 2018-07-01 15:01 | Cardiac Electrophysiology PN ---
Assessment/Plan Assessment/Plan 1. Troponin elevation. 2 out of 4 troponins are negative. The EKG, however, do not show any acute ischemic changes. She is mildly azotemic.No CP. EF 55% The patient is on aspirin and Lopressor and statin. Will schedule for stress test 3. Congestive heart failure with diastolic dysfunction. The patient is on Lasix 40 mg IV daily and Lopressor 4. Obesity. 5. Chronic obstructive pulmonary disease/ PNA. Under management of Dr. Watkins. REYES RN Subjective Subjective Comfortable in NAD Objective Last 24 Hour Vital Signs Date Time Temp Pulse Resp B/P (MAP) Pulse Ox O2 Delivery O2 Flow Rate FiO2 07/01/18 12:00 55 07/01/18 12:00 97.6 61 18 121/51 (74) 98 07/01/18 10:42 78 16 98 Nasal Cannula 2.0 28 07/01/18 10:34 70 16 97 Nasal Cannula 28.0 07/01/18 09:00 Nasal Cannula 2.0 07/01/18 09:00 61 114/48 07/01/18 08:00 98.0 59 18 114/48 (70) 97 07/01/18 08:00 61 07/01/18 07:22 Nasal Cannula 2.0 28 07/01/18 07:22 Nasal Cannula 2.0 28 07/01/18 07:22 96 Nasal Cannula 2.0 28 07/01/18 07:22 Nasal Cannula 28.0 07/01/18 04:00 99.5 89 18 111/54 (73) 99 07/01/18 04:00 89 07/01/18 03:10 Nasal Cannula 2.0 28 07/01/18 03:10 Nasal Cannula 2.0 28 07/01/18 00:00 64 07/01/18 00:00 99.4 64 18 130/65 (86) 96 06/30/18 23:12 68 18 100 Nasal Cannula 2.0 28 06/30/18 23:00 65 18 99 Nasal Cannula 2.0 28 06/30/18 21:31 66 126/58 06/30/18 21:00 Nasal Cannula 2.0 06/30/18 20:00 59 06/30/18 20:00 99.3 59 18 129/53 (78) 96 06/30/18 19:23 71 18 94 Nasal Cannula 2.0 28 06/30/18 19:13 68 18 94 Nasal Cannula 2.0 28 06/30/18 19:13 94 Nasal Cannula 2.0 28 06/30/18 19:13 Nasal Cannula 2.0 28 06/30/18 16:59 98.3 62 18 122/73 (89) 96 06/30/18 15:36 59 06/30/18 15:16 68 19 97 Nasal Cannula 2.0 28 06/30/18 15:03 60 17 97 Nasal Cannula 3.0 32 Intake and Output 06/30/18 07/01/18 19:00 07:00 Intake Total 720 ml Output Total 1200 ml Balance -480 ml Intake Oral 720 ml Output Urine Total 1200 ml Laboratory Tests Test 07/01/18 06:50 White Blood Count 5.2 K/UL (4.8-10.8) Red Blood Count 3.46 M/UL (4.20-5.40) L Hemoglobin 9.7 G/DL (12.0-16.0) L Hematocrit 31.6 % (37.0-47.0) L Mean Corpuscular Volume 91 FL (80-99) Mean Corpuscular Hemoglobin 27.9 PG (27.0-31.0) Mean Corpuscular Hemoglobin Concent 30.6 G/DL (32.0-36.0) L Red Cell Distribution Width 13.8 % (11.6-14.8) Platelet Count 177 K/UL (150-450) Mean Platelet Volume 8.0 FL (6.5-10.1) Neutrophils (%) (Auto) 54.8 % (45.0-75.0) Lymphocytes (%) (Auto) 24.0 % (20.0-45.0) Monocytes (%) (Auto) 12.2 % (1.0-10.0) H Eosinophils (%) (Auto) 6.8 % (0.0-3.0) H Basophils (%) (Auto) 2.1 % (0.0-2.0) H Erythrocyte Sedimentation Rate 54 MM/HR (0-30) H Sodium Level 143 MMOL/L (136-145) Potassium Level 3.7 MMOL/L (3.5-5.1) Chloride Level 98 MMOL/L (98-107) Carbon Dioxide Level 42 MMOL/L (21-32) *H Anion Gap 1 mmol/L (5-15) L Blood Urea Nitrogen 36 mg/dL (7-18) H Creatinine 1.2 MG/DL (0.55-1.30) Estimat Glomerular Filtration Rate mL/min (>60) Glucose Level 93 MG/DL (74-106) Calcium Level 9.4 MG/DL (8.5-10.1) Phosphorus Level 4.3 MG/DL (2.5-4.9) Magnesium Level 2.0 MG/DL (1.8-2.4) Total Bilirubin 0.5 MG/DL (0.2-1.0) Aspartate Amino Transf (AST/SGOT) 15 U/L (15-37) Alanine Aminotransferase (ALT/SGPT) 26 U/L (12-78) Alkaline Phosphatase 87 U/L (46-116) C-Reactive Protein, Quantitative 0.6 mg/dL (0.00-0.90) Total Protein 6.7 G/DL (6.4-8.2) Albumin 3.0 G/DL (3.4-5.0) L Globulin 3.7 g/dL Albumin/Globulin Ratio 0.8 (1.0-2.7) L Microbiology Date/Time Source Procedure Growth Status 06/29/18 11:05 Blood Blood Culture - Preliminary NO GROWTH AFTER 24 HOURS Resulted 06/29/18 10:55 Blood Blood Culture - Preliminary NO GROWTH AFTER 24 HOURS Resulted 06/28/18 22:00 Nasal Nares MRSA Culture - Final NO METHICILLIN RESISTANT STAPH AUREUS... Complete Objective HEAD AND NECK: No JVD. LUNGS: Clear. CARDIOVASCULAR: Regular S1 and S2 with no gallop or murmur. ABDOMEN: Soft. EXTREMITIES: 1+ pitting edema. Alvin Kiran MD Jul 01, 2018 15:01
[2018-07-01] MEDS ORDERED: Lexiscan 0.4mg/5ml syringe IV ONE (15:15)
[2018-07-01 16:00] VITALS: BP 126/54
--- NOTE | 2018-07-01 16:46 | Diagnostic Imaging Report ---
APPROVED REPORT CPT Code: 57844 Present Symptoms Lower Extremity Pain: Bilateral BILATERAL: Imaging reveals a patent deep venous system bilaterally. There is no evidence of thrombus within the common femoral, superficial femoral, popliteal or distal tibial segments. The greater saphenous veins are within normal limits. Doppler indicates normal spontaneous flow within these segments. The mid segment of calf veins were not well visualized.
--- NOTE | 2018-07-01 18:02 | Internal Med Progress Note ---
Subjective Date of Service: Jul 01, 2018 Physician Name Aldair Card Attending Physician Nahun Alfaro MD Current Medications Medications (Trade) Dose Ordered Sig/Deidre Route PRN Reason Start Time Stop Time Status Last Admin Dose Admin Acetaminophen (Tylenol) 650 mg Q4H PRN ORAL Fever 06/27/18 18:56 07/27/18 18:55 06/28/18 09:49 Acetaminophen/ Hydrocodone Bitart ([place] 5/325) 1 tab Q6H PRN ORAL For Pain 06/28/18 19:45 07/05/18 19:44 06/30/18 06:25 Acetazolamide (Diamox 500mg Inj) 250 mg EVERY 12 HOURS IVP 06/30/18 21:00 07/30/18 20:59 07/01/18 09:15 Albuterol/ Ipratropium (Albuterol/ Ipratropium) 3 ml Q4HRT HHN 06/30/18 15:00 07/05/18 14:59 07/01/18 10:33 Aspirin (ASA) 81 mg DAILY ORAL 06/29/18 09:00 07/29/18 08:59 07/01/18 09:15 Atorvastatin Calcium (Lipitor) 20 mg BEDTIME ORAL 06/28/18 21:00 07/28/18 20:59 06/30/18 21:31 Dextrose (Dextrose 50%) 25 ml Q30M PRN IV Hypoglycemia 06/28/18 14:15 07/28/18 14:14 Dextrose (Dextrose 50%) 50 ml Q30M PRN IV Hypoglycemia 06/28/18 14:15 07/28/18 14:14 Furosemide (Lasix) 40 mg DAILY IV 07/02/18 09:00 07/27/18 21:59 Heparin Sodium (Porcine) (Heparin 5000 units/ml) 5,000 units EVERY 12 HOURS SUBQ 06/27/18 21:00 07/27/18 20:59 07/01/18 09:17 Insulin Aspart (NovoLOG) BEFORE MEALS AND HS SUBQ 06/28/18 16:30 07/28/18 16:29 07/01/18 17:14 Metoprolol Tartrate (Lopressor) 25 mg EVERY 12 HOURS ORAL 06/28/18 21:00 07/28/18 20:59 06/30/18 21:31 Ondansetron HCl (Zofran) 4 mg Q6H PRN IVP Nausea & Vomiting 06/27/18 18:56 07/27/18 18:55 Pantoprazole (Protonix) 40 mg Q12HR ORAL 07/01/18 21:00 07/31/18 20:59 Polyethylene Glycol (Miralax) 17 gm DAILYPRN PRN ORAL Constipation 06/27/18 18:56 07/27/18 18:55 Promethazine HCl/ Codeine (Phenergan with Codeine) 5 ml Q4H PRN ORAL For Cough 06/28/18 14:15 07/28/18 14:14 Sucralfate (Carafate) 1 gm FOUR TIMES A DAY ORAL 06/28/18 18:00 07/28/18 17:59 07/01/18 17:13 Temazepam (Restoril) 15 mg HSPRN PRN ORAL Insomnia 06/27/18 21:00 07/04/18 20:59 06/28/18 22:39 Allergies: Coded Allergies: No Known Allergies (Unverified , 06/27/18) ROS Limited/Unobtainable: No Constitutional: Reports: no symptoms HEENT: Reports: no symptoms Cardiovascular: Reports: no symptoms Respiratory: Reports: shortness of breath Gastrointestinal/Abdominal: Reports: no symptoms Genitourinary: Reports: no symptoms Neurologic/Psychiatric: Reports: no symptoms Subjective 83 YO F with diabetes II admitted with hypoglycemia. Cover for Int Johnny-Dr Alfaro. Objective Last Vital Signs Date Time Temp Pulse Resp B/P (MAP) Pulse Ox O2 Delivery O2 Flow Rate FiO2 07/01/18 16:00 68 07/01/18 16:00 98.5 19 126/54 (78) 97 07/01/18 15:29 Nasal Cannula 28.0 07/01/18 15:29 28 Laboratory Tests Test 07/01/18 06:50 White Blood Count 5.2 K/UL (4.8-10.8) Red Blood Count 3.46 M/UL (4.20-5.40) L Hemoglobin 9.7 G/DL (12.0-16.0) L Hematocrit 31.6 % (37.0-47.0) L Mean Corpuscular Volume 91 FL (80-99) Mean Corpuscular Hemoglobin 27.9 PG (27.0-31.0) Mean Corpuscular Hemoglobin Concent 30.6 G/DL (32.0-36.0) L Red Cell Distribution Width 13.8 % (11.6-14.8) Platelet Count 177 K/UL (150-450) Mean Platelet Volume 8.0 FL (6.5-10.1) Neutrophils (%) (Auto) 54.8 % (45.0-75.0) Lymphocytes (%) (Auto) 24.0 % (20.0-45.0) Monocytes (%) (Auto) 12.2 % (1.0-10.0) H Eosinophils (%) (Auto) 6.8 % (0.0-3.0) H Basophils (%) (Auto) 2.1 % (0.0-2.0) H Erythrocyte Sedimentation Rate 54 MM/HR (0-30) H Sodium Level 143 MMOL/L (136-145) Potassium Level 3.7 MMOL/L (3.5-5.1) Chloride Level 98 MMOL/L (98-107) Carbon Dioxide Level 42 MMOL/L (21-32) *H Anion Gap 1 mmol/L (5-15) L Blood Urea Nitrogen 36 mg/dL (7-18) H Creatinine 1.2 MG/DL (0.55-1.30) Estimat Glomerular Filtration Rate mL/min (>60) Glucose Level 93 MG/DL (74-106) Calcium Level 9.4 MG/DL (8.5-10.1) Phosphorus Level 4.3 MG/DL (2.5-4.9) Magnesium Level 2.0 MG/DL (1.8-2.4) Total Bilirubin 0.5 MG/DL (0.2-1.0) Aspartate Amino Transf (AST/SGOT) 15 U/L (15-37) Alanine Aminotransferase (ALT/SGPT) 26 U/L (12-78) Alkaline Phosphatase 87 U/L (46-116) C-Reactive Protein, Quantitative 0.6 mg/dL (0.00-0.90) Total Protein 6.7 G/DL (6.4-8.2) Albumin 3.0 G/DL (3.4-5.0) L Globulin 3.7 g/dL Albumin/Globulin Ratio 0.8 (1.0-2.7) L Microbiology Date/Time Source Procedure Growth Status 06/29/18 11:05 Blood Blood Culture - Preliminary NO GROWTH AFTER 24 HOURS Resulted 06/29/18 10:55 Blood Blood Culture - Preliminary NO GROWTH AFTER 24 HOURS Resulted 06/28/18 22:00 Nasal Nares MRSA Culture - Final NO METHICILLIN RESISTANT STAPH AUREUS... Complete Intake and Output 06/30/18 07/01/18 19:00 07:00 Intake Total 720 ml Output Total 1200 ml Balance -480 ml Intake Oral 720 ml Output Urine Total 1200 ml Objective PHYSICAL EXAMINATION: GENERAL: The patient is a well-developed and well-nourished female, in no apparent distress. HEENT: Eyes, pupils equal and responsive to light and accommodation. Extraocular movements are intact. NECK: Supple without lymphadenopathy. CHEST: Lungs are clear to auscultation bilaterally without wheezes or rales. CARDIOVASCULAR: Regular rate. S1-S2 are normal without murmurs, rubs, or gallops. ABDOMEN: Soft, nontender, and nondistended. Positive bowel sounds. No evidence of hepatosplenomegaly. Currently, no rebound or guarding noted. EXTREMITIES: Negative for clubbing, cyanosis, or edema. RECTAL/GENITAL: Refused. NEUROLOGIC: Cranial nerves II through XII are grossly intact without focal deficits. Motor strength is 5/5 bilaterally. Deep tendon reflexes are 2+ plantar. Assessment/Plan Problem List: (1) GERD (gastroesophageal reflux disease) Assessment & Plan: Continue protonix (2) Dementia (3) Hypoglycemia Assessment & Plan: Improving. Continue novolog sliding scale (4) Diabetes mellitus (5) HTN (hypertension) Assessment & Plan: Continue lopressor (6) CHF exacerbation (7) COPD (chronic obstructive pulmonary disease) (8) COPD exacerbation Assessment & Plan: See pulmonary consult note (9) Bacteremia Assessment & Plan: 04/03 bottles gram neg bacillus. Monitor off antibiotic per Aldair Sosa MD Jul 01, 2018 18:02
--- NOTE | 2018-07-01 19:45 | NUR ---
NURSE NOTES: Pt received from DARWIN Quintero alert and oriented x4 with no s/s of acute distress. Pt is on 2L NC, no acute s/s of SOB. IV site asymptomatic and patent. Bed in lowest position, call light and belongings within reach.
[2018-07-01 20:00] VITALS: BP 122/50
[2018-07-01] MEDS: Atorvastatin 20mg tab ORAL SCH (20:53)
[2018-07-02] VITALS: BP 135/64
[2018-07-02] MEDS: Albuterol/Ipratropium 3ml neb HHN SCH ×6 (03:40→23:39)
[2018-07-02 04:00] VITALS: BP 132/68
[2018-07-02] MEDS: NovoLOG Insulin Flexpen SUBQ SCH ×4 (06:30→21:00)
[2018-07-02 07:12] LABS: BASOPHILS % (AUTO) 2.6 % (0.0-2.0); EOSINOPHILS % (AUTO) 5.8 % (0.0-3.0); HEMATOCRIT 31.9 % (37.0-47.0); HEMOGLOBIN 9.6 G/DL (12.0-16.0); LYMPHOCYTES % (AUTO) 22.2 % (20.0-45.0); MEAN CORPUSCULAR VOLUME 91 FL (80-99); NEUTROPHILS % (AUTO) 59.5 % (45.0-75.0); PLATELET COUNT 180 K/UL (150-450); RED BLOOD COUNT 3.48 M/UL (4.20-5.40); RED CELL DISTRIBUTION WIDTH 13.8 % (11.6-14.8); WHITE BLOOD COUNT 6.1 K/UL (4.8-10.8)
[2018-07-02 07:30] LABS: ALANINE AMINOTRANSFERASE 24 U/L (12-78); ALBUMIN 2.9 G/DL (3.4-5.0); ALBUMIN/GLOBULIN RATIO 0.8 (1.0-2.7); ALKALINE PHOSPHATASE 81 U/L (46-116); ANION GAP 0 mmol/L (5-15); ASPARTATE AMINO TRANSFERASE 14 U/L (15-37); BILIRUBIN,TOTAL 0.4 MG/DL (0.2-1.0); BLOOD UREA NITROGEN 35 mg/dL (7-18); CALCIUM 9.4 MG/DL (8.5-10.1); CHLORIDE 101 MMOL/L (98-107); CREATININE 1.2 MG/DL (0.55-1.30); POTASSIUM 3.8 MMOL/L (3.5-5.1); SODIUM 142 MMOL/L (136-145)
[2018-07-02 07:58] LABS: CARBON DIOXIDE 41 MMOL/L (21-32)
[2018-07-02 08:00] VITALS: BP 116/47
--- NOTE | 2018-07-02 08:24 | NUR ---
NURSE NOTES: recvd pt. Pt is awake and alert AOX4, pt is on room air with no sign of sob or resp distress. Pt denies pain. Pt has schaeffer cath for retention, draining to gravity.Pt has been NPO awaiting stress test, pt has consented to sign consent without daughter present. Bed in lowest position, will continue with plan of care.
--- NOTE | 2018-07-02 08:24 | NUR ---
CASE MANAGEMENT:REVIEW 07/02/18 SI: ELEVATED TROPONIN. BACTEREMIA. CHF. COPD. HYPOGLYCEMIA 98.0 58 16 132/68 94% ON 2L/NC CO2+41 GLUCOSE+127 IS: IV LASIX QD PROTONIX PO Q12 IV DIAMOX Q12 DUONEB HHN Q4HRS RTC ASA PO QD LOPRESSOR PO Q12 carafate po qid HEPARIN SQ Q12 SS INSULIN AC+HS : TELEMETRY STATUS PLAN: STRESS TEST
--- NOTE | 2018-07-02 08:32 | NUR ---
RADIOLOGY DEPT., CHEST X-RAY DONE.-P.DYE
[2018-07-02] MEDS: Metoprolol 25mg tab ORAL SCH ×2 (09:00→21:00)
[2018-07-02] MEDS: Aspirin Baby 81mg ORAL SCH (09:00)
[2018-07-02] MEDS: Sucralfate 1gm tab ORAL SCH ×4 (09:47→21:06)
[2018-07-02] MEDS: acetaZOLAMIDE 500mg Inj IVP SCH ×2 (09:48→22:23)
[2018-07-02] MEDS: Heparin 5000 units/ml inj SUBQ SCH ×2 (09:49→21:07)
--- NOTE | 2018-07-02 09:58 | Diagnostic Imaging Report ---
Indication: Shortness of breath Technique: One view of the chest Comparison: 06/29/2018 Findings: The heart is enlarged. There is bilateral mild interstitial congestion again demonstrated, unchanged. No focal airspace consolidation or effusions. Linear opacity in the right perihilar region may reflect atelectasis, scarring, or small amount of fluid/thickening of the minor fissure. Findings are unchanged Impression: Unchanged, over 3 days, findings as above.
--- NOTE | 2018-07-02 10:04 | Cardiac Electrophysiology PN ---
Assessment/Plan Assessment/Plan 1. Troponin elevation. 2 out of 4 troponins are negative. The EKG, however, do not show any acute ischemic changes. She is mildly azotemic.No CP. EF 55% The patient is on aspirin and Lopressor and statin. Awaiting stress test today 3. Congestive heart failure with diastolic dysfunction. On Lasix 40 mg IV daily and Lopressor 4. Obesity. 5. Chronic obstructive pulmonary disease/ PNA. Under management of Dr. Watkins. REYES RN Subjective Subjective Comfortable in NAD. Awaiting nuclear stress test today Objective Last 24 Hour Vital Signs Date Time Temp Pulse Resp B/P (MAP) Pulse Ox O2 Delivery O2 Flow Rate FiO2 07/02/18 09:00 60 116/47 07/02/18 08:00 98.0 60 20 116/47 (70) 100 07/02/18 07:14 70 16 98 Nasal Cannula 2.0 28 07/02/18 07:04 94 Nasal Cannula 2.0 28 07/02/18 07:04 Nasal Cannula 2.0 28 07/02/18 07:04 58 16 94 Nasal Cannula 2.0 28 07/02/18 04:00 98.0 79 20 132/68 (89) 98 07/02/18 04:00 64 07/02/18 03:50 64 16 98 Nasal Cannula 2.0 28 07/02/18 03:40 65 16 94 Nasal Cannula 2.0 28 07/02/18 00:00 97.6 76 20 135/64 (87) 99 07/02/18 00:00 60 07/01/18 23:27 61 16 99 Nasal Cannula 2.0 28 07/01/18 23:17 63 16 95 Nasal Cannula 2.0 28 07/01/18 21:00 67 07/01/18 21:00 Nasal Cannula 2.0 07/01/18 20:55 73 122/50 07/01/18 20:00 98.0 73 20 122/50 (74) 93 07/01/18 19:49 68 16 99 Nasal Cannula 2.0 28 07/01/18 19:39 Nasal Cannula 2.0 28 07/01/18 19:39 68 18 95 Nasal Cannula 2.0 28 07/01/18 19:39 95 Nasal Cannula 2.0 28 07/01/18 16:00 68 07/01/18 16:00 98.5 72 19 126/54 (78) 97 07/01/18 15:29 Nasal Cannula 28.0 07/01/18 15:29 Nasal Cannula 2.0 28 07/01/18 12:00 55 07/01/18 12:00 97.6 61 18 121/51 (74) 98 07/01/18 10:42 78 16 98 Nasal Cannula 2.0 28 07/01/18 10:34 70 16 97 Nasal Cannula 28.0 Intake and Output 07/01/18 07/02/18 19:00 07:00 Intake Total 340 ml Output Total 1600 ml Balance 340 ml -1600 ml Intake Oral 340 ml Output Urine Total 1600 ml Laboratory Tests Test 07/02/18 05:44 White Blood Count 6.1 K/UL (4.8-10.8) Red Blood Count 3.48 M/UL (4.20-5.40) L Hemoglobin 9.6 G/DL (12.0-16.0) L Hematocrit 31.9 % (37.0-47.0) L Mean Corpuscular Volume 91 FL (80-99) Mean Corpuscular Hemoglobin 27.6 PG (27.0-31.0) Mean Corpuscular Hemoglobin Concent 30.2 G/DL (32.0-36.0) L Red Cell Distribution Width 13.8 % (11.6-14.8) Platelet Count 180 K/UL (150-450) Mean Platelet Volume 7.9 FL (6.5-10.1) Neutrophils (%) (Auto) 59.5 % (45.0-75.0) Lymphocytes (%) (Auto) 22.2 % (20.0-45.0) Monocytes (%) (Auto) 10.0 % (1.0-10.0) Eosinophils (%) (Auto) 5.8 % (0.0-3.0) H Basophils (%) (Auto) 2.6 % (0.0-2.0) H Sodium Level 142 MMOL/L (136-145) Potassium Level 3.8 MMOL/L (3.5-5.1) Chloride Level 101 MMOL/L (98-107) Carbon Dioxide Level 41 MMOL/L (21-32) *H Anion Gap 0 mmol/L (5-15) L Blood Urea Nitrogen 35 mg/dL (7-18) H Creatinine 1.2 MG/DL (0.55-1.30) Estimat Glomerular Filtration Rate mL/min (>60) Glucose Level 127 MG/DL (74-106) H Calcium Level 9.4 MG/DL (8.5-10.1) Total Bilirubin 0.4 MG/DL (0.2-1.0) Aspartate Amino Transf (AST/SGOT) 14 U/L (15-37) L Alanine Aminotransferase (ALT/SGPT) 24 U/L (12-78) Alkaline Phosphatase 81 U/L (46-116) Pro-B-Type Natriuretic Peptide 654 pg/mL (0-125) H Total Protein 6.7 G/DL (6.4-8.2) Albumin 2.9 G/DL (3.4-5.0) L Globulin 3.8 g/dL Albumin/Globulin Ratio 0.8 (1.0-2.7) L Microbiology Date/Time Source Procedure Growth Status 06/29/18 11:05 Blood Blood Culture - Preliminary NO GROWTH AFTER 48 HOURS Resulted 06/29/18 10:55 Blood Blood Culture - Preliminary NO GROWTH AFTER 48 HOURS Resulted Objective HEAD AND NECK: No JVD. LUNGS: Clear. CARDIOVASCULAR: Regular S1 and S2 with no gallop or murmur. ABDOMEN: Soft. EXTREMITIES: 1+ pitting edema. Alvin Kiran MD Jul 02, 2018 10:04
--- NOTE | 2018-07-02 11:55 | Pulmonology Progress Note ---
Assessment/Plan Problems: (1) Acute respiratory failure (2) Bacteremia (3) Pulmonary edema (4) COPD (chronic obstructive pulmonary disease) (5) Unable to ambulate (6) HTN (hypertension) (7) Morbid obesity (8) Diabetes mellitus Assessment/Plan 8600cc negative fluid balance add Diamox b/o increasing HCo2 stress test in process watch carefully, bun/creatinine, decrease lasix 40 to Q daily Echo noted, diastolic dysfunction decrease lasix dose, watch bun/creatinine titrate cardiac meds pt/ot on Aspirin and beta blockers keep in teli because of positive troponin and potential stress test Subjective ROS Limited/Unobtainable: No Constitutional: Reports: no symptoms Allergies: Coded Allergies: No Known Allergies (Unverified , 06/27/18) Objective Last 24 Hour Vital Signs Date Time Temp Pulse Resp B/P (MAP) Pulse Ox O2 Delivery O2 Flow Rate FiO2 07/02/18 10:25 80 16 99 Nasal Cannula 2.0 28 07/02/18 10:18 66 16 95 Nasal Cannula 2.0 28 07/02/18 09:00 Nasal Cannula 2.0 07/02/18 09:00 60 116/47 07/02/18 08:00 98.0 60 20 116/47 (70) 100 07/02/18 08:00 59 07/02/18 07:14 70 16 98 Nasal Cannula 2.0 28 07/02/18 07:04 94 Nasal Cannula 2.0 28 07/02/18 07:04 Nasal Cannula 2.0 28 07/02/18 07:04 58 16 94 Nasal Cannula 2.0 28 07/02/18 04:00 98.0 79 20 132/68 (89) 98 07/02/18 04:00 64 07/02/18 03:50 64 16 98 Nasal Cannula 2.0 28 07/02/18 03:40 65 16 94 Nasal Cannula 2.0 28 07/02/18 00:00 97.6 76 20 135/64 (87) 99 07/02/18 00:00 60 07/01/18 23:27 61 16 99 Nasal Cannula 2.0 28 07/01/18 23:17 63 16 95 Nasal Cannula 2.0 28 07/01/18 21:00 67 07/01/18 21:00 Nasal Cannula 2.0 07/01/18 20:55 73 122/50 07/01/18 20:00 98.0 73 20 122/50 (74) 93 07/01/18 19:49 68 16 99 Nasal Cannula 2.0 28 07/01/18 19:39 Nasal Cannula 2.0 28 07/01/18 19:39 68 18 95 Nasal Cannula 2.0 28 07/01/18 19:39 95 Nasal Cannula 2.0 28 07/01/18 16:00 68 07/01/18 16:00 98.5 72 19 126/54 (78) 97 07/01/18 15:29 Nasal Cannula 28.0 07/01/18 15:29 Nasal Cannula 2.0 28 07/01/18 12:00 55 07/01/18 12:00 97.6 61 18 121/51 (74) 98 Intake and Output 07/01/18 07/02/18 19:00 07:00 Intake Total 340 ml Output Total 1600 ml Balance 340 ml -1600 ml Intake Oral 340 ml Output Urine Total 1600 ml Objective General Appearance: WD/WN, no apparent distress Lines, tubes and drains: peripheral HEENT: normocephalic, atraumatic Neck: non-tender, normal alignment Respiratory/Chest: chest wall non-tender, lungs clear Breasts: no masses Cardiovascular/Chest: normal peripheral pulses Abdomen: normal bowel sounds, non tender Extremities: normal range of motion, + edema Skin Exam: normal pigmentation Laboratory Tests 07/02/18 05:44: White Blood Count 6.1, Red Blood Count 3.48L, Hemoglobin 9.6L, Hematocrit 31.9L , Mean Corpuscular Volume 91, Mean Corpuscular Hemoglobin 27.6, Mean Corpuscular Hemoglobin Concent 30.2L, Red Cell Distribution Width 13.8, Platelet Count 180, Mean Platelet Volume 7.9, Neutrophils (%) (Auto) 59.5, Lymphocytes (%) (Auto) 22.2, Monocytes (%) (Auto) 10.0, Eosinophils (%) (Auto) 5.8H, Basophils (%) (Auto) 2.6H, Sodium Level 142, Potassium Level 3.8, Chloride Level 101, Carbon Dioxide Level 41*H, Anion Gap 0L, Blood Urea Nitrogen 35H, Creatinine 1.2, Estimat Glomerular Filtration Rate , Glucose Level 127H, Calcium Level 9.4, Total Bilirubin 0.4, Aspartate Amino Transf (AST/ SGOT) 14L, Alanine Aminotransferase (ALT/SGPT) 24, Alkaline Phosphatase 81, Pro- B-Type Natriuretic Peptide 654H, Total Protein 6.7, Albumin 2.9L, Globulin 3.8, Albumin/Globulin Ratio 0.8L 07/02/18 10:20: Vancomycin Level Trough 2.6L Current Medications Medications (Trade) Dose Ordered Sig/Deidre Route PRN Reason Start Time Stop Time Status Last Admin Dose Admin Acetaminophen (Tylenol) 650 mg Q4H PRN ORAL Fever 06/27/18 18:56 07/27/18 18:55 06/28/18 09:49 Acetaminophen/ Hydrocodone Bitart ([place] 5/325) 1 tab Q6H PRN ORAL For Pain 06/28/18 19:45 07/05/18 19:44 06/30/18 06:25 Acetazolamide (Diamox 500mg Inj) 250 mg EVERY 12 HOURS IVP 06/30/18 21:00 07/30/18 20:59 07/02/18 09:48 Albuterol/ Ipratropium (Albuterol/ Ipratropium) 3 ml Q4HRT HHN 06/30/18 15:00 07/05/18 14:59 07/02/18 10:18 Aspirin (ASA) 81 mg DAILY ORAL 06/29/18 09:00 07/29/18 08:59 07/01/18 09:15 Atorvastatin Calcium (Lipitor) 20 mg BEDTIME ORAL 06/28/18 21:00 07/28/18 20:59 07/01/18 20:53 Dextrose (Dextrose 50%) 25 ml Q30M PRN IV Hypoglycemia 06/28/18 14:15 07/28/18 14:14 Dextrose (Dextrose 50%) 50 ml Q30M PRN IV Hypoglycemia 06/28/18 14:15 07/28/18 14:14 Furosemide (Lasix) 40 mg DAILY IV 07/02/18 09:00 07/27/18 21:59 07/02/18 09:47 Heparin Sodium (Porcine) (Heparin 5000 units/ml) 5,000 units EVERY 12 HOURS SUBQ 06/27/18 21:00 07/27/18 20:59 07/02/18 09:49 Insulin Aspart (NovoLOG) BEFORE MEALS AND HS SUBQ 06/28/18 16:30 07/28/18 16:29 07/01/18 20:58 Metoprolol Tartrate (Lopressor) 25 mg EVERY 12 HOURS ORAL 06/28/18 21:00 07/28/18 20:59 07/01/18 20:55 Ondansetron HCl (Zofran) 4 mg Q6H PRN IVP Nausea & Vomiting 06/27/18 18:56 07/27/18 18:55 Pantoprazole (Protonix) 40 mg Q12HR ORAL 07/01/18 21:00 07/31/18 20:59 07/02/18 09:47 Polyethylene Glycol (Miralax) 17 gm DAILYPRN PRN ORAL Constipation 06/27/18 18:56 07/27/18 18:55 Promethazine HCl/ Codeine (Phenergan with Codeine) 5 ml Q4H PRN ORAL For Cough 06/28/18 14:15 07/28/18 14:14 Sucralfate (Carafate) 1 gm FOUR TIMES A DAY ORAL 06/28/18 18:00 07/28/18 17:59 07/02/18 09:47 Temazepam (Restoril) 15 mg HSPRN PRN ORAL Insomnia 06/27/18 21:00 07/04/18 20:59 06/28/18 22:39 Tawanna Watkins MD Jul 02, 2018 11:55
[2018-07-02] MEDS ORDERED: Lexiscan 0.4mg/5ml syringe IV PRN (13:00)
--- NOTE | 2018-07-02 14:55 | NUR ---
RD ASSESSMENT & RECOMMENDATIONS SEE CARE ACTIVITY FOR COMPLETE ASSESSMENT DAILY ESTIMATED NEEDS: Needs based on Pulmonary, CHF, DM, obesity/ 71kg abw 25-28 kcals/kg 1270-6965 total kcals 1-1.3 g protein/kg 71-92 g total protein 20-22 mL/kg 4637-8426 total fluid mLs NUTRITION DIAGNOSIS: Decreased sodium intake needs R/T cardiac hx as evidenced by CHF dx, on lasix. CURRENT DIET:[facility] MED PO DIET RECOMMENDATIONS: [facility] Med + add LOW NA/ texture as tolerated ADDITIONAL RECOMMENDATIONS: * Daily wt monitoring on calibrated bedscale wt- CHF dx * Monitor lytes closely on lasix, replete as needed
--- NOTE | 2018-07-02 15:43 | Diagnostic Imaging Report ---
Indications: Chest pain Technique: Single day single isotope protocol utilized. Initially, resting images obtained using IV administration 10.4 millicuries 99M technetium Myoview. Subsequently, patient underwent lexiscan stress testing. See cardiology report for details. During Lexiscan infusion, IV administration 29.9 mCi 99 M technetium Myoview. SPECT and planar images obtained. SPECT images gated to 8 phases of the cardiac cycle were also obtained, and reformatted into cine images for evaluation of ejection fraction. Comparison: Findings: Per cardiology report, patient experienced no symptoms. Per cardiology report, resting EKG demonstrates normal sinus rhythm. Presence or absence of symptoms during infusion is not described. Imaging demonstrates nonspecific heterogeneous post stress perfusion without definite fixed or reversible post stress perfusion defects.. Calculated post stress ejection fraction 68%. No significant wall motion abnormality demonstrated Impression: Nonischemic clinical response to pharmacologic stress, per cardiology report Nonischemic electrocardiographic response to pharmacologic stress, per cardiology report No imaging findings to suggest ischemia, at level of stress achieved. Calculated post stress ejection fraction 68%
--- NOTE | 2018-07-02 15:59 | Infectious Diseases Prog Note ---
Assessment/Plan Assessment/Plan Abx: IV Vancomycin 06/29-07/01 Ceftriaxone x1 06/27 Assessment: CHF exacerbation -CXR: Stable enlarged heart size. Increased pulmonary markings can be suggestive of congestion/early edema. Afebrile No leukocytosis -u.a neg Gram positive bacteremia- contaminants' -06/27 Bcx 04/05 S. epi, 04/05 Bacillus sp (not anthracis); 06/29 BCx NTD CHF HTN Dm2 COPD morbid obesity GERD Dementia CAD/[place] Plan: -Continue to monitor off abx -f.u cx -Monitor CBC/CMP, temperatures -aspiration precautions Thank you for this consultation. Will continue to follow along with you. Subjective Allergies: Coded Allergies: No Known Allergies (Unverified , 06/27/18) Subjective afebrile no leukocytosis off abx Objective Vital Signs Last 24 Hour Vital Signs Date Time Temp Pulse Resp B/P (MAP) Pulse Ox O2 Delivery O2 Flow Rate FiO2 07/02/18 15: Nasal Cannula 2.0 28 07/02/18 15:19 Nasal Cannula 2.0 28 07/02/18 12:00 63 07/02/18 10:25 80 16 99 Nasal Cannula 2.0 28 07/02/18 10:18 66 16 95 Nasal Cannula 2.0 28 07/02/18 09:00 Nasal Cannula 2.0 07/02/18 09:00 60 116/47 07/02/18 08:00 98.0 60 20 116/47 (70) 100 07/02/18 08:00 59 07/02/18 07:14 70 16 98 Nasal Cannula 2.0 28 07/02/18 07:04 94 Nasal Cannula 2.0 28 07/02/18 07:04 Nasal Cannula 2.0 28 07/02/18 07:04 58 16 94 Nasal Cannula 2.0 28 07/02/18 04:00 98.0 79 20 132/68 (89) 98 07/02/18 04:00 64 07/02/18 03:50 64 16 98 Nasal Cannula 2.0 28 07/02/18 03:40 65 16 94 Nasal Cannula 2.0 28 07/02/18 00:00 97.6 76 20 135/64 (87) 99 07/02/18 00:00 60 07/01/18 23:27 61 16 99 Nasal Cannula 2.0 28 07/01/18 23:17 63 16 95 Nasal Cannula 2.0 28 07/01/18 21:00 67 07/01/18 21:00 Nasal Cannula 2.0 07/01/18 20:55 73 122/50 07/01/18 20:00 98.0 73 20 122/50 (74) 93 07/01/18 19:49 68 16 99 Nasal Cannula 2.0 28 07/01/18 19:39 Nasal Cannula 2.0 28 07/01/18 19:39 68 18 95 Nasal Cannula 2.0 28 07/01/18 19:39 95 Nasal Cannula 2.0 28 07/01/18 16:00 68 07/01/18 16:00 98.5 72 19 126/54 (78) 97 Height (Feet): 5 Height (Inches): 7.00 Weight (Pounds): 221 Objective GENERAL: The patient is a well-developed and well-nourished female, in no apparent distress. HEENT: Eyes, pupils equal and responsive to light and accommodation. Extraocular movements are intact. NECK: Supple without lymphadenopathy. CHEST: Lungs are clear to auscultation bilaterally without wheezes or rales. CARDIOVASCULAR: Regular rate. S1-S2 are normal without murmurs, rubs, or gallops. ABDOMEN: Soft, nontender, and nondistended. Positive bowel sounds. No evidence of hepatosplenomegaly. Currently, no rebound or guarding noted. EXTREMITIES: Negative for clubbing, cyanosis, or edema. Laboratory Tests Test 07/02/18 05:44 07/02/18 10:20 White Blood Count 6.1 K/UL (4.8-10.8) Red Blood Count 3.48 M/UL (4.20-5.40) L Hemoglobin 9.6 G/DL (12.0-16.0) L Hematocrit 31.9 % (37.0-47.0) L Mean Corpuscular Volume 91 FL (80-99) Mean Corpuscular Hemoglobin 27.6 PG (27.0-31.0) Mean Corpuscular Hemoglobin Concent 30.2 G/DL (32.0-36.0) L Red Cell Distribution Width 13.8 % (11.6-14.8) Platelet Count 180 K/UL (150-450) Mean Platelet Volume 7.9 FL (6.5-10.1) Neutrophils (%) (Auto) 59.5 % (45.0-75.0) Lymphocytes (%) (Auto) 22.2 % (20.0-45.0) Monocytes (%) (Auto) 10.0 % (1.0-10.0) Eosinophils (%) (Auto) 5.8 % (0.0-3.0) H Basophils (%) (Auto) 2.6 % (0.0-2.0) H Sodium Level 142 MMOL/L (136-145) Potassium Level 3.8 MMOL/L (3.5-5.1) Chloride Level 101 MMOL/L (98-107) Carbon Dioxide Level 41 MMOL/L (21-32) *H Anion Gap 0 mmol/L (5-15) L Blood Urea Nitrogen 35 mg/dL (7-18) H Creatinine 1.2 MG/DL (0.55-1.30) Estimat Glomerular Filtration Rate mL/min (>60) Glucose Level 127 MG/DL (74-106) H Calcium Level 9.4 MG/DL (8.5-10.1) Total Bilirubin 0.4 MG/DL (0.2-1.0) Aspartate Amino Transf (AST/SGOT) 14 U/L (15-37) L Alanine Aminotransferase (ALT/SGPT) 24 U/L (12-78) Alkaline Phosphatase 81 U/L (46-116) Pro-B-Type Natriuretic Peptide 654 pg/mL (0-125) H Total Protein 6.7 G/DL (6.4-8.2) Albumin 2.9 G/DL (3.4-5.0) L Globulin 3.8 g/dL Albumin/Globulin Ratio 0.8 (1.0-2.7) L Vancomycin Level Trough 2.6 ug/mL (5.0-12.0) L Current Medications Medications (Trade) Dose Ordered Sig/Deidre Route PRN Reason Start Time Stop Time Status Last Admin Dose Admin Acetaminophen (Tylenol) 650 mg Q4H PRN ORAL Fever 06/27/18 18:56 07/27/18 18:55 06/28/18 09:49 Acetaminophen/ Hydrocodone Bitart ([place] 5/325) 1 tab Q6H PRN ORAL For Pain 06/28/18 19:45 07/05/18 19:44 06/30/18 06:25 Acetazolamide (Diamox 500mg Inj) 250 mg EVERY 12 HOURS IVP 06/30/18 21:00 07/30/18 20:59 07/02/18 09:48 Albuterol/ Ipratropium (Albuterol/ Ipratropium) 3 ml Q4HRT HHN 06/30/18 15:00 07/05/18 14:59 07/02/18 10:18 Aspirin (ASA) 81 mg DAILY ORAL 06/29/18 09:00 07/29/18 08:59 07/01/18 09:15 Atorvastatin Calcium (Lipitor) 20 mg BEDTIME ORAL 06/28/18 21:00 07/28/18 20:59 07/01/18 20:53 Dextrose (Dextrose 50%) 25 ml Q30M PRN IV Hypoglycemia 06/28/18 14:15 07/28/18 14:14 Dextrose (Dextrose 50%) 50 ml Q30M PRN IV Hypoglycemia 06/28/18 14:15 07/28/18 14:14 Furosemide (Lasix) 40 mg DAILY IV 07/02/18 09:00 07/27/18 21:59 07/02/18 09:47 Heparin Sodium (Porcine) (Heparin 5000 units/ml) 5,000 units EVERY 12 HOURS SUBQ 06/27/18 21:00 07/27/18 20:59 07/02/18 09:49 Insulin Aspart (NovoLOG) BEFORE MEALS AND HS SUBQ 06/28/18 16:30 07/28/18 16:29 07/01/18 20:58 Metoprolol Tartrate (Lopressor) 25 mg EVERY 12 HOURS ORAL 06/28/18 21:00 07/28/18 20:59 07/01/18 20:55 Ondansetron HCl (Zofran) 4 mg Q6H PRN IVP Nausea & Vomiting 06/27/18 18:56 07/27/18 18:55 Pantoprazole (Protonix) 40 mg Q12HR ORAL 07/01/18 21:00 07/31/18 20:59 07/02/18 09:47 Polyethylene Glycol (Miralax) 17 gm DAILYPRN PRN ORAL Constipation 06/27/18 18:56 07/27/18 18:55 Promethazine HCl/ Codeine (Phenergan with Codeine) 5 ml Q4H PRN ORAL For Cough 06/28/18 14:15 07/28/18 14:14 Regadenoson (Lexiscan) 0.4 mg ONCE PRN IV stress test 07/02/18 13:00 07/03/18 12:59 Sucralfate (Carafate) 1 gm FOUR TIMES A DAY ORAL 06/28/18 18:00 07/28/18 17:59 07/02/18 12:52 Temazepam (Restoril) 15 mg HSPRN PRN ORAL Insomnia 06/27/18 21:00 07/04/18 20:59 06/28/18 22:39 Betsy Quintero M.D. Jul 02, 2018 15:59
[2018-07-02 16:00] VITALS: BP 116/46
--- NOTE | 2018-07-02 17:12 | Internal Med Progress Note ---
Subjective Date of Service: Jul 02, 2018 Physician Name Aldair Card Attending Physician Nahun Alfaro MD Current Medications Medications (Trade) Dose Ordered Sig/Deidre Route PRN Reason Start Time Stop Time Status Last Admin Dose Admin Acetaminophen (Tylenol) 650 mg Q4H PRN ORAL Fever 06/27/18 18:56 07/27/18 18:55 06/28/18 09:49 Acetaminophen/ Hydrocodone Bitart ([place] 5/325) 1 tab Q6H PRN ORAL For Pain 06/28/18 19:45 07/05/18 19:44 06/30/18 06:25 Acetazolamide (Diamox 500mg Inj) 250 mg EVERY 12 HOURS IVP 06/30/18 21:00 07/30/18 20:59 07/02/18 09:48 Albuterol/ Ipratropium (Albuterol/ Ipratropium) 3 ml Q4HRT HHN 06/30/18 15:00 07/05/18 14:59 07/02/18 10:18 Aspirin (ASA) 81 mg DAILY ORAL 06/29/18 09:00 07/29/18 08:59 07/01/18 09:15 Atorvastatin Calcium (Lipitor) 20 mg BEDTIME ORAL 06/28/18 21:00 07/28/18 20:59 07/01/18 20:53 Dextrose (Dextrose 50%) 25 ml Q30M PRN IV Hypoglycemia 06/28/18 14:15 07/28/18 14:14 Dextrose (Dextrose 50%) 50 ml Q30M PRN IV Hypoglycemia 06/28/18 14:15 07/28/18 14:14 Furosemide (Lasix) 40 mg DAILY IV 07/02/18 09:00 07/27/18 21:59 07/02/18 09:47 Heparin Sodium (Porcine) (Heparin 5000 units/ml) 5,000 units EVERY 12 HOURS SUBQ 06/27/18 21:00 07/27/18 20:59 07/02/18 09:49 Insulin Aspart (NovoLOG) BEFORE MEALS AND HS SUBQ 06/28/18 16:30 07/28/18 16:29 07/01/18 20:58 Metoprolol Tartrate (Lopressor) 25 mg EVERY 12 HOURS ORAL 06/28/18 21:00 07/28/18 20:59 07/01/18 20:55 Ondansetron HCl (Zofran) 4 mg Q6H PRN IVP Nausea & Vomiting 06/27/18 18:56 07/27/18 18:55 Pantoprazole (Protonix) 40 mg Q12HR ORAL 07/01/18 21:00 07/31/18 20:59 07/02/18 09:47 Polyethylene Glycol (Miralax) 17 gm DAILYPRN PRN ORAL Constipation 06/27/18 18:56 07/27/18 18:55 Promethazine HCl/ Codeine (Phenergan with Codeine) 5 ml Q4H PRN ORAL For Cough 06/28/18 14:15 07/28/18 14:14 Regadenoson (Lexiscan) 0.4 mg ONCE PRN IV stress test 07/02/18 13:00 07/03/18 12:59 Sucralfate (Carafate) 1 gm FOUR TIMES A DAY ORAL 06/28/18 18:00 07/28/18 17:59 07/02/18 12:52 Temazepam (Restoril) 15 mg HSPRN PRN ORAL Insomnia 06/27/18 21:00 07/04/18 20:59 06/28/18 22:39 Allergies: Coded Allergies: No Known Allergies (Unverified , 06/27/18) ROS Limited/Unobtainable: No Constitutional: Reports: no symptoms HEENT: Reports: no symptoms Cardiovascular: Reports: no symptoms Respiratory: Reports: no symptoms Gastrointestinal/Abdominal: Reports: no symptoms Genitourinary: Reports: no symptoms Neurologic/Psychiatric: Reports: no symptoms Subjective 83 YO F with diabetes II admitted with hypoglycemia. Cover for Int Med-Dr Alfaro. Objective Last Vital Signs Date Time Temp Pulse Resp B/P (MAP) Pulse Ox O2 Delivery O2 Flow Rate FiO2 07/02/18 15:19 Nasal Cannula 2.0 28 07/02/18 12:00 63 07/02/18 10:25 16 99 07/02/18 09:00 116/47 07/02/18 08:00 98.0 Laboratory Tests Test 07/02/18 05:44 07/02/18 10:20 White Blood Count 6.1 K/UL (4.8-10.8) Red Blood Count 3.48 M/UL (4.20-5.40) L Hemoglobin 9.6 G/DL (12.0-16.0) L Hematocrit 31.9 % (37.0-47.0) L Mean Corpuscular Volume 91 FL (80-99) Mean Corpuscular Hemoglobin 27.6 PG (27.0-31.0) Mean Corpuscular Hemoglobin Concent 30.2 G/DL (32.0-36.0) L Red Cell Distribution Width 13.8 % (11.6-14.8) Platelet Count 180 K/UL (150-450) Mean Platelet Volume 7.9 FL (6.5-10.1) Neutrophils (%) (Auto) 59.5 % (45.0-75.0) Lymphocytes (%) (Auto) 22.2 % (20.0-45.0) Monocytes (%) (Auto) 10.0 % (1.0-10.0) Eosinophils (%) (Auto) 5.8 % (0.0-3.0) H Basophils (%) (Auto) 2.6 % (0.0-2.0) H Sodium Level 142 MMOL/L (136-145) Potassium Level 3.8 MMOL/L (3.5-5.1) Chloride Level 101 MMOL/L (98-107) Carbon Dioxide Level 41 MMOL/L (21-32) *H Anion Gap 0 mmol/L (5-15) L Blood Urea Nitrogen 35 mg/dL (7-18) H Creatinine 1.2 MG/DL (0.55-1.30) Estimat Glomerular Filtration Rate mL/min (>60) Glucose Level 127 MG/DL (74-106) H Calcium Level 9.4 MG/DL (8.5-10.1) Total Bilirubin 0.4 MG/DL (0.2-1.0) Aspartate Amino Transf (AST/SGOT) 14 U/L (15-37) L Alanine Aminotransferase (ALT/SGPT) 24 U/L (12-78) Alkaline Phosphatase 81 U/L (46-116) Pro-B-Type Natriuretic Peptide 654 pg/mL (0-125) H Total Protein 6.7 G/DL (6.4-8.2) Albumin 2.9 G/DL (3.4-5.0) L Globulin 3.8 g/dL Albumin/Globulin Ratio 0.8 (1.0-2.7) L Vancomycin Level Trough 2.6 ug/mL (5.0-12.0) L Intake and Output 07/01/18 07/02/18 19:00 07:00 Intake Total 340 ml Output Total 1600 ml Balance 340 ml -1600 ml Intake Oral 340 ml Output Urine Total 1600 ml Objective PHYSICAL EXAMINATION: GENERAL: The patient is a well-developed and well-nourished female, in no apparent distress. HEENT: Eyes, pupils equal and responsive to light and accommodation. Extraocular movements are intact. NECK: Supple without lymphadenopathy. CHEST: Lungs are clear to auscultation bilaterally without wheezes or rales. CARDIOVASCULAR: Regular rate. S1-S2 are normal without murmurs, rubs, or gallops. ABDOMEN: Soft, nontender, and nondistended. Positive bowel sounds. No evidence of hepatosplenomegaly. Currently, no rebound or guarding noted. EXTREMITIES: Negative for clubbing, cyanosis, or edema. RECTAL/GENITAL: Refused. NEUROLOGIC: Cranial nerves II through XII are grossly intact without focal deficits. Motor strength is 5/5 bilaterally. Deep tendon reflexes are 2+ plantar. Assessment/Plan Problem List: (1) GERD (gastroesophageal reflux disease) Assessment & Plan: Continue protonix (2) Dementia (3) Hypoglycemia Assessment & Plan: Improving. Continue novolog sliding scale (4) Diabetes mellitus (5) HTN (hypertension) Assessment & Plan: Continue lopressor (6) CHF exacerbation (7) COPD (chronic obstructive pulmonary disease) (8) COPD exacerbation Assessment & Plan: See pulmonary consult note (9) Bacteremia Assessment & Plan: 1/2 bottles gram neg bacillus. Monitor off antibiotic per ID Assessment/Plan Discharge planning Aldair Card MD Jul 02, 2018 17:12
[2018-07-02 20:00] VITALS: BP 99/59
--- NOTE | 2018-07-02 20:03 | NUR ---
NURSE NOTES: RECEIVED PATIENT RESTING IN BED. NOTED LAC IV SITE RED, SWOLLEN AND TENDER. HL REMOVED, ARM ELEVATED ON PILLOW. FALL PRECAUTIONS IN PLACE: CALL LIGHT AND BEDSIDE TABLE WITHIN REACH, BED IN LOW POSITION AND BED ALARM ON. WILL CONTINUE WITH PLAN OF CARE.
[2018-07-02] MEDS: Atorvastatin 20mg tab ORAL SCH (21:06)
[2018-07-03] VITALS: BP 139/56
[2018-07-03] MEDS: Albuterol/Ipratropium 3ml neb HHN SCH ×5 (02:13→18:36)
[2018-07-03 04:00] VITALS: BP 141/64
[2018-07-03] MEDS: NovoLOG Insulin Flexpen SUBQ SCH ×3 (06:20→16:44)
--- NOTE | 2018-07-03 06:21 | NUR ---
NURSE NOTES: PATIENT KEPT CLEAN AND DRY, AM CARE GIVEN, LOTION APPLIED , LINEN CHANGED. BLE ELEVATED ON PILLOW WITH HEALS FLOATING. ALL NEEDS ATTENDED.
[2018-07-03 06:27] LABS: BASOPHILS % (AUTO) 2.8 % (0.0-2.0); EOSINOPHILS % (AUTO) 8.4 % (0.0-3.0); HEMATOCRIT 33.7 % (37.0-47.0); LYMPHOCYTES % (AUTO) 29.7 % (20.0-45.0); MEAN CORPUSCULAR VOLUME 92 FL (80-99); NEUTROPHILS % (AUTO) 48.1 % (45.0-75.0); PLATELET COUNT 184 K/UL (150-450); RED BLOOD COUNT 3.65 M/UL (4.20-5.40); RED CELL DISTRIBUTION WIDTH 13.3 % (11.6-14.8); WHITE BLOOD COUNT 4.8 K/UL (4.8-10.8)
[2018-07-03 07:11] LABS: ALANINE AMINOTRANSFERASE 23 U/L (12-78); ALBUMIN/GLOBULIN RATIO 0.8 (1.0-2.7); ALKALINE PHOSPHATASE 80 U/L (46-116); ANION GAP 5 mmol/L (5-15); ASPARTATE AMINO TRANSFERASE 13 U/L (15-37); BILIRUBIN,TOTAL 0.5 MG/DL (0.2-1.0); BLOOD UREA NITROGEN 32 mg/dL (7-18); CALCIUM 9.4 MG/DL (8.5-10.1); CARBON DIOXIDE 37 MMOL/L (21-32); CHLORIDE 102 MMOL/L (98-107); CREATININE 1.3 MG/DL (0.55-1.30); POTASSIUM 3.7 MMOL/L (3.5-5.1); SODIUM 144 MMOL/L (136-145)
--- NOTE | 2018-07-03 07:40 | NUR ---
HAND-OFF: Report given to DARWIN MARIANO. PATIENT HAVING BREAKFAST, NO SIGNS OF DISTRESS NOTED.
--- NOTE | 2018-07-03 07:45 | NUR ---
NURSE NOTES: Received patient from DARWIN Ruggiero in bed resting, denies any pain. Patient is alert and oriented x4, able to make needs known. Noted RFA IV, intact and patent. Endorsed by outgoing nurse and noted L. upper arm swollen. Bed is in lowest level, brakes engaged for safety. Call light is within reach. Will continue with the plan of care.
--- NOTE | 2018-07-03 07:46 | NUR ---
DISCHARGE PLANNING CLINICALS HAVE BEEN FAXED TO [facility] T: [phone] F: [phone]
[2018-07-03 08:00] VITALS: BP 119/71
[2018-07-03] MEDS: Sucralfate 1gm tab ORAL SCH ×3 (08:22→18:03)
[2018-07-03] MEDS: Aspirin Baby 81mg ORAL SCH (08:22)
[2018-07-03] MEDS: Metoprolol 25mg tab ORAL SCH (08:24)
[2018-07-03] MEDS: Heparin 5000 units/ml inj SUBQ SCH (08:27)
--- NOTE | 2018-07-03 09:13 | Infectious Diseases Prog Note ---
Assessment/Plan Assessment/Plan Abx: IV Vancomycin 06/29-07/01 Ceftriaxone x1 06/27 Assessment: CHF exacerbation -CXR: Stable enlarged heart size. Increased pulmonary markings can be suggestive of congestion/early edema. Afebrile No leukocytosis -u.a neg Gram positive bacteremia- contaminants' -06/27 Bcx 04/05 S. epi, 04/05 Bacillus sp (not anthracis); 06/29 BCx NTD CHF HTN Dm2 COPD morbid obesity GERD Dementia CAD/CT Plan: -Continue to monitor off abx as patient stable -f.u cx -Monitor CBC/CMP, temperatures -aspiration precautions Will continue to follow along with you. Subjective Allergies: Coded Allergies: No Known Allergies (Unverified , 06/27/18) Subjective Afebrile Comfortable on RA No Leukcoytosis Objective Vital Signs Last 24 Hour Vital Signs Date Time Temp Pulse Resp B/P (MAP) Pulse Ox O2 Delivery O2 Flow Rate FiO2 07/03/18 08:24 71 119/71 07/03/18 08:06 70 18 98 Room Air 21 07/03/18 07:56 67 20 99 Nasal Cannula 2.0 28 07/03/18 07:56 99 Nasal Cannula 2.0 28 07/03/18 07:56 Nasal Cannula 2.0 28 07/03/18 04:00 65 07/03/18 04:00 98.2 96 18 141/64 (89) 100 07/03/18 02:13 62 18 97 Nasal Cannula 2.0 28 07/03/18 02:00 61 18 95 Nasal Cannula 2.0 28 07/03/18 00:00 60 07/03/18 00:00 98.7 66 19 139/56 (83) 98 07/02/18 23:40 68 18 97 Nasal Cannula 2.0 28 07/02/18 23:30 62 18 96 Nasal Cannula 2.0 28 07/02/18 21:02 Nasal Cannula 2.0 28 07/02/18 21:02 97 Nasal Cannula 2.0 28 07/02/18 21:00 Nasal Cannula 2.0 07/02/18 21:00 64 99/59 07/02/18 20:00 64 18 96 Nasal Cannula 2.0 28 07/02/18 20:00 62 07/02/18 20:00 99.0 63 18 99/59 (72) 100 07/02/18 19:50 60 18 94 Nasal Cannula 2.0 28 07/02/18 16:00 69 07/02/18 16:00 98.5 68 20 116/46 (69) 100 07/02/18 15:19 Nasal Cannula 2.0 28 07/02/18 15:19 Nasal Cannula 2.0 28 07/02/18 12:00 63 07/02/18 10:25 80 16 99 Nasal Cannula 2.0 28 07/02/18 10:18 66 16 95 Nasal Cannula 2.0 28 Height (Feet): 5 Height (Inches): 7.00 Weight (Pounds): 223 Objective GENERAL: NAD HEENT: NCAT, MMM, EOMI CHEST: Lungs are clear to auscultation bilaterally without wheezes or rales. CARDIOVASCULAR: Regular rate. S1-S2 are normal without murmurs, rubs, or gallops. ABDOMEN: Soft, nontender, and nondistended. Positive bowel sounds. EXTREMITIES: Negative for clubbing, cyanosis, or edema. Laboratory Tests Test 07/02/18 10:20 07/03/18 05:50 Vancomycin Level Trough 2.6 ug/mL (5.0-12.0) L White Blood Count 4.8 K/UL (4.8-10.8) Red Blood Count 3.65 M/UL (4.20-5.40) L Hemoglobin 10.0 G/DL (12.0-16.0) L Hematocrit 33.7 % (37.0-47.0) L Mean Corpuscular Volume 92 FL (80-99) Mean Corpuscular Hemoglobin 27.3 PG (27.0-31.0) Mean Corpuscular Hemoglobin Concent 29.6 G/DL (32.0-36.0) L Red Cell Distribution Width 13.3 % (11.6-14.8) Platelet Count 184 K/UL (150-450) Mean Platelet Volume 8.0 FL (6.5-10.1) Neutrophils (%) (Auto) 48.1 % (45.0-75.0) Lymphocytes (%) (Auto) 29.7 % (20.0-45.0) Monocytes (%) (Auto) 11.0 % (1.0-10.0) H Eosinophils (%) (Auto) 8.4 % (0.0-3.0) H Basophils (%) (Auto) 2.8 % (0.0-2.0) H Sodium Level 144 MMOL/L (136-145) Potassium Level 3.7 MMOL/L (3.5-5.1) Chloride Level 102 MMOL/L (98-107) Carbon Dioxide Level 37 MMOL/L (21-32) H Anion Gap 5 mmol/L (5-15) Blood Urea Nitrogen 32 mg/dL (7-18) H Creatinine 1.3 MG/DL (0.55-1.30) Estimat Glomerular Filtration Rate mL/min (>60) Glucose Level 106 MG/DL (74-106) Calcium Level 9.4 MG/DL (8.5-10.1) Total Bilirubin 0.5 MG/DL (0.2-1.0) Aspartate Amino Transf (AST/SGOT) 13 U/L (15-37) L Alanine Aminotransferase (ALT/SGPT) 23 U/L (12-78) Alkaline Phosphatase 80 U/L (46-116) Pro-B-Type Natriuretic Peptide 497 pg/mL (0-125) H Total Protein 6.8 G/DL (6.4-8.2) Albumin 3.0 G/DL (3.4-5.0) L Globulin 3.8 g/dL Albumin/Globulin Ratio 0.8 (1.0-2.7) L Current Medications Medications (Trade) Dose Ordered Sig/Deidre Route PRN Reason Start Time Stop Time Status Last Admin Dose Admin Acetaminophen (Tylenol) 650 mg Q4H PRN ORAL Fever 06/27/18 18:56 07/27/18 18:55 06/28/18 09:49 Acetaminophen/ Hydrocodone Bitart ([place] 5/325) 1 tab Q6H PRN ORAL For Pain 06/28/18 19:45 07/05/18 19:44 06/30/18 06:25 Acetazolamide (Diamox 500mg Inj) 250 mg EVERY 12 HOURS IVP 06/30/18 21:00 07/30/18 20:59 07/02/18 22:23 Albuterol/ Ipratropium (Albuterol/ Ipratropium) 3 ml Q4HRT HHN 06/30/18 15:00 07/05/18 14:59 07/03/18 07:56 Aspirin (ASA) 81 mg DAILY ORAL 06/29/18 09:00 07/29/18 08:59 07/03/18 08:22 Atorvastatin Calcium (Lipitor) 20 mg BEDTIME ORAL 06/28/18 21:00 07/28/18 20:59 07/02/18 21:06 Dextrose (Dextrose 50%) 25 ml Q30M PRN IV Hypoglycemia 06/28/18 14:15 07/28/18 14:14 Dextrose (Dextrose 50%) 50 ml Q30M PRN IV Hypoglycemia 06/28/18 14:15 07/28/18 14:14 Furosemide (Lasix) 40 mg DAILY IV 07/02/18 09:00 07/27/18 21:59 07/03/18 08:25 Heparin Sodium (Porcine) (Heparin 5000 units/ml) 5,000 units EVERY 12 HOURS SUBQ 06/27/18 21:00 07/27/18 20:59 07/03/18 08:27 Insulin Aspart (NovoLOG) BEFORE MEALS AND HS SUBQ 06/28/18 16:30 07/28/18 16:29 07/02/18 18:55 Metoprolol Tartrate (Lopressor) 25 mg EVERY 12 HOURS ORAL 06/28/18 21:00 07/28/18 20:59 07/03/18 08:24 Ondansetron HCl (Zofran) 4 mg Q6H PRN IVP Nausea & Vomiting 06/27/18 18:56 07/27/18 18:55 Pantoprazole (Protonix) 40 mg Q12HR ORAL 07/01/18 21:00 07/31/18 20:59 07/03/18 08:24 Polyethylene Glycol (Miralax) 17 gm DAILYPRN PRN ORAL Constipation 06/27/18 18:56 07/27/18 18:55 Promethazine HCl/ Codeine (Phenergan with Codeine) 5 ml Q4H PRN ORAL For Cough 06/28/18 14:15 07/28/18 14:14 Regadenoson (Lexiscan) 0.4 mg ONCE PRN IV stress test 07/02/18 13:00 07/03/18 12:59 Sucralfate (Carafate) 1 gm FOUR TIMES A DAY ORAL 06/28/18 18:00 07/28/18 17:59 07/03/18 08:22 Temazepam (Restoril) 15 mg HSPRN PRN ORAL Insomnia 06/27/18 21:00 07/04/18 20:59 06/28/18 22:39 Graeme Bautista MD Jul 03, 2018 09:13
[2018-07-03] MEDS: acetaZOLAMIDE 500mg Inj IVP SCH (11:01)
[2018-07-03] MEDS ORDERED: LIPITOR20 MG ORAL (11:42)
[2018-07-03] MEDS ORDERED: NORCO 5-325 TA1 EACH ORAL (11:42)
[2018-07-03] MEDS ORDERED: NOVOLOG100 UNITS1 SUBQ (11:42)
[2018-07-03] MEDS ORDERED: LOPRESSOR25 M1 ORAL (11:42)
[2018-07-03] MEDS ORDERED: ASPIRIN81 MG ORAL (11:42)
[2018-07-03] MEDS ORDERED: SUCRALFATE1 GM ORAL (11:42)
--- NOTE | 2018-07-03 11:46 | Pulmonology Progress Note ---
Assessment/Plan Problems: (1) Acute respiratory failure (2) Bacteremia (3) Pulmonary edema (4) COPD (chronic obstructive pulmonary disease) (5) Unable to ambulate (6) HTN (hypertension) (7) Morbid obesity (8) Diabetes mellitus Assessment/Plan 95905 cc negative fluid balance add Diamox b/o increasing HCo2 stress test in process watch carefully, bun/creatinine, decrease lasix 40 to Q daily Echo noted, diastolic dysfunction decrease lasix dose, watch bun/creatinine titrate cardiac meds pt/ot on Aspirin and beta blockers stress test was negative dc to custodial Subjective ROS Limited/Unobtainable: No Constitutional: Reports: no symptoms HEENT: Repors: no symptoms Allergies: Coded Allergies: No Known Allergies (Unverified , 06/27/18) Objective Last 24 Hour Vital Signs Date Time Temp Pulse Resp B/P (MAP) Pulse Ox O2 Delivery O2 Flow Rate FiO2 07/03/18 11:42 63 16 97 Nasal Cannula 2.0 28 07/03/18 09:00 Nasal Cannula 2.0 07/03/18 08:24 71 119/71 07/03/18 08:06 70 18 98 Room Air 21 07/03/18 08:00 99.0 66 18 119/71 (87) 100 07/03/18 08:00 66 07/03/18 07:56 67 20 99 Nasal Cannula 2.0 28 07/03/18 07:56 99 Nasal Cannula 2.0 28 07/03/18 07:56 Nasal Cannula 2.0 28 07/03/18 04:00 65 07/03/18 04:00 98.2 96 18 141/64 (89) 100 07/03/18 02:13 62 18 97 Nasal Cannula 2.0 28 07/03/18 02:00 61 18 95 Nasal Cannula 2.0 28 07/03/18 00:00 60 07/03/18 00:00 98.7 66 19 139/56 (83) 98 07/02/18 23:40 68 18 97 Nasal Cannula 2.0 28 07/02/18 23:30 62 18 96 Nasal Cannula 2.0 28 07/02/18 21:02 Nasal Cannula 2.0 28 07/02/18 21:02 97 Nasal Cannula 2.0 28 07/02/18 21:00 Nasal Cannula 2.0 07/02/18 21:00 64 99/59 07/02/18 20:00 64 18 96 Nasal Cannula 2.0 28 07/02/18 20:00 62 07/02/18 20:00 99.0 63 18 99/59 (72) 100 07/02/18 19:50 60 18 94 Nasal Cannula 2.0 28 07/02/18 16:00 69 07/02/18 16:00 98.5 68 20 116/46 (69) 100 07/02/18 15:19 Nasal Cannula 2.0 28 07/02/18 15:19 Nasal Cannula 2.0 28 07/02/18 12:00 63 Intake and Output 07/02/18 07/03/18 19:00 07:00 Intake Total 240 ml 120 ml Output Total 1300 ml 1250 ml Balance -1060 ml -1130 ml Intake Oral 240 ml 120 ml Output Urine Total 1300 ml 1250 ml Objective General Appearance: WD/WN, no apparent distress Lines, tubes and drains: peripheral HEENT: normocephalic, atraumatic Neck: non-tender, normal alignment Respiratory/Chest: chest wall non-tender, lungs clear Breasts: no masses Cardiovascular/Chest: normal peripheral pulses Abdomen: normal bowel sounds, non tender Extremities: normal range of motion, + edema Skin Exam: normal pigmentation Laboratory Tests 07/03/18 05:50: White Blood Count 4.8, Red Blood Count 3.65L, Hemoglobin 10.0L, Hematocrit 33.7L , Mean Corpuscular Volume 92, Mean Corpuscular Hemoglobin 27.3, Mean Corpuscular Hemoglobin Concent 29.6L, Red Cell Distribution Width 13.3, Platelet Count 184, Mean Platelet Volume 8.0, Neutrophils (%) (Auto) 48.1, Lymphocytes (%) (Auto) 29.7, Monocytes (%) (Auto) 11.0H, Eosinophils (%) (Auto) 8.4H, Basophils (%) (Auto) 2.8H, Sodium Level 144, Potassium Level 3.7, Chloride Level 102, Carbon Dioxide Level 37H, Anion Gap 5, Blood Urea Nitrogen 32H, Creatinine 1.3, Estimat Glomerular Filtration Rate , Glucose Level 106, Calcium Level 9.4, Total Bilirubin 0.5, Aspartate Amino Transf (AST/SGOT) 13L, Alanine Aminotransferase (ALT/SGPT) 23, Alkaline Phosphatase 80, Pro-B-Type Natriuretic Peptide 497H, Total Protein 6.8, Albumin 3.0L, Globulin 3.8, Albumin /Globulin Ratio 0.8L Current Medications Medications (Trade) Dose Ordered Sig/Deidre Route PRN Reason Start Time Stop Time Status Last Admin Dose Admin Acetaminophen (Tylenol) 650 mg Q4H PRN ORAL Fever 06/27/18 18:56 07/27/18 18:55 06/28/18 09:49 Acetaminophen/ Hydrocodone Bitart ([place] 5/325) 1 tab Q6H PRN ORAL For Pain 06/28/18 19:45 07/05/18 19:44 06/30/18 06:25 Acetazolamide (Diamox 500mg Inj) 250 mg EVERY 12 HOURS IVP 06/30/18 21:00 07/30/18 20:59 07/03/18 11:01 Albuterol/ Ipratropium (Albuterol/ Ipratropium) 3 ml Q4HRT HHN 06/30/18 15:00 07/05/18 14:59 07/03/18 11:42 Aspirin (ASA) 81 mg DAILY ORAL 06/29/18 09:00 07/29/18 08:59 07/03/18 08:22 Atorvastatin Calcium (Lipitor) 20 mg BEDTIME ORAL 06/28/18 21:00 07/28/18 20:59 07/02/18 21:06 Dextrose (Dextrose 50%) 25 ml Q30M PRN IV Hypoglycemia 06/28/18 14:15 07/28/18 14:14 Dextrose (Dextrose 50%) 50 ml Q30M PRN IV Hypoglycemia 06/28/18 14:15 07/28/18 14:14 Furosemide (Lasix) 40 mg DAILY IV 07/02/18 09:00 07/27/18 21:59 07/03/18 08:25 Heparin Sodium (Porcine) (Heparin 5000 units/ml) 5,000 units EVERY 12 HOURS SUBQ 06/27/18 21:00 07/27/18 20:59 07/03/18 08:27 Insulin Aspart (NovoLOG) BEFORE MEALS AND HS SUBQ 06/28/18 16:30 07/28/18 16:29 07/02/18 18:55 Metoprolol Tartrate (Lopressor) 25 mg EVERY 12 HOURS ORAL 06/28/18 21:00 07/28/18 20:59 07/03/18 08:24 Ondansetron HCl (Zofran) 4 mg Q6H PRN IVP Nausea & Vomiting 06/27/18 18:56 07/27/18 18:55 Pantoprazole (Protonix) 40 mg Q12HR ORAL 07/01/18 21:00 07/31/18 20:59 07/03/18 08:24 Polyethylene Glycol (Miralax) 17 gm DAILYPRN PRN ORAL Constipation 06/27/18 18:56 07/27/18 18:55 Promethazine HCl/ Codeine (Phenergan with Codeine) 5 ml Q4H PRN ORAL For Cough 06/28/18 14:15 07/28/18 14:14 Regadenoson (Lexiscan) 0.4 mg ONCE PRN IV stress test 07/02/18 13:00 07/03/18 12:59 Sucralfate (Carafate) 1 gm FOUR TIMES A DAY ORAL 06/28/18 18:00 07/28/18 17:59 07/03/18 08:22 Temazepam (Restoril) 15 mg HSPRN PRN ORAL Insomnia 06/27/18 21:00 07/04/18 20:59 06/28/18 22:39 Tawanna Watkins MD Jul 03, 2018 11:46
[2018-07-03 12:00] VITALS: BP 116/60
[2018-07-03] MEDS: Docusate 100mg cap ORAL SCH ×2 (12:59→18:03)
[2018-07-03] MEDS: Lactulose 20gm/30ml UDC ORAL SCH ×2 (12:59→18:03)
--- NOTE | 2018-07-03 13:30 | NUR ---
DISCHARGE PLANNING PATIENT DOESN'T FEEL SAFE RETURNING HOME AND REQUESTING SNF PLACEMENT MESSAGE LEFT FOR DR CHACON Addendum: 07/03/18 at 1348 by DESTINY REYES LVN LVN REFERRED TO [facility] [address] PER DR CHACON'S REQUEST
--- NOTE | 2018-07-03 14:57 | Cardiac Electrophysiology PN ---
Assessment/Plan Assessment/Plan 1. Troponin elevation. 2 out of 4 troponins are negative. The EKG, however, do not show any acute ischemic changes. She is mildly azotemic.No CP. EF 55% The patient is on aspirin and Lopressor and statin. Stress test yesterday was nonischemic 2. Congestive heart failure with diastolic dysfunction. On Lasix 40 mg IV daily and Lopressor 3. Obesity. 4. Chronic obstructive pulmonary disease/ PNA. Under management of Dr. Watkins. REYES RN DC planning Subjective Subjective Comfortable in NAD. Had nuclear stress test yesterday that was negative Objective Last 24 Hour Vital Signs Date Time Temp Pulse Resp B/P (MAP) Pulse Ox O2 Delivery O2 Flow Rate FiO2 07/03/18 12:00 63 07/03/18 12:00 97.7 62 18 116/60 (78) 99 07/03/18 11:54 64 16 98 Nasal Cannula 2.0 28 07/03/18 11:42 63 16 97 Nasal Cannula 2.0 28 07/03/18 09:00 Nasal Cannula 2.0 07/03/18 08:24 71 119/71 07/03/18 08:06 70 18 98 Room Air 21 07/03/18 08:00 99.0 66 18 119/71 (87) 100 07/03/18 08:00 66 07/03/18 07:56 67 20 99 Nasal Cannula 2.0 28 07/03/18 07:56 99 Nasal Cannula 2.0 28 07/03/18 07:56 Nasal Cannula 2.0 28 07/03/18 04:00 65 07/03/18 04:00 98.2 96 18 141/64 (89) 100 07/03/18 02:13 62 18 97 Nasal Cannula 2.0 28 07/03/18 02:00 61 18 95 Nasal Cannula 2.0 28 07/03/18 00:00 60 07/03/18 00:00 98.7 66 19 139/56 (83) 98 07/02/18 23:40 68 18 97 Nasal Cannula 2.0 28 07/02/18 23:30 62 18 96 Nasal Cannula 2.0 28 07/02/18 21:02 Nasal Cannula 2.0 28 07/02/18 21:02 97 Nasal Cannula 2.0 28 07/02/18 21:00 Nasal Cannula 2.0 07/02/18 21:00 64 99/59 07/02/18 20:00 64 18 96 Nasal Cannula 2.0 28 07/02/18 20:00 62 07/02/18 20:00 99.0 63 18 99/59 (72) 100 07/02/18 19:50 60 18 94 Nasal Cannula 2.0 28 07/02/18 16:00 69 07/02/18 16:00 98.5 68 20 116/46 (69) 100 07/02/18 15:19 Nasal Cannula 2.0 28 07/02/18 15:19 Nasal Cannula 2.0 28 Intake and Output 07/02/18 07/03/18 19:00 07:00 Intake Total 240 ml 120 ml Output Total 1300 ml 1250 ml Balance -1060 ml -1130 ml Intake Oral 240 ml 120 ml Output Urine Total 1300 ml 1250 ml Laboratory Tests Test 07/03/18 05:50 White Blood Count 4.8 K/UL (4.8-10.8) Red Blood Count 3.65 M/UL (4.20-5.40) L Hemoglobin 10.0 G/DL (12.0-16.0) L Hematocrit 33.7 % (37.0-47.0) L Mean Corpuscular Volume 92 FL (80-99) Mean Corpuscular Hemoglobin 27.3 PG (27.0-31.0) Mean Corpuscular Hemoglobin Concent 29.6 G/DL (32.0-36.0) L Red Cell Distribution Width 13.3 % (11.6-14.8) Platelet Count 184 K/UL (150-450) Mean Platelet Volume 8.0 FL (6.5-10.1) Neutrophils (%) (Auto) 48.1 % (45.0-75.0) Lymphocytes (%) (Auto) 29.7 % (20.0-45.0) Monocytes (%) (Auto) 11.0 % (1.0-10.0) H Eosinophils (%) (Auto) 8.4 % (0.0-3.0) H Basophils (%) (Auto) 2.8 % (0.0-2.0) H Sodium Level 144 MMOL/L (136-145) Potassium Level 3.7 MMOL/L (3.5-5.1) Chloride Level 102 MMOL/L (98-107) Carbon Dioxide Level 37 MMOL/L (21-32) H Anion Gap 5 mmol/L (5-15) Blood Urea Nitrogen 32 mg/dL (7-18) H Creatinine 1.3 MG/DL (0.55-1.30) Estimat Glomerular Filtration Rate mL/min (>60) Glucose Level 106 MG/DL (74-106) Calcium Level 9.4 MG/DL (8.5-10.1) Total Bilirubin 0.5 MG/DL (0.2-1.0) Aspartate Amino Transf (AST/SGOT) 13 U/L (15-37) L Alanine Aminotransferase (ALT/SGPT) 23 U/L (12-78) Alkaline Phosphatase 80 U/L (46-116) Pro-B-Type Natriuretic Peptide 497 pg/mL (0-125) H Total Protein 6.8 G/DL (6.4-8.2) Albumin 3.0 G/DL (3.4-5.0) L Globulin 3.8 g/dL Albumin/Globulin Ratio 0.8 (1.0-2.7) L Objective HEAD AND NECK: No JVD. LUNGS: Clear. CARDIOVASCULAR: Regular S1 and S2 with no gallop or murmur. ABDOMEN: Soft. EXTREMITIES: 1+ pitting edema. Alvin Kiran MD Jul 03, 2018 14:57
[2018-07-03 16:00] VITALS: BP 114/62
--- NOTE | 2018-07-03 16:18 | NUR ---
DISCHARGE PLAN PATIENT WILL DISCHARGE TO [facility] [address] SKILLED T: [phone] FOR NURSE TO NURSE REPORT [facility] HAS BEEN ARRANGED FOR 1814 METAL CAN INSPECTOR SPOKE WITH PATIENT'S DAUGHTER,MARIAN,T: [phone]...SHE IS IN AGREEMENT WITH DISCHARGE PLAN
--- NOTE | 2018-07-03 17:05 | NUR ---
NURSE NOTES: INTER-FACILITY REPORT GIVEN TO DARWIN HERNANDEZ AT [facility] [address].
--- NOTE | 2018-07-03 18:32 | Internal Med Progress Note ---
Subjective Date of Service: Jul 03, 2018 Physician Name Aldair Card Attending Physician Nahun Alfaro MD Current Medications Medications (Trade) Dose Ordered Sig/Deidre Route PRN Reason Start Time Stop Time Status Last Admin Dose Admin Acetaminophen (Tylenol) 650 mg Q4H PRN ORAL Fever 06/27/18 18:56 07/27/18 18:55 06/28/18 09:49 Acetaminophen/ Hydrocodone Bitart ([place] 5/325) 1 tab Q6H PRN ORAL For Pain 06/28/18 19:45 07/05/18 19:44 06/30/18 06:25 Acetazolamide (Diamox 500mg Inj) 250 mg EVERY 12 HOURS IVP 06/30/18 21:00 07/30/18 20:59 07/03/18 11:01 Albuterol/ Ipratropium (Albuterol/ Ipratropium) 3 ml Q4HRT HHN 06/30/18 15:00 07/05/18 14:59 07/03/18 15:45 Aspirin (ASA) 81 mg DAILY ORAL 06/29/18 09:00 07/29/18 08:59 07/03/18 08:22 Atorvastatin Calcium (Lipitor) 20 mg BEDTIME ORAL 06/28/18 21:00 07/28/18 20:59 07/02/18 21:06 Dextrose (Dextrose 50%) 25 ml Q30M PRN IV Hypoglycemia 06/28/18 14:15 07/28/18 14:14 Dextrose (Dextrose 50%) 50 ml Q30M PRN IV Hypoglycemia 06/28/18 14:15 07/28/18 14:14 Docusate Sodium (Colace) 100 mg THREE TIMES A DAY ORAL 07/03/18 13:00 08/02/18 12:59 07/03/18 18:03 Furosemide (Lasix) 40 mg DAILY IV 07/02/18 09:00 07/27/18 21:59 07/03/18 08:25 Heparin Sodium (Porcine) (Heparin 5000 units/ml) 5,000 units EVERY 12 HOURS SUBQ 06/27/18 21:00 07/27/18 20:59 07/03/18 08:27 Insulin Aspart (NovoLOG) BEFORE MEALS AND HS SUBQ 06/28/18 16:30 07/28/18 16:29 07/03/18 16:44 Lactulose (Cephulac) 30 gm THREE TIMES A DAY ORAL 07/03/18 13:00 08/02/18 12:59 07/03/18 18:03 Metoprolol Tartrate (Lopressor) 25 mg EVERY 12 HOURS ORAL 06/28/18 21:00 07/28/18 20:59 07/03/18 08:24 Mineral Oil (Fleet's Mineral Oil Enema) 133 ml EVERY OTHER DAY RECTAL 07/05/18 09:00 08/04/18 08:59 Ondansetron HCl (Zofran) 4 mg Q6H PRN IVP Nausea & Vomiting 06/27/18 18:56 07/27/18 18:55 Pantoprazole (Protonix) 40 mg Q12HR ORAL 07/01/18 21:00 07/31/18 20:59 07/03/18 08:24 Polyethylene Glycol (Miralax) 17 gm BEDTIME ORAL 07/03/18 21:00 08/02/18 20:59 Polyethylene Glycol (Miralax) 17 gm DAILYPRN PRN ORAL Constipation 06/27/18 18:56 07/27/18 18:55 Promethazine HCl/ Codeine (Phenergan with Codeine) 5 ml Q4H PRN ORAL For Cough 06/28/18 14:15 07/28/18 14:14 Sennosides (Senokot) 8.6 mg DAILY ORAL 07/04/18 09:00 08/03/18 08:59 Sucralfate (Carafate) 1 gm FOUR TIMES A DAY ORAL 06/28/18 18:00 07/28/18 17:59 07/03/18 18:03 Temazepam (Restoril) 15 mg HSPRN PRN ORAL Insomnia 06/27/18 21:00 07/04/18 20:59 06/28/18 22:39 Allergies: Coded Allergies: No Known Allergies (Unverified , 06/27/18) ROS Limited/Unobtainable: No Constitutional: Reports: no symptoms HEENT: Reports: no symptoms Cardiovascular: Reports: no symptoms Respiratory: Reports: no symptoms Gastrointestinal/Abdominal: Reports: no symptoms Genitourinary: Reports: no symptoms Neurologic/Psychiatric: Reports: no symptoms Subjective 83 YO F with diabetes II admitted with hypoglycemia. Cover for Int Med-Dr Dominic. Objective Last Vital Signs Date Time Temp Pulse Resp B/P (MAP) Pulse Ox O2 Delivery O2 Flow Rate FiO2 07/03/18 16:00 63 07/03/18 16:00 97.5 18 114/62 (79) 96 07/03/18 15:55 Room Air 21 07/03/18 11:54 2.0 Laboratory Tests Test 07/03/18 05:50 White Blood Count 4.8 K/UL (4.8-10.8) Red Blood Count 3.65 M/UL (4.20-5.40) L Hemoglobin 10.0 G/DL (12.0-16.0) L Hematocrit 33.7 % (37.0-47.0) L Mean Corpuscular Volume 92 FL (80-99) Mean Corpuscular Hemoglobin 27.3 PG (27.0-31.0) Mean Corpuscular Hemoglobin Concent 29.6 G/DL (32.0-36.0) L Red Cell Distribution Width 13.3 % (11.6-14.8) Platelet Count 184 K/UL (150-450) Mean Platelet Volume 8.0 FL (6.5-10.1) Neutrophils (%) (Auto) 48.1 % (45.0-75.0) Lymphocytes (%) (Auto) 29.7 % (20.0-45.0) Monocytes (%) (Auto) 11.0 % (1.0-10.0) H Eosinophils (%) (Auto) 8.4 % (0.0-3.0) H Basophils (%) (Auto) 2.8 % (0.0-2.0) H Sodium Level 144 MMOL/L (136-145) Potassium Level 3.7 MMOL/L (3.5-5.1) Chloride Level 102 MMOL/L (98-107) Carbon Dioxide Level 37 MMOL/L (21-32) H Anion Gap 5 mmol/L (5-15) Blood Urea Nitrogen 32 mg/dL (7-18) H Creatinine 1.3 MG/DL (0.55-1.30) Estimat Glomerular Filtration Rate mL/min (>60) Glucose Level 106 MG/DL (74-106) Calcium Level 9.4 MG/DL (8.5-10.1) Total Bilirubin 0.5 MG/DL (0.2-1.0) Aspartate Amino Transf (AST/SGOT) 13 U/L (15-37) L Alanine Aminotransferase (ALT/SGPT) 23 U/L (12-78) Alkaline Phosphatase 80 U/L (46-116) Pro-B-Type Natriuretic Peptide 497 pg/mL (0-125) H Total Protein 6.8 G/DL (6.4-8.2) Albumin 3.0 G/DL (3.4-5.0) L Globulin 3.8 g/dL Albumin/Globulin Ratio 0.8 (1.0-2.7) L Intake and Output 07/02/18 07/03/18 19:00 07:00 Intake Total 240 ml 120 ml Output Total 1300 ml 1250 ml Balance -1060 ml -1130 ml Intake Oral 240 ml 120 ml Output Urine Total 1300 ml 1250 ml Objective PHYSICAL EXAMINATION: GENERAL: The patient is a well-developed and well-nourished female, in no apparent distress. HEENT: Eyes, pupils equal and responsive to light and accommodation. Extraocular movements are intact. NECK: Supple without lymphadenopathy. CHEST: Lungs are clear to auscultation bilaterally without wheezes or rales. CARDIOVASCULAR: Regular rate. S1-S2 are normal without murmurs, rubs, or gallops. ABDOMEN: Soft, nontender, and nondistended. Positive bowel sounds. No evidence of hepatosplenomegaly. Currently, no rebound or guarding noted. EXTREMITIES: Negative for clubbing, cyanosis, or edema. RECTAL/GENITAL: Refused. NEUROLOGIC: Cranial nerves II through XII are grossly intact without focal deficits. Motor strength is 5/5 bilaterally. Deep tendon reflexes are 2+ plantar. Assessment/Plan Problem List: (1) GERD (gastroesophageal reflux disease) Assessment & Plan: Continue protonix (2) Dementia (3) Hypoglycemia Assessment & Plan: Improving. Continue novolog sliding scale. See endocrinology note. (4) Diabetes mellitus (5) HTN (hypertension) Assessment & Plan: Continue lopressor (6) CHF exacerbation (7) COPD (chronic obstructive pulmonary disease) (8) COPD exacerbation Assessment & Plan: See pulmonary consult note (9) Bacteremia Assessment & Plan: 1/2 bottles gram neg bacillus. Monitor off antibiotic per ID Assessment/Plan Discharge planning Aldair Card MD Jul 03, 2018 18:32
--- NOTE | 2018-07-03 19:10 | NUR ---
HAND-OFF: Report given to DARWIN Day. Endorsed plan of care.
--- NOTE | 2018-07-03 19:56 | NUR ---
NURSE NOTES: patient received. patient in no acute distress at this time. patient complains of no pain at this time. patient awake alert and oriented x4. patient IV intact and asymptomatic. patient waiting for transport to [facility] rehab. will continue to monitor.
--- NOTE | 2018-07-03 20:30 | NUR ---
NURSE NOTES: patient was picked up by [facility] transport center. IV and groundwater monitoring technician was taken off. Sutton catheter still intact and patient will be leaving with it. called [facility] rehab and checked orders as well to confirm. patient belongings were send with patient. patient belongings list signed. report given by previous nurse to Layne at [facility]. discharge instructions given to patient. patient left via ambulance.
[2018-07-03] MEDS ORDERED: Miralax 17gm pkt ORAL SCH (21:00)
--- NOTE | 2018-07-04 08:59 | Discharge Summary ---
Discharge Summary Discharge Summary _ DATE OF ADMISSION: 06/27/2018 DATE OF DISCHARGE: 07/03/2018 ADMITTING MD: Dr. Nahun Alfaro DISCHARGED BY: Dr. Tawanna Watkins CONSULTANTS: Dr. Tawanna Quintero [facility] COURSE: Patient is an 83-year-old female, who presented with a chief complaint of hypoglycemic episode. Patient lives alone. Patient was previously in an assisted living/[facility] facility the patient stated her family lives far away. Stated she began to experience blurred vision and nausea couple of days prior. She called EMS and was found to have fingerstick blood glucose of 30. She was then given glucagon in the field. She was transported to ED for further evaluation. She has medical history significant for type 2 diabetes mellitus, hypertension, coronary artery disease, status post TX, COPD, GERD, status post cholecystectomy and Alzheimer's dementia. On evaluation at the ED, vital signs were stable. Blood work did not show any acidosis, hemoglobin 11, hematocrit 36. Electrolytes were normal. BUN was elevated to 33, creatinine 1.0. Troponin was negative. Glucose was 67, despite getting glucagon en route. Urinalysis was negative. EKGs showed normal sinus rhythm with no acute changes. Chest x-ray showed evidence of CHF. She was then admitted for evaluation of acute exacerbation of CHF and COPD. She was given nebulizer treatment. Venous duplex of lower extremity was negative for acute DVT. Cardiac evaluation was done. Patient had pressure in the chest and had a prior history of myocardial infarction. Patient had troponin elevations. EKG, however, did not show any acute ischemic changes. She was given aspirin and low -dose beta-olivia and statin. Echocardiogram showed ejection fraction 50-60% ventricular systolic pressure of 54 mmHg consistent with moderate pulmonary hypertension. She was given IV diuresis. Diamox was eventually added. Patient had negative fluid balance. Kidney function was monitored. Blood culture on 06/27/2018 showed growth of Staphylococcus epidermidis and bacillus. She was given ceftriaxone and IV vancomycin. ID was consulted. There was no fever and no leukocytosis. Repeat blood culture on 06/29/2018 did not isolate any growth. Patient was monitored off antibiotics. Patient was slowly progressing. Repeat chest x-ray showed increased pulmonary markings. She was given nebulizer treatments and O2 support. Blood glucose was stable. On 07/02/2018, she underwent Lexiscan stress test. Results were nonischemic, calculated post stress ejection fraction 68%. Patient was initially planned for discharge home, however, patient unable to care for herself, unable to be safely discharged home. She was then referred to a snf. FINAL DIAGNOSES: Acute diastolic CHF in exacerbation COPD exacerbation Diabetes mellitus with episode of hypoglycemia Dementia GERD Hypertension Morbid obesity Bacteremia possibly contaminants Coronary artery disease with previous TX DISPOSITION: DC to [facility]. DISCHARGE MEDICATIONS: Refer to Discharge Medication List. I have been assigned to complete a discharge summary on this account, I was not involved with the patient's management. Bianca Pederson NP Jul 04, 2018 08:59
[2018-07-04] MEDS ORDERED: Sennosides 8.6mg tab ORAL SCH (09:00)
[2018-07-05] MEDS ORDERED: Fleet's Mineral Oil Enema RECTAL SCH (09:00)
== END 2018-07-03 20:30 | DRG 637 ==
LOC: EDSEX 14:07 → EDBD 14:07 → EMR 14:18 → 3E 15:08 → EDBEDREQ 16:08 → EDBEDREQSVC 16:44 → EDBEDREQ 17:08 → 2E 18:44
DX: E11.649 Type 2 diabetes mellitus with hypoglycemia without coma (principal); J96.00 Acute respiratory failure, unspecified whether with hypoxia or hypercapnia; I50.33 Acute on chronic diastolic (congestive) heart failure; J44.1 Chronic obstructive pulmonary disease with (acute) exacerbation; Z79.4 Long term (current) use of insulin; I25.10 Atherosclerotic heart disease of native coronary artery without angina pectoris; K21.9 Gastro-esophageal reflux disease without esophagitis; I11.0 Hypertensive heart disease with heart failure; E66.01 Morbid (severe) obesity due to excess calories; I25.2 Old myocardial infarction; G30.9 Alzheimer's disease, unspecified; F02.80 Dementia in other diseases classified elsewhere, unspecified severity, without behavioral disturbance, psychotic disturbance, mood disturbance, and anxiety; Z90.49 Acquired absence of other specified parts of digestive tract; Z87.891 Personal history of nicotine dependence; Z60.2 Problems related to living alone; R26.2 Difficulty in walking, not elsewhere classified
CPT/HCPCS: 36415; 71045; 78452; 80048; 80053; 80069; 80202; 81003; 82009; 82550; 82553; 82962; 83605; 83735; 83880; 84100; 84484; 85025; 85651; 86140; 87040; 87081; 87181; 93005; 93017; 93306; 93970; 94640; 94664; 94760; 96365; 96375; 99285; J1815; J7620

== ENCOUNTER 2018-07-29 23:55 | Inpatient (IN) | payer MEDICAID, MEDICARE ==
[~2018-07-29] VITALS: Ht 170.2 cm; Wt 103.9 kg
[~2018-07-29 23:55] MED LIST: ASPIRIN81 MG ORAL; LIPITOR20 MG ORAL; LOPRESSOR25 M1 ORAL; NORCO 5-325 TA1 EACH ORAL; NOVOLOG100 UNIT/4 SQ; NOVOLOG100 UNITS1 SUBQ; SUCRALFATE1 GM ORAL
--- NOTE | 2018-07-30 | NUR ---
ED Nurse Note: pt brought in by ambulance from [facility], c/o anxiety and increase in agitation and fall, per ems report, nursing staff at snf stated pt fell this morning and called 911 but pt refused to go to hospital, pt daughter persuaded pt to go to hospital but noted increase in anxiety. pt AA&ox3, skin warm and dry, resp even and unlabored on RA, noted o2sat 86%, pt started on Oxygen via 2 L/min via NC, vss, nsr on bread dumper, abd soft nontender obese, noted diaper, will cont monitor. ERMD notified regarding pt's o2sat.
[2018-07-30] MEDS ORDERED: ACETAMINOPHEN325 M1 ORAL (00:12)
[2018-07-30] MEDS ORDERED: XANAX0.25 MG ORAL (00:12)
[2018-07-30] MEDS ORDERED: DUONEB 0.5-3(2.53 ML HHN (00:12)
[2018-07-30] MEDS ORDERED: LORazepam Inj 2mg/ml 1ml IM ONE (00:15)
--- NOTE | 2018-07-30 00:30 | NUR ---
ED Nurse Note: report given to DARWIN Garnica and endorsed care.
[2018-07-30 00:36] VITALS: BP 155/91
[2018-07-30 00:36] LABS: APPEARANCE,URINE CLEAR; BILIRUBIN, URINE NEGATIVE (NEGATIVE); COLOR,URINE PALE YELLOW; GLUCOSE, URINE (UA) NEGATIVE (NEGATIVE); KETONES,URINE 1+ (NEGATIVE); LEUKOCYTE ESTERASE ,URINE NEGATIVE (NEGATIVE); NITRITE,URINE NEGATIVE (NEGATIVE); PH,URINE 7 (4.5-8.0); PROTEIN,URINE 1+ (NEGATIVE); UROBILINOGEN,URINE NORMAL MG/DL (0.0-1.0)
[2018-07-30 00:37] LABS: EOSINOPHILS % (AUTO) 3.5 % (0.0-3.0); HEMATOCRIT 37.2 % (37.0-47.0); HEMOGLOBIN 11.2 G/DL (12.0-16.0); LYMPHOCYTES % (AUTO) 22.4 % (20.0-45.0); MEAN CORPUSCULAR VOLUME 88 FL (80-99); MONOCYTES % (AUTO) 9.8 % (1.0-10.0); NEUTROPHILS % (AUTO) 61.3 % (45.0-75.0); PLATELET COUNT 184 K/UL (150-450); RED BLOOD COUNT 4.24 M/UL (4.20-5.40); RED CELL DISTRIBUTION WIDTH 13.3 % (11.6-14.8); WHITE BLOOD COUNT 5.6 K/UL (4.8-10.8)
[2018-07-30] MEDS ORDERED: LORazepam Inj 2mg/ml 1ml ONE (00:45)
[2018-07-30] MEDS ORDERED: LORazepam Inj 2mg/ml 1ml IV ONE (00:45)
[2018-07-30 00:46] LABS: ANION GAP 4 mmol/L (5-15); BLOOD UREA NITROGEN 17 mg/dL (7-18); CARBON DIOXIDE 39 MMOL/L (21-32); CHLORIDE 97 MMOL/L (98-107); CREATININE 0.9 MG/DL (0.55-1.30); POTASSIUM 3.7 MMOL/L (3.5-5.1); SODIUM 140 MMOL/L (136-145)
[2018-07-30 00:59] LABS: ALANINE AMINOTRANSFERASE 23 U/L (12-78); ALBUMIN 3.7 G/DL (3.4-5.0); ALBUMIN/GLOBULIN RATIO 0.9 (1.0-2.7); ALKALINE PHOSPHATASE 98 U/L (46-116); ASPARTATE AMINO TRANSFERASE 19 U/L (15-37); BILIRUBIN,TOTAL 0.6 MG/DL (0.2-1.0); CKMB 3.8 NG/ML (0.0-3.6); CREATINE KINASE 173 U/L (26-308)
--- NOTE | 2018-07-30 02:35 | NUR ---
ED Nurse Note: Patient was admited to Tele due to fall and increased aggitation. AAO x2, BP is 105/52 ER MD aware, other VSS at this time. All belongings were transfered with the patient, Patient was transfered by ACLS protocol.
--- NOTE | 2018-07-30 02:45 | Emergency Room Report ---
History of Present Illness General Chief Complaint: Behavioral Complaint Source: Patient, Medical Record, EMS Present Illness HPI 83-year-old female presents ED for evaluation. Brought in by EMS from [facility] facility. States that patient appeared increasingly paranoid and agitated today. EMS reported that the patient also fell. Nursing from facility called stated that there is no reported fall. Patient appears anxious and crying in triage refusing vitals. BP reported by EMS was markedly elevated. Denies chest pain or shortness of breath. Denies any pain. Denies SI or HI. Denies hearing voices. No other aggravating relieving factors. Denies any other associated symptoms Allergies: Coded Allergies: No Known Allergies (Unverified , 06/27/18) Patient History Past Medical History: DM, CAD, CHF, COPD Past Surgical History: none Pertinent Family History: none Social History: Denies: smoking, alcohol use, drug use Now: No Immunizations: UTD Reviewed Nursing Documentation: PMH: Agreed; PSxH: Agreed Nursing Documentation-PMH Past Medical History: No History, Except For Hx Cardiac Problems: Yes - LOBULAR PNA, GENERALIZED WEAKNESS, HYPOGLYCEMIA, ALZHEIMERS, CAD, CHF, Hx Hypertension: Yes Hx COPD: Yes Hx Diabetes: Yes Hx Cancer: No Hx Gastrointestinal Problems: No Hx Neurological Problems: No Review of Systems All Other Systems: negative except mentioned in HPI Physical Exam Vital Signs Date Time Temp Pulse Resp B/P (MAP) Pulse Ox O2 Delivery O2 Flow Rate FiO2 07/29/18 23:52 80 26 240/116 Room Air 07/30/18 00:36 2.0 07/30/18 00:36 98.1 86 Sp02 EP Interpretation: reviewed, normal General Appearance: alert, GCS 15, non-toxic, mild distress, obese Head: normocephalic, atraumatic Eyes: bilateral eye normal inspection, bilateral eye PERRL ENT: hearing grossly normal, normal pharynx, no angioedema, normal voice Neck: full range of motion, supple/symm/no masses Respiratory: chest non-tender, lungs clear, normal breath sounds, speaking full sentences Cardiovascular #1: regular rate, rhythm, no edema Cardiovascular #2: 2+ carotid (R), 2+ carotid (L), 2+ radial (R), 2+ radial (L) , 2+ dorsalis pedis (R), 2+ dorsalis pedis (L) Gastrointestinal: normal bowel sounds, non tender, soft, non-distended, no guarding, no rebound Rectal: deferred Genitourinary: normal inspection, no CVA tenderness Musculoskeletal: back normal, gait/station normal, normal range of motion, non- tender Neurologic: alert, oriented x3, responsive, motor strength/tone normal, sensory intact, speech normal Psychiatric: no suicidal/homicidal ideation, anxious, other - paranoid Reflexes: 3+ bicep (R), 3+ bicep (L), 3+ tricep (R), 3+ tricep (L), 3+ knee (R) , 3+ knee (L) Skin: normal color, no rash, warm/dry, well hydrated Lymphatic: no adenopathy Medical Decision Making Diagnostic Impression: Primary Impression: Hypertensive urgency Additional Impressions: Anxiety Elevated troponin ER Course Hospital Course 83-year-old female presents ED complaining of elevated BP, increased anxiety/ paranoia Differential diagnoses include: PR/unstable angina, psychosis, hypertensive urgency Clinical course Patient placed on stretcher. on director of cardiac rehabilitation. After initial history and physical I ordered labs, EKG, chest x-ray, ativan labs reviewed- no leukocytosis, hemoglobin/hematocrit stable, electrolytes okay , troponins 0.085 Chest x-ray- interstitial congestion EKG - NSR, no acute ischemic changes interpreted by me Patient denies chest pain. Given aspirin. Case discussed with Dr. Alfaro and he agreed to accept the patient to his service for further care and support I. I feel this is a highly complex case requiring extensive working including EKG/Rhythm strip, Xray/CT/US, Blood/urine lab work, repeat exams while in ED, and administration of strong opiates/narcotics for pain control, admission to hospital or close patient follow up. Diagnosis - hypertensive urgency, anxiety, elevated troponin admitted to telemetry in serious condition Labs Test 07/30/18 00:24 White Blood Count 5.6 K/UL (4.8-10.8) Red Blood Count 4.24 M/UL (4.20-5.40) Hemoglobin 11.2 G/DL (12.0-16.0) Hematocrit 37.2 % (37.0-47.0) Mean Corpuscular Volume 88 FL (80-99) Mean Corpuscular Hemoglobin 26.5 PG (27.0-31.0) Mean Corpuscular Hemoglobin Concent 30.2 G/DL (32.0-36.0) Red Cell Distribution Width 13.3 % (11.6-14.8) Platelet Count 184 K/UL (150-450) Mean Platelet Volume 7.4 FL (6.5-10.1) Neutrophils (%) (Auto) 61.3 % (45.0-75.0) Lymphocytes (%) (Auto) 22.4 % (20.0-45.0) Monocytes (%) (Auto) 9.8 % (1.0-10.0) Eosinophils (%) (Auto) 3.5 % (0.0-3.0) Basophils (%) (Auto) 3.0 % (0.0-2.0) Urine Color Pale yellow Urine Appearance Clear Urine pH 7 (4.5-8.0) Urine Specific [place] 1.010 (1.005-1.035) Urine Protein 1+ (NEGATIVE) Urine Glucose (UA) Negative (NEGATIVE) Urine Ketones 1+ (NEGATIVE) Urine Blood Negative (NEGATIVE) Urine Nitrite Negative (NEGATIVE) Urine Bilirubin Negative (NEGATIVE) Urine Urobilinogen Normal MG/DL (0.0-1.0) Urine Leukocyte Esterase Negative (NEGATIVE) Urine RBC 0-2 /HPF (0 - 2) Urine WBC 0-2 /HPF (0 - 2) Urine Squamous Epithelial Cells Occasional /LPF Urine Bacteria Occasional /HPF (NONE) Sodium Level 140 MMOL/L (136-145) Potassium Level 3.7 MMOL/L (3.5-5.1) Chloride Level 97 MMOL/L (98-107) Carbon Dioxide Level 39 MMOL/L (21-32) Anion Gap 4 mmol/L (5-15) Blood Urea Nitrogen 17 mg/dL (7-18) Creatinine 0.9 MG/DL (0.55-1.30) Estimat Glomerular Filtration Rate mL/min (>60) Glucose Level 141 MG/DL (74-106) Calcium Level 10.0 MG/DL (8.5-10.1) Total Bilirubin 0.6 MG/DL (0.2-1.0) Aspartate Amino Transf (AST/SGOT) 19 U/L (15-37) Alanine Aminotransferase (ALT/SGPT) 23 U/L (12-78) Alkaline Phosphatase 98 U/L (46-116) Total Creatine Kinase 173 U/L (26-308) Creatine Kinase MB 3.8 NG/ML (0.0-3.6) Creatine Kinase MB Relative Index 2.1 Troponin I 0.085 ng/mL (0.000-0.056) Total Protein 7.7 G/DL (6.4-8.2) Albumin 3.7 G/DL (3.4-5.0) Globulin 4.0 g/dL Albumin/Globulin Ratio 0.9 (1.0-2.7) Urine Opiates Screen Negative (NEGATIVE) Urine Barbiturates Screen Negative (NEGATIVE) Phencyclidine (PCP) Screen Negative (NEGATIVE) Urine Amphetamines Screen Negative (NEGATIVE) Urine Benzodiazepines Screen Negative (NEGATIVE) Urine Cocaine Screen Negative (NEGATIVE) Urine Marijuana (THC) Screen Negative (NEGATIVE) EKG Diagnostic Results Rate: normal Rhythm: NSR ST Segments: no acute changes ASA given to the pt in ED: Yes Rhythm Strip Diag. Results EP Interpretation: yes Rhythm: NSR, no PVC's, no ectopy Chest X-Ray Diagnostic Results Chest X-Ray Diagnostic Results : Chest X-Ray Ordered: Yes # of Views/Limited/Complete: 1 View Indication: Other EP Interpretation: Yes Interpretation: no pneumothorax, other - interstitial congestion Impression: Other Electronically Signed by: Electronically signed by Smith Moreno MD Last Vital Signs Date Time Temp Pulse Resp B/P (MAP) Pulse Ox O2 Delivery O2 Flow Rate FiO2 07/30/18 00:36 98.1 81 18 155/91 86 Room Air 07/30/18 00:36 2.0 Status: improved Disposition: ADMITTED INPATIENT Condition: Serious Referrals: Nahun Alfaro MD (PCP) Smith Moreno MD Jul 30, 2018 02:45
[2018-07-30 02:50] VITALS: BP 104/61
--- NOTE | 2018-07-30 02:50 | NUR ---
NURSE NOTES: Received report from DARWIN Batista and brought in by pk GRANADOS, via gurney from ED. Patient is asleep showing no signs of acute distress. Respiration even and non labored on 2L O2 nc. No SOB noted. Bed alarm on, wheels locked. Call light within reach. monitor worker showing NSR. All needs attended and met. Called Dr. Alfaro and left a message for admission order. Awaiting call back.
[2018-07-30 04:00] VITALS: BP 106/49
[2018-07-30] MEDS ORDERED: LORazepam 0.5mg tab ORAL PRN (07:00)
[2018-07-30] MEDS ORDERED: ALPRAZolam 0.25mg tab ORAL PRN (07:00)
[2018-07-30] MEDS ORDERED: Albuterol/Ipratropium 3ml neb HHN PRN (07:00)
[2018-07-30] MEDS ORDERED: HYDROcodone/Acetamin 5/325 tab ORAL PRN (07:00)
--- NOTE | 2018-07-30 07:15 | NUR ---
HAND-OFF: Report given to DARWIN Gibbs.
--- NOTE | 2018-07-30 07:25 | NUR ---
NURSE NOTES: Pt received from DARWIN Adhikari currently resting in bed, asleep and on 2L NC. Pt was saturating at 85%, increased NC to 4L which increased saturation to 93%, will continue to monitor pt. No s/s of SOB. IV site asymptomatic and patent. Bed in lowest position, call light and belongings within reach.
[2018-07-30 08:00] VITALS: BP 114/62
[2018-07-30] MEDS: Sucralfate 1gm tab ORAL SCH ×4 (09:00→21:00)
[2018-07-30] MEDS: Heparin 5000 units/ml inj SUBQ SCH ×2 (09:00→21:00)
[2018-07-30] MEDS: Metoprolol 25mg tab ORAL SCH ×2 (09:00→21:00)
[2018-07-30] MEDS: Aspirin Baby 81mg ORAL SCH (09:00)
--- NOTE | 2018-07-30 09:16 | NUR ---
CASE MANAGEMENT:REVIEW 83 YR OLD FEMALE BIBA FROM [facility] CC: FALL. AMS...REFUSING CARE SI: HYPERTENSIVE URGENCY. ANXIETY ELEVATED TROPONIN 98.1 80 26 240/116 86% ON RA TROPONIN(+) 0.085 IS: PLACED ON 2L /NC 500CC NS BOLUS IV ATIVAN X1 IM ATIVAN X1 ASA PO CHEST XRAY : TO TELEMETRY IS: ASA PO QD LOPRESSOR PO Q12 HEPARIN SQ Q12 INTERQUAL CRITERIA MET
--- NOTE | 2018-07-30 10:19 | Consultation ---
History of Present Illness General Date patient seen: Jul 30, 2018 Chief Complaint: hypertensive emergency Present Illness HPI 83-year-old female with hx of DM, CAD, CHF, COPD presented from nursing to ED for evaluation of increasingly paranoid and agitated behavior. Patient appeared anxious in ER and was crying. Her SBP was 240 in ER . She admitted for further evaluation. Pt is comfortably resting now. Allergies: Coded Allergies: No Known Allergies (Unverified , 06/27/18) Medication History Scheduled Aspirin* (Aspirin*), 81 MG ORAL DAILY Atorvastatin Calcium* (Lipitor*), 20 MG ORAL BEDTIME Insulin Aspart (Novolog), 100 UNIT SQ AC+HS, (Reported) Insulin Aspart (Novolog Flexpen), 0 UNITS SUBQ BEFORE MEALS AND HS Metoprolol Tartrate (Metoprolol Tartrate), 25 MG ORAL EVERY 12 HOURS Sucralfate* (Carafate*), 1 GM ORAL FOUR TIMES A DAY Scheduled PRN Acetaminophen* (Acetaminophen 325MG Tablet*), 650 MG ORAL Q6H PRN for Mild Pain/ Temp > 100.5, (Reported) Alprazolam* (Xanax*), 0.25 MG ORAL Q6HR PRN for Agitation, (Reported) Hydrocodone Bit/Acetaminophen 5-325* ([place] 5-325*), 1 TAB ORAL Q6H PRN Ipratropium/Albuterol Sulfate (DuoNeb 0.5-3(2.5)mg/3ml), 3 ML HHN Q4HR PRN for Shortness of Breath, (Reported) Patient History Healthcare decision maker Resuscitation status Full Code Advanced Directive on File Past Medical/Surgical History Past Medical/Surgical History: (1) GERD (gastroesophageal reflux disease) (2) Dementia (3) COPD (chronic obstructive pulmonary disease) (4) HTN (hypertension) (5) Diabetes mellitus (6) Morbid obesity Review of Systems All Other Systems: negative except mentioned in HPI Physical Exam General Appearance: WD/WN, no apparent distress Lines, tubes and drains: peripheral HEENT: normocephalic, atraumatic Neck: non-tender, normal alignment Respiratory/Chest: chest wall non-tender, lungs clear, normal breath sounds Cardiovascular/Chest: normal peripheral pulses, normal rate Genitourinary/Rectal: normal genital exam Extremities: normal range of motion Skin Exam: normal pigmentation Last 24 Hour Vital Signs Date Time Temp Pulse Resp B/P (MAP) Pulse Ox O2 Delivery O2 Flow Rate FiO2 07/30/18 04:00 96.7 62 19 106/49 (68) 95 07/30/18 04:00 61 07/30/18 03:00 Nasal Cannula 2.0 07/30/18 02:50 86 07/30/18 02:50 96.9 76 22 104/61 (75) 95 07/30/18 02:35 98.1 81 18 155/91 86 Room Air 2.0 07/30/18 00:36 98.1 81 18 155/91 86 Room Air 07/30/18 00:36 80 18 Nasal Cannula 2.0 07/29/18 23:52 80 26 240/116 Room Air Laboratory Tests Test 07/30/18 00:24 White Blood Count 5.6 K/UL (4.8-10.8) Red Blood Count 4.24 M/UL (4.20-5.40) Hemoglobin 11.2 G/DL (12.0-16.0) L Hematocrit 37.2 % (37.0-47.0) Mean Corpuscular Volume 88 FL (80-99) Mean Corpuscular Hemoglobin 26.5 PG (27.0-31.0) L Mean Corpuscular Hemoglobin Concent 30.2 G/DL (32.0-36.0) L Red Cell Distribution Width 13.3 % (11.6-14.8) Platelet Count 184 K/UL (150-450) Mean Platelet Volume 7.4 FL (6.5-10.1) Neutrophils (%) (Auto) 61.3 % (45.0-75.0) Lymphocytes (%) (Auto) 22.4 % (20.0-45.0) Monocytes (%) (Auto) 9.8 % (1.0-10.0) Eosinophils (%) (Auto) 3.5 % (0.0-3.0) H Basophils (%) (Auto) 3.0 % (0.0-2.0) H Urine Color Pale yellow Urine Appearance Clear Urine pH 7 (4.5-8.0) Urine Specific [place] 1.010 (1.005-1.035) Urine Protein 1+ (NEGATIVE) H Urine Glucose (UA) Negative (NEGATIVE) Urine Ketones 1+ (NEGATIVE) H Urine Blood Negative (NEGATIVE) Urine Nitrite Negative (NEGATIVE) Urine Bilirubin Negative (NEGATIVE) Urine Urobilinogen Normal MG/DL (0.0-1.0) Urine Leukocyte Esterase Negative (NEGATIVE) Urine RBC 0-2 /HPF (0 - 2) Urine WBC 0-2 /HPF (0 - 2) Urine Squamous Epithelial Cells Occasional /LPF Urine Bacteria Occasional /HPF (NONE) Sodium Level 140 MMOL/L (136-145) Potassium Level 3.7 MMOL/L (3.5-5.1) Chloride Level 97 MMOL/L (98-107) L Carbon Dioxide Level 39 MMOL/L (21-32) H Anion Gap 4 mmol/L (5-15) L Blood Urea Nitrogen 17 mg/dL (7-18) Creatinine 0.9 MG/DL (0.55-1.30) Estimat Glomerular Filtration Rate mL/min (>60) Glucose Level 141 MG/DL (74-106) H Calcium Level 10.0 MG/DL (8.5-10.1) Total Bilirubin 0.6 MG/DL (0.2-1.0) Aspartate Amino Transf (AST/SGOT) 19 U/L (15-37) Alanine Aminotransferase (ALT/SGPT) 23 U/L (12-78) Alkaline Phosphatase 98 U/L (46-116) Total Creatine Kinase 173 U/L (26-308) Creatine Kinase MB 3.8 NG/ML (0.0-3.6) H Creatine Kinase MB Relative Index 2.1 Troponin I 0.085 ng/mL (0.000-0.056) Total Protein 7.7 G/DL (6.4-8.2) Albumin 3.7 G/DL (3.4-5.0) Globulin 4.0 g/dL Albumin/Globulin Ratio 0.9 (1.0-2.7) L Urine Opiates Screen Negative (NEGATIVE) Urine Barbiturates Screen Negative (NEGATIVE) Phencyclidine (PCP) Screen Negative (NEGATIVE) Urine Amphetamines Screen Negative (NEGATIVE) Urine Benzodiazepines Screen Negative (NEGATIVE) Urine Cocaine Screen Negative (NEGATIVE) Urine Marijuana (THC) Screen Negative (NEGATIVE) Microbiology Date/Time Source Procedure Growth Status 07/30/18 00:24 Rectum Received Height (Feet): 5 Height (Inches): 7.00 Weight (Pounds): 226 Medications Current Medications Medications (Trade) Dose Ordered Sig/Deidre Route PRN Reason Start Time Stop Time Status Last Admin Dose Admin Acetaminophen (Tylenol) 650 mg Q6H PRN ORAL Mild Pain/Temp > 100.5 07/30/18 07:00 08/29/18 06:59 Acetaminophen/ Hydrocodone Bitart ([place] 5/325) 1 tab Q6H PRN ORAL For Pain 4-10 07/30/18 07:00 08/06/18 06:59 Albuterol/ Ipratropium (Albuterol/ Ipratropium) 3 ml Q4H PRN HHN Shortness of Breath 07/30/18 07:00 08/04/18 06:59 Alprazolam (Xanax) 0.25 mg Q6H PRN ORAL Agitation 07/30/18 07:00 08/06/18 06:59 Aspirin (ASA) 81 mg DAILY ORAL 07/30/18 09:00 08/29/18 08:59 Atorvastatin Calcium (Lipitor) 20 mg BEDTIME ORAL 07/30/18 21:00 08/29/18 20:59 Dextrose (Dextrose 50%) 25 ml Q30M PRN IV Hypoglycemia 07/30/18 07:00 08/29/18 06:59 Dextrose (Dextrose 50%) 50 ml Q30M PRN IV Hypoglycemia 07/30/18 07:00 08/29/18 06:59 Heparin Sodium (Porcine) (Heparin 5000 units/ml) 5,000 units EVERY 12 HOURS SUBQ 07/30/18 09:00 08/29/18 08:59 Insulin Aspart (NovoLOG) BEFORE MEALS AND HS SUBQ 07/30/18 11:30 08/29/18 11:29 Lorazepam (Ativan) 0.5 mg Q6H PRN ORAL For Anxiety 07/30/18 07:00 08/06/18 06:59 Metoprolol Tartrate (Lopressor) 25 mg EVERY 12 HOURS ORAL 07/30/18 09:00 08/29/18 08:59 Sucralfate (Carafate) 1 gm FOUR TIMES A DAY ORAL 07/30/18 09:00 08/29/18 08:59 Assessment/Plan Problem List: (1) Hypertensive urgency ICD Codes: I16.0 - Hypertensive urgency SNOMED: 484846501 (2) Elevated troponin ICD Codes: R74.8 - Abnormal levels of other serum enzymes SNOMED: 058532160, 863657084, 044406414 (3) COPD (chronic obstructive pulmonary disease) ICD Codes: J44.9 - Chronic obstructive pulmonary disease, unspecified SNOMED: 45908653 (4) Diabetes mellitus ICD Codes: E11.9 - Type 2 diabetes mellitus without complications SNOMED: 48934776 (5) Dementia ICD Codes: F03.90 - Unspecified dementia without behavioral disturbance SNOMED: 46961739 (6) HTN (hypertension) ICD Codes: I10 - Essential (primary) hypertension SNOMED: 45418355 (7) Morbid obesity ICD Codes: E66.01 - Morbid (severe) obesity due to excess calories SNOMED: 515916861 Assessment/Plan: serial ekg, troponin, echo monitor bp symptomatic treatment Seroquel for agitation monitor electrolytes dvt prophylaxis Cardiology evaluation. Tawanna Watkins MD Jul 30, 2018 10:19
--- NOTE | 2018-07-30 10:40 | Diagnostic Imaging Report ---
Indication: Chest pain Comparison: July 02, 2018 A single view chest radiograph was obtained. Findings: Interstitial edema and vascular prominence and cardiomegaly have developed. There is a suspected right pleural effusion. IMPRESSION: Congestive heart failure
[2018-07-30] MEDS: NovoLOG Insulin Flexpen SUBQ SCH ×3 (11:30→21:00)
[2018-07-30] MEDS ORDERED: NovoLOG Insulin Flexpen SUBQ SCH (11:30)
[2018-07-30 12:00] VITALS: BP 142/65
--- NOTE | 2018-07-30 15:55 | Cardiology Report ---
APPROVED REPORT EKG Measurement Heart [id number] DC [id number] Sinus rhythm with premature supraventricular complexes Possible Left atrial enlargement Nonspecific T wave abnormality Abnormal ECG
[2018-07-30 16:00] VITALS: BP 140/63
--- NOTE | 2018-07-30 17:48 | NUR ---
NURSE NOTES: Pt's daughter arrived to visit her and the patient became upset, crying and stating "No, don't leave me. You're going to leave me and never come back." Pt's daughter reassured pt that she will come visit. RN reoriented pt of surroundings and situation. Pt became upset and started crying, holding onto her daughter's hand and refused 1800 Sucralfate scheduled - "No, I'm not taking it. My daughter is going to take me home. I'm going home." Daughter reassured pt and said that she will stay to calm down her mother.
--- NOTE | 2018-07-30 19:15 | NUR ---
HAND-OFF: Report given to DARWIN Lyle and DARWIN Nelson. No acute s/s of distress noted.
--- NOTE | 2018-07-30 19:20 | NUR ---
NURSE NOTES: Report received from DARWIN Gibbs. Pt is confused and scared of staff. Respirations are even and unlabored on room air. No pain/SOB noted. Bed is at lowest position, brakes engaged, siderails x2, bed alarm on, and call light within reach. Pt is in stable condition, but refusing cardiac rn. Will continue to monitor.
--- NOTE | 2018-07-30 19:44 | History & Physical ---
History and Physical History & Physicial Dictated for Int med-DR Alfaro no. [id number]. Aldair Card MD Jul 30, 2018 19:44
[2018-07-30] MEDS ORDERED: Atorvastatin 20mg tab ORAL SCH (21:00)
--- NOTE | 2018-07-30 22:20 | Initial Psychiatric Evaluation ---
Psychiatry Consultation Psychiatry Consultation Chief Complaint: Behavioral Complaint History of Present Illness: 83-year-old female, who presents with a chief complaint of altered mental status. the pt was agitated and confused. the pt has been noncompliant with her meds . the pt is unable to understand and process info. the pt is easily agitated and doesn't follow direction. Allergies: Coded Allergies: No Known Allergies (Unverified , 06/27/18) Past Psychiatric History: dementia anxiety do Medical History: see problem list Substance Abuse History: none Medication History Scheduled Aspirin* (Aspirin*), 81 MG ORAL DAILY Atorvastatin Calcium* (Lipitor*), 20 MG ORAL BEDTIME Insulin Aspart (Novolog), 100 UNIT SQ AC+HS, (Reported) Insulin Aspart (Novolog Flexpen), 0 UNITS SUBQ BEFORE MEALS AND HS Metoprolol Tartrate (Metoprolol Tartrate), 25 MG ORAL EVERY 12 HOURS Sucralfate* (Carafate*), 1 GM ORAL FOUR TIMES A DAY Scheduled PRN Acetaminophen* (Acetaminophen 325MG Tablet*), 650 MG ORAL Q6H PRN for Mild Pain/ Temp > 100.5, (Reported) Alprazolam* (Xanax*), 0.25 MG ORAL Q6HR PRN for Agitation, (Reported) Hydrocodone Bit/Acetaminophen 5-325* ([place] 5-325*), 1 TAB ORAL Q6H PRN Ipratropium/Albuterol Sulfate (DuoNeb 0.5-3(2.5)mg/3ml), 3 ML HHN Q4HR PRN for Shortness of Breath, (Reported) Patient History Limited by: medical condition History Provided By: Medical Record, PMD Objective Data Height (Feet): 5 Height (Inches): 7.00 Weight (Pounds): 226 Appearance: no abnormalities noted Behavior Mannerisms: good eye contact Affect: blunted Mood: irritable, anxious, agitated Speech: clear Thought Process: tangential, confusion Thought Content: delusions (specify) Suicidal Ideation: not present Assessment/Plan Problem List: (1) Dementia ICD Codes: F03.90 - Unspecified dementia without behavioral disturbance SNOMED: 58187079 Assessment/Plan: risperdal ativan im haldol im the pt lacks capacity to make decisions Diagnosis [place] I: dementia with behavioral dist Beverley Limon MD Jul 30, 2018 22:20
--- NOTE | 2018-07-30 22:21 | NUR ---
NURSE NOTES: Pt is very anxious and scared of all staff. Pt cowers down whenever staff gets within five feet from her. She keeps saying she doesnt want anything from us and doesn't want us to get near her. She is refusing computer operations supervisor, VS, assessment, and medications. Left message with Dr. Alfaro regarding pt refusing care; awaiting response.
--- NOTE | 2018-07-30 22:33 | NUR ---
NURSE NOTES: Dr. Alfaro aware of patient refusing care.
--- NOTE | 2018-07-31 04:15 | History and Physical Report ---
DATE OF ADMISSION: 07/30/2018 CHIEF COMPLAINT: The patient is an 83-year-old female, who presents with a chief complaint of altered mental status. HISTORY OF PRESENT ILLNESS: The patient is a resident of [facility]. The patient was admitted to [facility] from 06/27/2018 to 07/03/2018. Please see history and physical and discharge summary dictated at that time. The patient was discharged to [facility]. According to staff at [facility], the patient has been increasingly agitated over the last 24 hours. The patient was increasingly paranoid. The patient also had an unwitnessed fall. The patient presented to [facility] emergency room. The patient is admitted for altered mental status to rule out hypoglycemia versus acute cerebrovascular accident. REVIEW OF SYSTEMS: Unable to assess secondary to the patient's mental status. PAST MEDICAL HISTORY: Significant for, 1. Diabetes type 2 2. Hypertension. 3. Coronary artery disease, status post myocardial infarction. 4. Chronic obstructive pulmonary disease. 5. Gastroesophageal reflux disease. 6. Alzheimer's dementia. PAST SURGICAL HISTORY: Significant for cholecystectomy. CURRENT MEDICATIONS: 1. Tylenol 650 mg p.o. q.6 hours p.r.n. 2. Xanax 0.25 mg p.o. q.6 hours p.r.n. 3. Aspirin 81 mg p.o. daily. 4. Lipitor 20 mg p.o. at bedtime. 5. [place] 5/325 mg one tablet p.o. q.6 h. p.r.n. 6. NovoLog sliding scale. 7. DuoNeb nebulized q.4 hours p.r.n. 8. Metoprolol 25 mg p.o. twice daily. 9. Carafate 1 g p.o. 4 times daily. ALLERGIES: No known drug allergies. SOCIAL HISTORY: The patient is single and is a resident of [facility]. The patient denies tobacco or alcohol use. PHYSICAL EXAMINATION: VITAL SIGNS: Temperature 98.1, respirations 18, pulse 80, and blood pressure 155/91. GENERAL: The patient is a well-developed and well-nourished slightly obese female, in no apparent distress. HEENT: Eyes, pupils are equal and responsive to light and accommodation. Extraocular movements are intact. NECK: Supple without lymphadenopathy. CHEST: Lungs are clear to auscultation bilaterally without wheezes or rales. CARDIOVASCULAR: Regular rhythm and rate. S1 and S2 are normal without murmurs, rubs, or gallops. ABDOMEN: Soft, nontender, and nondistended. Positive bowel sounds. No evidence of hepatosplenomegaly. Currently, no rebound or guarding noted. EXTREMITIES: Negative for clubbing, cyanosis, or edema. RECTAL/GENITAL: Refused. NEUROLOGIC: Cranial nerves II through XII are grossly intact without focal deficits. Motor strength is 5/5 bilaterally. Deep tendon reflexes are 2+ plantar. LABORATORY STUDIES: WBC 5.6, hemoglobin 11.2, hematocrit 37.2, and platelets 184,000. Sodium 140, potassium 3.7, chloride 97, CO2 39, BUN 17, creatinine 0.9, and glucose 141. Troponin elevated at 0.085. Chest x-ray was reported as increased interstitial edema and vascular prominence consistent with congestive heart failure. ASSESSMENT: This is an 83-year-old female. 1. Altered mental status. 2. Congestive heart failure. 3. Diabetes type 2. 4. Hypertension. 5. Coronary artery disease. 6. Chronic obstructive pulmonary disease. 7. Gastroesophageal reflux disease. 8. Alzheimer's dementia. TREATMENT: 1. Altered mental status. This may be secondary to congestive heart failure as above. 2. Congestive heart failure. Cardiology consultation has been obtained with Dr. Henry Wright. The patient has been placed empirically on . An echocardiogram is pending. 3. Diabetes type 2. A NovoLog sliding scale has been instituted. 4. Coronary artery disease. Continue aspirin as above. 5. Chronic obstructive pulmonary disease. A Pulmonary consultation obtained with Dr. Tawanna Watkins. Continue DuoNebs as above. 6. Gastroesophageal reflux disease. The patient has been started on Protonix. Continue Carafate as above. 7. Alzheimer's dementia. Aldair Card M.D. DR: SERGE JOB#: [id number] CC:
[2018-07-31] MEDS: NovoLOG Insulin Flexpen SUBQ SCH ×4 (05:32→20:21)
--- NOTE | 2018-07-31 07:14 | NUR ---
HAND-OFF: Report given to DARWIN Muñoz. Plan of care endorsed, patient in stable condition.
--- NOTE | 2018-07-31 07:15 | NUR ---
NURSE NOTES: Report received from Dariela GRANADOS.Pt awake,alert confused ,sitting up on side of bed ,noted no resp dsitress no signs of pain or discomfort SR on the monitor, IV site to LAC intact,skin warm and dry,SR up x2 HOB elevated,bed lock in lowest position,will continue to monitor pt.
[2018-07-31] MEDS: Sucralfate 1gm tab ORAL SCH ×4 (09:00→20:14)
[2018-07-31] MEDS: Aspirin Baby 81mg ORAL SCH (09:00)
[2018-07-31] MEDS: Heparin 5000 units/ml inj SUBQ SCH ×2 (09:00→20:15)
[2018-07-31] MEDS: Metoprolol 25mg tab ORAL SCH (09:00)
--- NOTE | 2018-07-31 09:00 | NUR ---
NURSE NOTES: Pt very resistive to care ,uncooperative,refuses lab draws,refuses medication,refused bed bath,pt incontinent,smells of urine.
--- NOTE | 2018-07-31 11:30 | NUR ---
NURSE NOTES: Dr Watkins here ,informed re pt's refusing medication and uncooperativeness,ordered to transfer pt to med-surg.
--- NOTE | 2018-07-31 11:32 | Pulmonology Progress Note ---
Assessment/Plan Problems: (1) Hypertensive urgency (2) Elevated troponin (3) COPD (chronic obstructive pulmonary disease) (4) Diabetes mellitus (5) Dementia (6) HTN (hypertension) (7) Morbid obesity Assessment/Plan refusing all meds start clonidine patch for HTN, refusing oral meds Psych prescribed Hold and Resperidol med/surg Subjective ROS Limited/Unobtainable: No Constitutional: Reports: no symptoms HEENT: Repors: no symptoms Respiratory: Reports: no symptoms Allergies: Coded Allergies: No Known Allergies (Unverified , 06/27/18) Objective Last 24 Hour Vital Signs Date Time Temp Pulse Resp B/P (MAP) Pulse Ox O2 Delivery O2 Flow Rate FiO2 07/31/18 09:00 87 140/63 07/31/18 08:16 Nasal Cannula 4.0 36 07/31/18 08:16 97 Nasal Cannula 4.0 36 07/31/18 08:16 87 18 Nasal Cannula 4.0 36 07/31/18 04:00 69 07/31/18 00:00 79 07/30/18 21:00 Room Air 4.0 07/30/18 19:56 97 Nasal Cannula 4.0 36 07/30/18 19:56 Nasal Cannula 4.0 36 07/30/18 19:11 82 07/30/18 16:00 93 07/30/18 16:00 96.7 94 20 140/63 (88) 96 07/30/18 12:00 98.0 84 20 142/65 (90) 96 07/30/18 12:00 84 Intake and Output 07/30/18 07/31/18 18:59 06:59 Intake Total 360 ml Output Total 700 ml Balance -340 ml Intake Oral 360 ml Output Urine Total 700 ml # Voids 2 General Appearance: WD/WN HEENT: normocephalic, atraumatic Respiratory/Chest: chest wall non-tender, lungs clear Breasts: no masses Cardiovascular: regular rhythm Abdomen: normal bowel sounds, soft, non tender Genitourinary: normal external genitalia 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 Lymphatic: no neck adenopathy Microbiology Date/Time Source Procedure Growth Status 07/30/18 00:24 Rectum Received Current Medications Medications (Trade) Dose Ordered Sig/Deidre Route PRN Reason Start Time Stop Time Status Last Admin Dose Admin Acetaminophen (Tylenol) 650 mg Q6H PRN ORAL Mild Pain/Temp > 100.5 07/30/18 07:00 08/29/18 06:59 Acetaminophen/ Hydrocodone Bitart ([place] 5/325) 1 tab Q6H PRN ORAL For Pain 4-10 07/30/18 07:00 08/06/18 06:59 Albuterol/ Ipratropium (Albuterol/ Ipratropium) 3 ml Q4H PRN HHN Shortness of Breath 07/30/18 07:00 08/04/18 06:59 Aspirin (ASA) 81 mg DAILY ORAL 07/30/18 09:00 08/29/18 08:59 Atorvastatin Calcium (Lipitor) 20 mg BEDTIME ORAL 07/30/18 21:00 08/29/18 20:59 Clonidine HCl (Catapres TTS-1) 1 patch QWEEK TDERMAL 07/31/18 11:30 08/30/18 11:29 UNV Dextrose (Dextrose 50%) 25 ml Q30M PRN IV Hypoglycemia 07/30/18 07:00 08/29/18 06:59 Dextrose (Dextrose 50%) 50 ml Q30M PRN IV Hypoglycemia 07/30/18 07:00 08/29/18 06:59 Haloperidol Lactate (Haldol) 5 mg Q6H PRN IM Agitation 08/01/18 08:00 08/31/18 07:59 Heparin Sodium (Porcine) (Heparin 5000 units/ml) 5,000 units EVERY 12 HOURS SUBQ 07/30/18 09:00 08/29/18 08:59 Insulin Aspart (NovoLOG) BEFORE MEALS AND HS SUBQ 07/30/18 11:30 08/29/18 11:29 Lorazepam (Ativan) 0.5 mg Q6H PRN ORAL For Anxiety 07/30/18 07:00 08/06/18 06:59 Metoprolol Tartrate (Lopressor) 25 mg EVERY 12 HOURS ORAL 07/30/18 09:00 08/29/18 08:59 Risperidone (RisperDAL) 1 mg BID ORAL 07/31/18 09:00 08/30/18 08:59 Sucralfate (Carafate) 1 gm FOUR TIMES A DAY ORAL 07/30/18 09:00 08/29/18 08:59 07/30/18 14:01 Tawanna Watkins MD July 31, 2018 11:32
--- NOTE | 2018-07-31 11:49 | Internal Med Progress Note ---
Subjective Date of Service: July 31, 2018 Physician Name Aldair Card Attending Physician Nahun Alfaro MD Current Medications Medications (Trade) Dose Ordered Sig/Deidre Route PRN Reason Start Time Stop Time Status Last Admin Dose Admin Acetaminophen (Tylenol) 650 mg Q6H PRN ORAL Mild Pain/Temp > 100.5 07/30/18 07:00 08/29/18 06:59 Acetaminophen/ Hydrocodone Bitart ([place] 5/325) 1 tab Q6H PRN ORAL For Pain 4-07/30/18 07:00 08/06/18 06:59 Albuterol/ Ipratropium (Albuterol/ Ipratropium) 3 ml Q4H PRN HHN Shortness of Breath 07/30/18 07:00 08/04/18 06:59 Clonidine HCl (Catapres TTS-1) 1 patch QWEEK TDERMAL 07/31/18 13:00 08/30/18 12:59 Dextrose (Dextrose 50%) 25 ml Q30M PRN IV Hypoglycemia 07/30/18 07:00 08/29/18 06:59 Dextrose (Dextrose 50%) 50 ml Q30M PRN IV Hypoglycemia 07/30/18 07:00 08/29/18 06:59 Haloperidol Lactate (Haldol) 5 mg Q6H PRN IM Agitation 08/01/18 08:00 08/31/18 07:59 Heparin Sodium (Porcine) (Heparin 5000 units/ml) 5,000 units EVERY 12 HOURS SUBQ 07/30/18 09:00 08/29/18 08:59 Insulin Aspart (NovoLOG) BEFORE MEALS AND HS SUBQ 07/30/18 11:30 08/29/18 11:29 Lorazepam (Ativan) 0.5 mg Q6H PRN ORAL For Anxiety 07/30/18 07:00 08/06/18 06:59 Risperidone (RisperDAL) 1 mg BID ORAL 07/31/18 09:00 08/30/18 08:59 Sucralfate (Carafate) 1 gm FOUR TIMES A DAY ORAL 07/30/18 09:00 08/29/18 08:59 07/30/18 14:01 Allergies: Coded Allergies: No Known Allergies (Unverified , 06/27/18) ROS Limited/Unobtainable: No Constitutional: Reports: no symptoms HEENT: Reports: no symptoms Cardiovascular: Reports: no symptoms Respiratory: Reports: no symptoms Gastrointestinal/Abdominal: Reports: no symptoms Genitourinary: Reports: no symptoms Neurologic/Psychiatric: Reports: no symptoms Subjective 83 YO F admitted with altered mental status. Now CHF. Cover for Int Med-Dr Alfaro Objective Last Vital Signs Date Time Temp Pulse Resp B/P (MAP) Pulse Ox O2 Delivery O2 Flow Rate FiO2 07/31/18 09:00 87 140/63 07/31/18 08:16 Nasal Cannula 4.0 36 07/31/18 08:16 97 07/31/18 08:16 18 07/30/18 16:00 96.7 Microbiology Date/Time Source Procedure Growth Status 07/30/18 00:24 Rectum Received Intake and Output 07/30/18 07/31/18 18:59 06:59 Intake Total 360 ml Output Total 700 ml Balance -340 ml Intake Oral 360 ml Output Urine Total 700 ml # Voids 2 Objective PHYSICAL EXAMINATION: GENERAL: The patient is a well-developed and well-nourished slightly obese female, in no apparent distress. HEENT: Eyes, pupils are equal and responsive to light and accommodation. Extraocular movements are intact. NECK: Supple without lymphadenopathy. CHEST: Lungs are clear to auscultation bilaterally without wheezes or rales. CARDIOVASCULAR: Regular rhythm and rate. S1 and S2 are normal without murmurs, rubs, or gallops. ABDOMEN: Soft, nontender, and nondistended. Positive bowel sounds. No evidence of hepatosplenomegaly. Currently, no rebound or guarding noted. EXTREMITIES: Negative for clubbing, cyanosis, or edema. RECTAL/GENITAL: Refused. NEUROLOGIC: Cranial nerves II through XII are grossly intact without focal deficits. Motor strength is 5/5 bilaterally. Deep tendon reflexes are 2+ plantar. Assessment/Plan Assessment/Plan ASSESSMENT: This is an 83-year-old female. 1. Altered mental status. 2. Congestive heart failure. 3. Diabetes type 2. 4. Hypertension. 5. Coronary artery disease. 6. Chronic obstructive pulmonary disease. 7. Gastroesophageal reflux disease. 8. Alzheimer's dementia. TREATMENT: 1. Altered mental status. This may be secondary to congestive heart failure as above. 2. Congestive heart failure. Cardiology consultation has been obtained with Dr. Henry Wright. An echocardiogram is pending. 3. Diabetes type 2. A NovoLog sliding scale has been instituted. 4. Coronary artery disease. Continue aspirin as above. 5. Chronic obstructive pulmonary disease. A Pulmonary consultation obtained with Dr. Tawanna Watkins. Continue DuoNebs as above. 6. Gastroesophageal reflux disease. The patient has been started on Protonix. Continue Carafate as above. 7. Alzheimer's dementia. Aldair Card MD July 31, 2018 11:49
[2018-07-31 12:00] VITALS: BP 144/68
[2018-07-31 16:00] VITALS: BP 127/82
--- NOTE | 2018-07-31 16:01 | NUR ---
NURSE NOTES: Pt stable in no distress,refused BS checkand Novolog.
--- NOTE | 2018-07-31 18:00 | NUR ---
NURSE NOTES: Pt transferred to 301-2 per bed but was brought back to Telemetry per Nsg Ground Instructor Basic's order to her old room.
--- NOTE | 2018-07-31 19:05 | NUR ---
HAND-OFF: Report given to Haritha GRANADOS.
--- NOTE | 2018-07-31 19:10 | NUR ---
NURSE NOTES: Received report from Wanda GRANADOS, pt. is in bed A/O x's 2- able to make needs known, no signs or symptoms of acute cardiac or respiratory distress noted, pt. is off surveillance system monitor as pt. she is a med surge patient transfer awaiting bed. Bed in lowest position and call light within easy reach, bed alarm on, side rails on x's3 and safety brakes engaged, pt. appears to be sating well on 3L NC at 98%, pt. appears to be resting well in bed, safety measures continued, will continue with plan of care. Addendum: 07/31/18 at 2105 by ARMANDO FREIRE RN RN left hand 20G IV intact and patent.
[2018-07-31 20:00] VITALS: BP 148/76
[2018-07-31] MEDS ORDERED: LORazepam Inj 2mg/ml 1ml IM PRN (22:30)
[2018-07-31] MEDS ORDERED: Haloperidol 5mg/ml Inj IM PRN (22:30)
--- NOTE | 2018-07-31 22:33 | Psych Consult Progress Note ---
Psychiatry Progress Note Psychiatry Progress Note Medications Current Medications Medications (Trade) Dose Ordered Sig/Deidre Route PRN Reason Start Time Stop Time Status Last Admin Dose Admin Acetaminophen (Tylenol) 650 mg Q6H PRN ORAL Mild Pain/Temp > 100.5 07/30/18 07:00 08/29/18 06:59 Acetaminophen/ Hydrocodone Bitart ([place] 5/325) 1 tab Q6H PRN ORAL For Pain 4-10 07/30/18 07:00 08/06/18 06:59 Albuterol/ Ipratropium (Albuterol/ Ipratropium) 3 ml Q4H PRN HHN Shortness of Breath 07/30/18 07:00 08/04/18 06:59 Clonidine HCl (Catapres TTS-1) 1 patch QWEEK TDERMAL 07/31/18 13:00 08/30/18 12:59 Dextrose (Dextrose 50%) 25 ml Q30M PRN IV Hypoglycemia 07/30/18 07:00 08/29/18 06:59 Dextrose (Dextrose 50%) 50 ml Q30M PRN IV Hypoglycemia 07/30/18 07:00 08/29/18 06:59 Haloperidol Lactate (Haldol) 5 mg Q6H PRN IM Agitation 08/01/18 08:00 08/31/18 07:59 Heparin Sodium (Porcine) (Heparin 5000 units/ml) 5,000 units EVERY 12 HOURS SUBQ 07/30/18 09:00 08/29/18 08:59 Insulin Aspart (NovoLOG) BEFORE MEALS AND HS SUBQ 07/30/18 11:30 08/29/18 11:29 Lorazepam (Ativan) 0.5 mg Q6H PRN ORAL For Anxiety 07/30/18 07:00 08/06/18 06:59 Risperidone (RisperDAL) 1 mg BID ORAL 07/31/18 09:00 08/30/18 08:59 Sucralfate (Carafate) 1 gm FOUR TIMES A DAY ORAL 07/30/18 09:00 08/29/18 08:59 07/30/18 14:01 Neurological/Psychiatric: Reports: anxiety, depressed, emotional problems Allergies: Coded Allergies: No Known Allergies (Unverified , 06/27/18) Objective Data Height (Feet): 5 Height (Inches): 7.00 Weight (Pounds): 229 General Appearance: alert, confused, agitated Appearance: no abnormalities noted Behavior Mannerisms: poor eye contact Mental Status Exam - Affect: constricted Mental Status Exam - Mood: anxious, agitated Mental Status Exam - Thought P: tangential, confusion Mental Status Exam - Suicidal: not present Assessment/Plan Problem List: (1) Dementia ICD Codes: F03.90 - Unspecified dementia without behavioral disturbance SNOMED: [id number] Status: unchanged Assessment/Plan: risperdal ativan im haldol im the pt lacks capacity to make decisions Beverley Limon MD July 31, 2018 22:33
[2018-08-01] VITALS: BP 143/71
[2018-08-01] MEDS: NovoLOG Insulin Flexpen SUBQ SCH ×4 (05:33→21:00)
--- NOTE | 2018-08-01 07:10 | NUR ---
HAND-OFF: Report given to Rubi RN, pt. remains stable and no signs of distress noted.
--- NOTE | 2018-08-01 07:10 | NUR ---
NURSE NOTES: Received report from Lulu GRANADOS. AO X 1or 2 and forgetful. Bed in lowest position and locked. No c/o pain. No signs of distress noted. IV in LAC 20g SL patent and intact. On 2LPM o2 via NC. O2 sat with 95% on 2LPM. Will continue to plan of care.
[2018-08-01 08:00] VITALS: BP 165/72
[2018-08-01] MEDS ORDERED: Haloperidol 5mg/ml Inj IM PRN ×2 (08:00→08:21)
--- NOTE | 2018-08-01 08:10 | NUR ---
HAND-OFF: Report given to John GRANADOS @MED/SURGE. Pt remains stable.
[2018-08-01] MEDS ORDERED: HYDROcodone/Acetamin 5/325 tab ORAL PRN (08:21)
[2018-08-01] MEDS ORDERED: LORazepam Inj 2mg/ml 1ml IM PRN ×2 (08:21→08:30)
[2018-08-01] MEDS ORDERED: LORazepam 0.5mg tab ORAL PRN (08:21)
--- NOTE | 2018-08-01 08:49 | NUR ---
NURSE NOTES: Patient transferred from Telemetry. Report received from DARWIN Cagle for continuity of care. Belongings reviewed and accounted for. No reports of distress at the moment. Will continue to monitor.
[2018-08-01] MEDS: Sucralfate 1gm tab ORAL SCH ×5 (09:00→21:00)
[2018-08-01] MEDS: Heparin 5000 units/ml inj SUBQ SCH ×3 (09:00→21:00)
[2018-08-01] MEDS ORDERED: Sucralfate 1gm tab ORAL SCH (10:15)
--- NOTE | 2018-08-01 12:57 | Pulmonology Progress Note ---
Assessment/Plan Problems: (1) Hypertensive urgency (2) Elevated troponin (3) COPD (chronic obstructive pulmonary disease) (4) Diabetes mellitus (5) Dementia (6) HTN (hypertension) (7) Morbid obesity Assessment/Plan still refusing all meds start clonidine patch for HTN, refusing oral meds Psych prescribed Hold and Resperidol med/surg Subjective ROS Limited/Unobtainable: No Constitutional: Reports: no symptoms HEENT: Repors: no symptoms Respiratory: Reports: no symptoms Allergies: Coded Allergies: No Known Allergies (Unverified , 06/27/18) Objective Last 24 Hour Vital Signs Date Time Temp Pulse Resp B/P (MAP) Pulse Ox O2 Delivery O2 Flow Rate FiO2 08/01/18 08:00 98.0 81 20 165/72 (103) 95 08/01/18 07:30 Nasal Cannula 4.0 36 08/01/18 07:30 80 17 Nasal Cannula 4.0 36 08/01/18 07:30 96 Nasal Cannula 4.0 36 08/01/18 00:04 98 Nasal Cannula 4.0 36 08/01/18 00:04 Nasal Cannula 4.0 36 08/01/18 00:02 82 20 Nasal Cannula 4.0 36 08/01/18 00:00 98.2 79 20 143/71 (95) 96 07/31/18 21:00 Room Air 4.0 07/31/18 20:00 98.8 84 18 148/76 (100) 99 07/31/18 16:00 97.9 95 22 127/82 (97) 93 07/31/18 13:00 144/68 Intake and Output 07/31/18 08/01/18 18:59 06:59 Intake Total 120 ml Output Total 300 ml Balance -180 ml Intake Oral 120 ml Output Urine Total 300 ml # Voids 2 1 General Appearance: WD/WN HEENT: normocephalic, anicteric Respiratory/Chest: chest wall non-tender, lungs clear Breasts: no masses Cardiovascular: normal rate Abdomen: normal bowel sounds, non distended Extremities: no cyanosis Skin: no rash Microbiology Date/Time Source Procedure Growth Status 07/30/18 00:24 Nasal Nares MRSA Culture - Final Staphylococcus Aureus - Mrsa Complete 07/30/18 00:24 Rectum - Final NO CARBAPENEM-RESISTANT ENTEROBACTERI... Complete 07/30/18 00:24 Rectum VRE Culture - Final NO VANCOMYCIN RESISTANT ENTEROCOCCUS ... Complete Current Medications Medications (Trade) Dose Ordered Sig/Deidre Route PRN Reason Start Time Stop Time Status Last Admin Dose Admin Acetaminophen (Tylenol) 650 mg Q6H PRN ORAL Mild Pain/Temp > 100.5 08/01/18 08:20 08/31/18 08:19 Acetaminophen/ Hydrocodone Bitart ([place] 5/325) 1 tab Q6H PRN ORAL For Pain 4-10 08/01/18 08:21 08/08/18 08:20 Albuterol/ Ipratropium (Albuterol/ Ipratropium) 3 ml Q4H PRN HHN Shortness of Breath 08/01/18 08:21 08/06/18 08:20 Clonidine HCl (Catapres TTS-1) 1 patch QWEEK TDERMAL 08/07/18 13:00 08/30/18 12:59 Dextrose (Dextrose 50%) 25 ml Q30M PRN IV Hypoglycemia 08/01/18 08:30 08/29/18 06:59 Dextrose (Dextrose 50%) 50 ml Q30M PRN IV Hypoglycemia 08/01/18 08:30 08/29/18 06:59 Haloperidol Decanoate (Haldol) 50 mg ONCE ONCE IM 08/01/18 13:00 08/01/18 13:01 Haloperidol Lactate (Haldol) 5 mg BEDTIME IM 08/01/18 21:00 08/31/18 20:59 Haloperidol Lactate (Haldol) 5 mg Q6H PRN IM Agitation 08/01/18 08:21 08/31/18 08:20 Heparin Sodium (Porcine) (Heparin 5000 units/ml) 5,000 units EVERY 12 HOURS SUBQ 08/01/18 09:00 08/29/18 08:59 Insulin Aspart (NovoLOG) BEFORE MEALS AND HS SUBQ 08/01/18 11:30 08/29/18 11:29 Lorazepam (Ativan 2mg/ml 1ml) 1 mg Q4H PRN IM For Anxiety 08/01/18 08:30 08/08/18 08:20 Lorazepam (Ativan) 0.5 mg Q6H PRN ORAL For Anxiety 08/01/18 08:21 08/08/18 08:20 Risperidone (RisperDAL) 1 mg BID ORAL 08/01/18 09:00 08/30/18 08:59 Sucralfate (Carafate) 1 gm FOUR TIMES A DAY ORAL 08/01/18 09:00 08/29/18 08:59 Tawanna Watkins MD August 01, 2018 12:57
[2018-08-01] MEDS ORDERED: Haloperidol Decanoate 50mg Inj IM ONE (13:00)
[2018-08-01 16:00] VITALS: BP 158/66
--- NOTE | 2018-08-01 17:11 | NUR ---
NURSE NOTES: Patient refusing to have IV checked. Patient guarded and suspicious towards nurse. Patient said to RN "do not get near me".
--- NOTE | 2018-08-01 18:10 | Internal Med Progress Note ---
Subjective Date of Service: August 01, 2018 Physician Name Aldair Card Attending Physician Nahun Alfaro MD Current Medications Medications (Trade) Dose Ordered Sig/Deidre Route PRN Reason Start Time Stop Time Status Last Admin Dose Admin Acetaminophen (Tylenol) 650 mg Q6H PRN ORAL Mild Pain/Temp > 100.5 08/01/18 08:20 08/31/18 08:19 Acetaminophen/ Hydrocodone Bitart ([place] 5/325) 1 tab Q6H PRN ORAL For Pain 4-10 08/01/18 08:21 08/08/18 08:20 Albuterol/ Ipratropium (Albuterol/ Ipratropium) 3 ml Q4H PRN HHN Shortness of Breath 08/01/18 08:21 08/06/18 08:20 Clonidine HCl (Catapres TTS-1) 1 patch QWEEK TDERMAL 08/07/18 13:00 08/30/18 12:59 Dextrose (Dextrose 50%) 25 ml Q30M PRN IV Hypoglycemia 08/01/18 08:30 08/29/18 06:59 Dextrose (Dextrose 50%) 50 ml Q30M PRN IV Hypoglycemia 08/01/18 08:30 08/29/18 06:59 Haloperidol Lactate (Haldol) 5 mg BEDTIME IM 08/01/18 21:00 08/31/18 20:59 Haloperidol Lactate (Haldol) 5 mg Q6H PRN IM Agitation 08/01/18 08:21 08/31/18 08:20 Heparin Sodium (Porcine) (Heparin 5000 units/ml) 5,000 units EVERY 12 HOURS SUBQ 08/01/18 09:00 08/29/18 08:59 Insulin Aspart (NovoLOG) BEFORE MEALS AND HS SUBQ 08/01/18 11:30 08/29/18 11:29 Lorazepam (Ativan 2mg/ml 1ml) 1 mg Q4H PRN IM For Anxiety 08/01/18 08:30 08/08/18 08:20 Lorazepam (Ativan) 0.5 mg Q6H PRN ORAL For Anxiety 08/01/18 08:21 08/08/18 08:20 Risperidone (RisperDAL) 1 mg BID ORAL 08/01/18 09:00 08/30/18 08:59 Sucralfate (Carafate) 1 gm FOUR TIMES A DAY ORAL 5/2/19 09:00 08/29/18 08:59 Allergies: Coded Allergies: No Known Allergies (Unverified , 06/27/18) ROS Limited/Unobtainable: Yes Subjective 83 YO F admitted with altered mental status. Now CHF. Cover for Int Med-Dr Alfaro Objective Last Vital Signs Date Time Temp Pulse Resp B/P (MAP) Pulse Ox O2 Delivery O2 Flow Rate FiO2 08/01/18 16:00 98.9 79 18 158/66 (96) 96 08/01/18 08:45 Room Air 4.0 08/01/18 07:30 36 Microbiology Date/Time Source Procedure Growth Status 07/30/18 00:24 Nasal Nares MRSA Culture - Final Staphylococcus Aureus - Mrsa Complete 07/30/18 00:24 Rectum - Final NO CARBAPENEM-RESISTANT ENTEROBACTERI... Complete 07/30/18 00:24 Rectum VRE Culture - Final NO VANCOMYCIN RESISTANT ENTEROCOCCUS ... Complete Intake and Output 07/31/18 08/01/18 18:59 06:59 Intake Total 120 ml Output Total 300 ml Balance -180 ml Intake Oral 120 ml Output Urine Total 300 ml # Voids 2 1 Objective PHYSICAL EXAMINATION: GENERAL: The patient is a well-developed and well-nourished slightly obese female, in no apparent distress. HEENT: Eyes, pupils are equal and responsive to light and accommodation. Extraocular movements are intact. NECK: Supple without lymphadenopathy. CHEST: Lungs are clear to auscultation bilaterally without wheezes or rales. CARDIOVASCULAR: Regular rhythm and rate. S1 and S2 are normal without murmurs, rubs, or gallops. ABDOMEN: Soft, nontender, and nondistended. Positive bowel sounds. No evidence of hepatosplenomegaly. Currently, no rebound or guarding noted. EXTREMITIES: Negative for clubbing, cyanosis, or edema. RECTAL/GENITAL: Refused. NEUROLOGIC: Cranial nerves II through XII are grossly intact without focal deficits. Motor strength is 5/5 bilaterally. Deep tendon reflexes are 2+ plantar. Assessment/Plan Assessment/Plan ASSESSMENT: This is an 83-year-old female. 1. Altered mental status. 2. Congestive heart failure. 3. Diabetes type 2. 4. Hypertension. 5. Coronary artery disease. 6. Chronic obstructive pulmonary disease. 7. Gastroesophageal reflux disease. 8. Alzheimer's dementia. TREATMENT: 1. Altered mental status. This may be secondary to congestive heart failure as above. 2. Congestive heart failure. Cardiology consultation has been obtained with Dr. Henry Wright. An echocardiogram is pending. 3. Diabetes type 2. A NovoLog sliding scale has been instituted. 4. Coronary artery disease. Continue aspirin as above. 5. Chronic obstructive pulmonary disease. A Pulmonary consultation obtained with Dr. Tawanna Watkins. Continue DuoNebs as above. 6. Gastroesophageal reflux disease. The patient has been started on Protonix. Continue Carafate as above. 7. Alzheimer's dementia. Aldair Card MD August 01, 2018 18:10
--- NOTE | 2018-08-01 19:24 | NUR ---
HAND-OFF: Report given to DAWRIN Wu.
--- NOTE | 2018-08-01 19:38 | Psych Consult Progress Note ---
Psychiatry Progress Note Psychiatry Progress Note Medications Current Medications Medications (Trade) Dose Ordered Sig/Deidre Route PRN Reason Start Time Stop Time Status Last Admin Dose Admin Acetaminophen (Tylenol) 650 mg Q6H PRN ORAL Mild Pain/Temp > 100.5 08/01/18 08:20 08/31/18 08:19 Acetaminophen/ Hydrocodone Bitart ([place] 5/325) 1 tab Q6H PRN ORAL For Pain 4-10 08/01/18 08:21 08/08/18 08:20 Albuterol/ Ipratropium (Albuterol/ Ipratropium) 3 ml Q4H PRN HHN Shortness of Breath 08/01/18 08:21 08/06/18 08:20 Clonidine HCl (Catapres TTS-1) 1 patch QWEEK TDERMAL 08/07/18 13:00 08/30/18 12:59 Dextrose (Dextrose 50%) 25 ml Q30M PRN IV Hypoglycemia 08/01/18 08:30 08/29/18 06:59 Dextrose (Dextrose 50%) 50 ml Q30M PRN IV Hypoglycemia 08/01/18 08:30 08/29/18 06:59 Haloperidol Lactate (Haldol) 5 mg BEDTIME IM 08/01/18 21:00 08/31/18 20:59 Haloperidol Lactate (Haldol) 5 mg Q6H PRN IM Agitation 08/01/18 08:21 08/31/18 08:20 Heparin Sodium (Porcine) (Heparin 5000 units/ml) 5,000 units EVERY 12 HOURS SUBQ 08/01/18 09:00 08/29/18 08:59 Insulin Aspart (NovoLOG) BEFORE MEALS AND HS SUBQ 08/01/18 11:30 08/29/18 11:29 Lorazepam (Ativan 2mg/ml 1ml) 1 mg Q4H PRN IM For Anxiety 08/01/18 08:30 08/08/18 08:20 Lorazepam (Ativan) 0.5 mg Q6H PRN ORAL For Anxiety 08/01/18 08:21 08/08/18 08:20 Risperidone (RisperDAL) 1 mg BID ORAL 08/01/18 09:00 08/30/18 08:59 Sucralfate (Carafate) 1 gm FOUR TIMES A DAY ORAL 08/01/18 09:00 08/29/18 08:59 Neurological/Psychiatric: Reports: anxiety, depressed Allergies: Coded Allergies: No Known Allergies (Unverified , 06/27/18) Objective Data Height (Feet): 5 Height (Inches): 7.00 Weight (Pounds): 229 General Appearance: alert, confused, agitated, overweight Appearance: disheveled Behavior Mannerisms: poor eye contact Mental Status Exam - Affect: flat Mental Status Exam - Mood: anxious Mental Status Exam - Thought P: tangential, confusion, disorganized Perceptual Disturbances: hallucinations Mental Status Exam - Suicidal: not present Assessment/Plan Problem List: (1) Dementia ICD Codes: F03.90 - Unspecified dementia without behavioral disturbance SNOMED: [id number] Status: unchanged Assessment/Plan: risperdal ativan im haldol im the pt lacks capacity to make decisions heatherdoBeverley Sky MD August 01, 2018 19:38
--- NOTE | 2018-08-01 20:19 | NUR ---
NURSE NOTES: PATIENT IN BED, AWAKE, ALERT TO NAME, CONFUSED. NO COMPLAINTS OF PAIN AT THIS TIME. NO S/S DISTRESS NOTED. BED IN LOWEST POSITION, CALL LIGHT WITHIN REACH, BED ALARM ON. WILL CONTINUE TO MONITOR.
[2018-08-01 20:28] VITALS: BP 153/75
[2018-08-01] MEDS: Albuterol/Ipratropium 3ml neb HHN PRN (20:44)
[2018-08-01] MEDS: Haloperidol 5mg/ml Inj IM SCH (22:04)
--- NOTE | 2018-08-01 22:04 | NUR ---
NURSE NOTES: PATIENT ALLOWED NURSE TO CHECK BLOOD SUGAR BUT REFUSED 2100 MEDICATIONS. WHEN NURSE EXPLAINED PURPOSE, PATIENT ADAMANTLY SHOOK HER HEAD NO AND REFUSED TO TAKE THE MEDICINE, AND BECAME MORE RESTLESS AND AGITATED. AFTER NURSE EXPLAINED HOW PATIENT NEEDS MEDICINE, PATIENT ONLY LET NURSE GIVE HALDOL IM MEDICATION. PATIENT TOLERATED INJECTION. WILL CONTINUE TO MONITOR. Addendum: 08/01/18 at 6513 by IRON RAYGOZA RN RN HALDOL 5 MG WAS A SCHEDULED MEDICATION AT 2100 PER MD ORDER.
--- NOTE | 2018-08-01 23:39 | NUR ---
NURSE NOTES: PATIENT NOW ASLEEP, NO DISTRESS NOTED.
[2018-08-02 00:32] VITALS: BP 151/69
[2018-08-02 04:42] VITALS: BP 123/54
--- NOTE | 2018-08-02 06:00 | NUR ---
NURSE NOTES: Patient refused am labs, nurse explained purpose/benefit, patient still refused and stated, "Come back later!". [place] attendant will come back after breakfast.
[2018-08-02] MEDS: NovoLOG Insulin Flexpen SUBQ SCH ×4 (06:59→21:14)
--- NOTE | 2018-08-02 07:28 | NUR ---
HAND-OFF: Report given to ANDRES BOWEN RN.
[2018-08-02 08:00] VITALS: BP 123/60
[2018-08-02 08:11] LABS: BASOPHILS % (AUTO) 2.6 % (0.0-2.0); EOSINOPHILS % (AUTO) 5.6 % (0.0-3.0); HEMATOCRIT 34.7 % (37.0-47.0); HEMOGLOBIN 10.5 G/DL (12.0-16.0); LYMPHOCYTES % (AUTO) 13.3 % (20.0-45.0); MEAN CORPUSCULAR VOLUME 88 FL (80-99); MONOCYTES % (AUTO) 9.1 % (1.0-10.0); NEUTROPHILS % (AUTO) 69.4 % (45.0-75.0); PLATELET COUNT 171 K/UL (150-450); RED BLOOD COUNT 3.96 M/UL (4.20-5.40); RED CELL DISTRIBUTION WIDTH 13.6 % (11.6-14.8)
--- NOTE | 2018-08-02 08:11 | NUR ---
NURSE NOTES: Patient received resting in bed, eating breakfast. Respirations unlabored with nasal cannula at 2L/min. Patient is confused but not aggressive. Bed locked in low position, bed alarm is on. Call light placed within reach. Patient is by the nurse's station for closer monitoring.
[2018-08-02] MEDS: Heparin 5000 units/ml inj SUBQ SCH ×2 (09:00→21:12)
[2018-08-02 09:06] LABS: ALANINE AMINOTRANSFERASE 20 U/L (12-78); ALBUMIN/GLOBULIN RATIO 0.8 (1.0-2.7); ALKALINE PHOSPHATASE 82 U/L (46-116); ANION GAP 2 mmol/L (5-15); ASPARTATE AMINO TRANSFERASE 22 U/L (15-37); BILIRUBIN,TOTAL 0.5 MG/DL (0.2-1.0); BLOOD UREA NITROGEN 12 mg/dL (7-18); CALCIUM 9.4 MG/DL (8.5-10.1); CARBON DIOXIDE 39 MMOL/L (21-32); CHLORIDE 102 MMOL/L (98-107); CREATININE 0.9 MG/DL (0.55-1.30); PHOSPHORUS 3.6 MG/DL (2.5-4.9); POTASSIUM 3.9 MMOL/L (3.5-5.1); SODIUM 143 MMOL/L (136-145)
[2018-08-02] MEDS: Sucralfate 1gm tab ORAL SCH ×4 (09:20→21:07)
--- NOTE | 2018-08-02 09:45 | NUR ---
NURSE NOTES: Dr. Watkins informed of troponin 0.127. verbalized understanding. No interventions given as patient refuses medication/treatment.
--- NOTE | 2018-08-02 11:37 | NUR ---
NURSE NOTES: Patient refused blood sugar check and insulin. Patient is resting in bed, no signs of distress. No signs of hyperglycemia/hypoglycemia observed.
--- NOTE | 2018-08-02 11:51 | NUR ---
CASE MANAGEMENT:REVIEW 08/02/18 SI: HTN URGENCY. CHF. AMS. COPD 97.3 79 18 123/60 98% ON 4L/NC H/H-10.5/34.7 ESR+35 TROPONIN(+) 0.127 IS: CLONIDINE QWEEK HALDOL IM QHS HEPARIN SQ Q12 RISPERDAL PO BID CARAFATE PO QID : MED/SURG [facility]
[2018-08-02 12:00] VITALS: BP 154/68
--- NOTE | 2018-08-02 13:24 | Pulmonology Progress Note ---
Assessment/Plan Problems: (1) Hypertensive urgency (2) Elevated troponin (3) COPD (chronic obstructive pulmonary disease) (4) Diabetes mellitus (5) Dementia (6) HTN (hypertension) (7) Morbid obesity Assessment/Plan still refusing all meds start clonidine patch for HTN, refusing oral meds Psych prescribed Hold and Resperidol dc planning med/surg Subjective Constitutional: Reports: no symptoms HEENT: Repors: no symptoms Respiratory: Reports: no symptoms Allergies: Coded Allergies: No Known Allergies (Unverified , 06/27/18) Objective Last 24 Hour Vital Signs Date Time Temp Pulse Resp B/P (MAP) Pulse Ox O2 Delivery O2 Flow Rate FiO2 08/02/18 12:00 97.9 81 19 154/68 (96) 98 08/02/18 09:55 79 18 Nasal Cannula 4.0 36 08/02/18 09:55 Nasal Cannula 4.0 36 08/02/18 09:55 98 Nasal Cannula 4.0 36 08/02/18 09:00 Nasal Cannula 4.0 08/02/18 08:00 97.3 79 18 123/60 (81) 97 08/02/18 04:42 98.6 75 18 123/54 (77) 96 08/02/18 00:32 98.0 84 18 151/69 (96) 96 08/01/18 23:43 Nasal Cannula 4.0 08/01/18 20:46 79 20 98 Nasal Cannula 4.0 36 08/01/18 20:44 Nasal Cannula 4.0 36 08/01/18 20:36 83 20 95 Nasal Cannula 3.0 32 08/01/18 20:36 95 Nasal Cannula 4.0 36 08/01/18 20:35 83 20 Nasal Cannula 4.0 36 08/01/18 20:28 99.2 82 18 153/75 (101) 95 08/01/18 16:00 98.9 79 18 158/66 (96) 96 Intake and Output 08/01/18 08/02/18 19:00 07:00 Output Total 150 ml Balance -150 ml Output Urine Total 150 ml # Voids 3 General Appearance: WD/WN HEENT: normocephalic, atraumatic Respiratory/Chest: chest wall non-tender, lungs clear Breasts: no masses Cardiovascular: normal peripheral pulses Abdomen: normal bowel sounds, soft, non tender, no mass Extremities: no cyanosis, no clubbing Skin: no rash Laboratory Tests 08/02/18 08:00: White Blood Count 7.0, Red Blood Count 3.96L, Hemoglobin 10.5L, Hematocrit 34.7L , Mean Corpuscular Volume 88, Mean Corpuscular Hemoglobin 26.6L, Mean Corpuscular Hemoglobin Concent 30.3L, Red Cell Distribution Width 13.6, Platelet Count 171, Mean Platelet Volume 7.6, Neutrophils (%) (Auto) 69.4, Lymphocytes (%) (Auto) 13.3L, Monocytes (%) (Auto) 9.1, Eosinophils (%) (Auto) 5.6H, Basophils (%) (Auto) 2.6H, Erythrocyte Sedimentation Rate 35H, Sodium Level 143, Potassium Level 3.9, Chloride Level 102, Carbon Dioxide Level 39H, Anion Gap 2L, Blood Urea Nitrogen 12, Creatinine 0.9, Estimat Glomerular Filtration Rate , Glucose Level 186H, Calcium Level 9.4, Phosphorus Level 3.6, Magnesium Level 1.7L, Total Bilirubin 0.5, Aspartate Amino Transf (AST/SGOT) 22 , Alanine Aminotransferase (ALT/SGPT) 20, Alkaline Phosphatase 82, Troponin I 0.127H, Pro-B-Type Natriuretic Peptide 451H, Total Protein 6.7, Albumin 3.0L, Globulin 3.7, Albumin/Globulin Ratio 0.8L Current Medications Medications (Trade) Dose Ordered Sig/Deidre Route PRN Reason Start Time Stop Time Status Last Admin Dose Admin Acetaminophen (Tylenol) 650 mg Q6H PRN ORAL Mild Pain/Temp > 100.5 08/01/18 08:20 08/31/18 08:19 Acetaminophen/ Hydrocodone Bitart ([place] 5/325) 1 tab Q6H PRN ORAL For Pain 4-10 08/01/18 08:21 08/08/18 08:20 Albuterol/ Ipratropium (Albuterol/ Ipratropium) 3 ml Q4H PRN HHN Shortness of Breath 08/01/18 08:21 08/06/18 08:20 08/01/18 20:44 Clonidine HCl (Catapres TTS-1) 1 patch QWEEK TDERMAL 08/07/18 13:00 08/30/18 12:59 Dextrose (Dextrose 50%) 25 ml Q30M PRN IV Hypoglycemia 08/01/18 08:30 08/29/18 06:59 Dextrose (Dextrose 50%) 50 ml Q30M PRN IV Hypoglycemia 08/01/18 08:30 08/29/18 06:59 Haloperidol Lactate (Haldol) 5 mg BEDTIME IM 08/01/18 21:00 08/31/18 20:59 08/01/18 22:04 Haloperidol Lactate (Haldol) 5 mg Q6H PRN IM Agitation 08/01/18 08:21 08/31/18 08:20 08/02/18 09:20 Heparin Sodium (Porcine) (Heparin 5000 units/ml) 5,000 units EVERY 12 HOURS SUBQ 08/01/18 09:00 08/29/18 08:59 Insulin Aspart (NovoLOG) BEFORE MEALS AND HS SUBQ 08/01/18 11:30 08/29/18 11:29 08/02/18 06:59 Lorazepam (Ativan 2mg/ml 1ml) 1 mg Q4H PRN IM For Anxiety 08/01/18 08:30 08/08/18 08:20 Lorazepam (Ativan) 0.5 mg Q6H PRN ORAL For Anxiety 08/01/18 08:21 08/08/18 08:20 Risperidone (RisperDAL) 1 mg BID ORAL 08/01/18 09:00 08/30/18 08:59 08/02/18 09:20 Sucralfate (Carafate) 1 gm FOUR TIMES A DAY ORAL 08/01/18 09:00 08/29/18 08:59 08/02/18 09:20 Tawanna Watkins MD August 02, 2018 13:24
--- NOTE | 2018-08-02 14:42 | Internal Med Progress Note ---
Subjective Physician Name Nahun Alfaro Attending Physician Nahun Alfaro MD Current Medications Medications (Trade) Dose Ordered Sig/Deidre Route PRN Reason Start Time Stop Time Status Last Admin Dose Admin Acetaminophen (Tylenol) 650 mg Q6H PRN ORAL Mild Pain/Temp > 100.5 08/01/18 08:20 08/31/18 08:19 Acetaminophen/ Hydrocodone Bitart ([place] 5/325) 1 tab Q6H PRN ORAL For Pain 4-10 08/01/18 08:21 08/08/18 08:20 Albuterol/ Ipratropium (Albuterol/ Ipratropium) 3 ml Q4H PRN HHN Shortness of Breath 08/01/18 08:21 08/06/18 08:20 08/01/18 20:44 Clonidine HCl (Catapres TTS-1) 1 patch QWEEK TDERMAL 08/07/18 13:00 08/30/18 12:59 Dextrose (Dextrose 50%) 25 ml Q30M PRN IV Hypoglycemia 08/01/18 08:30 08/29/18 06:59 Dextrose (Dextrose 50%) 50 ml Q30M PRN IV Hypoglycemia 08/01/18 08:30 08/29/18 06:59 Haloperidol Lactate (Haldol) 5 mg BEDTIME IM 08/01/18 21:00 08/31/18 20:59 08/01/18 22:04 Haloperidol Lactate (Haldol) 5 mg Q6H PRN IM Agitation 08/01/18 08:21 08/31/18 08:20 08/02/18 09:20 Heparin Sodium (Porcine) (Heparin 5000 units/ml) 5,000 units EVERY 12 HOURS SUBQ 08/01/18 09:00 08/29/18 08:59 Insulin Aspart (NovoLOG) BEFORE MEALS AND HS SUBQ 08/01/18 11:30 08/29/18 11:29 08/02/18 06:59 Lorazepam (Ativan 2mg/ml 1ml) 1 mg Q4H PRN IM For Anxiety 08/01/18 08:30 08/08/18 08:20 Lorazepam (Ativan) 0.5 mg Q6H PRN ORAL For Anxiety 08/01/18 08:21 08/08/18 08:20 Risperidone (RisperDAL) 1 mg BID ORAL 08/01/18 09:00 08/30/18 08:59 08/02/18 09:20 Sucralfate (Carafate) 1 gm FOUR TIMES A DAY ORAL 08/01/18 09:00 08/29/18 08:59 08/02/18 09:20 Allergies: Coded Allergies: No Known Allergies (Unverified , 06/27/18) Subjective Awake, alert, responsive, no acute distress, denies any chest pain or shortness of breath. Objective Last Vital Signs Date Time Temp Pulse Resp B/P (MAP) Pulse Ox O2 Delivery O2 Flow Rate FiO2 08/02/18 12:00 97.9 81 19 154/68 (96) 98 08/02/18 09:55 Nasal Cannula 4.0 36 Laboratory Tests Test 08/02/18 08:00 White Blood Count 7.0 K/UL (4.8-10.8) Red Blood Count 3.96 M/UL (4.20-5.40) L Hemoglobin 10.5 G/DL (12.0-16.0) L Hematocrit 34.7 % (37.0-47.0) L Mean Corpuscular Volume 88 FL (80-99) Mean Corpuscular Hemoglobin 26.6 PG (27.0-31.0) L Mean Corpuscular Hemoglobin Concent 30.3 G/DL (32.0-36.0) L Red Cell Distribution Width 13.6 % (11.6-14.8) Platelet Count 171 K/UL (150-450) Mean Platelet Volume 7.6 FL (6.5-10.1) Neutrophils (%) (Auto) 69.4 % (45.0-75.0) Lymphocytes (%) (Auto) 13.3 % (20.0-45.0) L Monocytes (%) (Auto) 9.1 % (1.0-10.0) Eosinophils (%) (Auto) 5.6 % (0.0-3.0) H Basophils (%) (Auto) 2.6 % (0.0-2.0) H Erythrocyte Sedimentation Rate 35 MM/HR (0-30) H Sodium Level 143 MMOL/L (136-145) Potassium Level 3.9 MMOL/L (3.5-5.1) Chloride Level 102 MMOL/L (98-107) Carbon Dioxide Level 39 MMOL/L (21-32) H Anion Gap 2 mmol/L (5-15) L Blood Urea Nitrogen 12 mg/dL (7-18) Creatinine 0.9 MG/DL (0.55-1.30) Estimat Glomerular Filtration Rate mL/min (>60) Glucose Level 186 MG/DL (74-106) H Calcium Level 9.4 MG/DL (8.5-10.1) Phosphorus Level 3.6 MG/DL (2.5-4.9) Magnesium Level 1.7 MG/DL (1.8-2.4) L Total Bilirubin 0.5 MG/DL (0.2-1.0) Aspartate Amino Transf (AST/SGOT) 22 U/L (15-37) Alanine Aminotransferase (ALT/SGPT) 20 U/L (12-78) Alkaline Phosphatase 82 U/L (46-116) Troponin I 0.127 ng/mL (0.000-0.056) Pro-B-Type Natriuretic Peptide 451 pg/mL (0-125) H Total Protein 6.7 G/DL (6.4-8.2) Albumin 3.0 G/DL (3.4-5.0) L Globulin 3.7 g/dL Albumin/Globulin Ratio 0.8 (1.0-2.7) L Intake and Output 08/01/18 08/02/18 19:00 07:00 Output Total 150 ml Balance -150 ml Output Urine Total 150 ml # Voids 3 Objective General: No acute distress, awake and alert HEENT: NCAT, sclera anicteric, PERRL, EOMI. Neck: Supple, no significant jugular venous distention, Lungs: Good inspiratory effort, clear to auscultation bilaterally, no Wheeze or Rales. Heart: Regular rate and rhythm, normal S1/S2, no murmur. Abdomen: soft, nontender, nondistended. Normoactive bowel sounds, Morbid Obesity. Extremities: No Cyanosis , clubbing or edema. bilateral lower extremity hyperpigmentation noted. Neuro: A&O x 3, Able to move all extremities Skin: warm, no rash. Assessment/Plan Assessment/Plan ASSESSMENT: This is an 83-year-old female. 1. Altered mental status. 2. Congestive heart failure. 3. Diabetes type 2. 4. Hypertension. 5. Coronary artery disease. 6. Chronic obstructive pulmonary disease. 7. Gastroesophageal reflux disease. 8. Alzheimer's dementia. TREATMENT: 1. Altered mental status. This may be secondary to congestive heart failure as above. 2. Congestive heart failure. Cardiology consultation has been obtained with Dr. Henry Wright. An echocardiogram is pending. 3. Diabetes type 2. A NovoLog sliding scale has been instituted. 4. Coronary artery disease. Continue aspirin as above. 5. Chronic obstructive pulmonary disease. A Pulmonary consultation obtained with Dr. Tawanna Watkins. Continue DuoNebs as above. 6. Gastroesophageal reflux disease. The patient has been started on Protonix. Continue Carafate as above. 7. Alzheimer's dementia. Discharge home today, Follow-up with the home health. Nahun Alfaro MD August 02, 2018 14:42
[2018-08-02] MEDS ORDERED: VALACYCLOVIR500 MG ORAL (15:14)
--- NOTE | 2018-08-02 19:07 | NUR ---
HAND-OFF: Report given to Jazmin GRANADOS.
--- NOTE | 2018-08-02 19:26 | NUR ---
NURSE NOTES: PATIENT IN BED, AWAKE, CONFUSED. NO COMPLAINTS OF PAIN AT THIS TIME. NO S/S DISTRESS NOTED. BED IN LOWEST POSITION, CALL LIGHT WITHIN REACH, BED ALARM ON. WILL CONTINUE TO MONITOR.
[2018-08-02 20:00] VITALS: BP 149/63
[2018-08-02] MEDS: Haloperidol 5mg/ml Inj IM SCH (21:10)
[2018-08-02] MEDS: Albuterol/Ipratropium 3ml neb HHN PRN (21:36)
[2018-08-03 00:20] VITALS: BP 141/61
--- NOTE | 2018-08-03 01:15 | Progress Note ---
DATE: 08/02/2018 SUBJECTIVE: The patient was in bed, asleep, continues to be confused and agitated. The patient has been refusing oral medication, however, has taken risperidone today and he has been receiving Haldol IM at the night since two nights ago. The patient in addition got Haldol Decanoate, which she has been tolerating and has no is side effects. The patient is calm, more redirectable today. MENTAL STATUS EXAMINATION: The patient is alert, however, confused. Uncooperative with the examination. Staring at this MD when I ask her questions. Her mood is neutral. Affect is flat. Thought process, there is a paucity of thought content. Thought content, no suicidal or homicidal ideations. The patient endorses auditory hallucination and delusion. Insight and judgment is poor. ASSESSMENT: The patient continues to be psychotic and noncompliant with medication due to underlying dementia as well as psychotic disorder. PLAN: 1. We will continue the Haldol 5 mg IM at bedtime. 2. Continue risperidone 1 mg p.o. b.i.d. 3. The patient lacks capacity to make decisions. Beverley Limon M.D. DR: EVONNE JOB#: [id number] CC:
[2018-08-03 04:07] VITALS: BP 140/82
--- NOTE | 2018-08-03 05:30 | NUR ---
NURSE NOTES: NEW IV ACCESS LEFT FOREARM 24 GAUGE.
[2018-08-03] MEDS: NovoLOG Insulin Flexpen SUBQ SCH ×4 (06:30→21:40)
--- NOTE | 2018-08-03 07:30 | NUR ---
HAND-OFF: Report given to LATONIA VAN RN.
--- NOTE | 2018-08-03 07:35 | NUR ---
NURSE NOTES: Received patient in bed, asleep @ this time. No s/s pain or discomfort. Side rails upx3. Bed is in lowest position and locked. Bed alarm is on. Will continue plan of care.
[2018-08-03 08:00] VITALS: BP 132/59
--- NOTE | 2018-08-03 08:29 | Pulmonology Progress Note ---
Assessment/Plan Assessment/Plan ASSESSMENT Hypertensive urgency Elevated troponin CHF Dementia COPD Diabetes mellitus Morbid obesity Hypothyroidism PLAN OF CARE MS floor pt refused all oral meds BP management with clonidine patch BP improved declined diuretic pulse oximetry stable on room air minimally elevated troponin , no complaint of chest pain patient declined ECHO reordered cardio eval pending EKG revealed no acute ischemic changes urine toxicology screen was negative BP improved per psych patient lacks capacity to make informed decision psychiatric medication regimen optimized stable for discharge to SNF closely monitor pt in the facility , hopefully with psychiatric medication regimen patient will become more cooperative to initiate further outpatient work-up pt will need SNF placement, lives alone and unable to take care of herself case discussed and evaluated by supervising physician Subjective Allergies: Coded Allergies: No Known Allergies (Unverified , 06/27/18) Subjective denies CP, SOB no signs of resp distress Objective Last 24 Hour Vital Signs Date Time Temp Pulse Resp B/P (MAP) Pulse Ox O2 Delivery O2 Flow Rate FiO2 08/03/18 08:00 99.5 70 20 132/59 (83) 98 08/03/18 04:07 98.0 70 19 140/82 (101) 98 08/03/18 00:20 97.4 68 19 141/61 (87) 96 08/02/18 22:43 Nasal Cannula 4.0 08/02/18 21:30 76 20 99 Nasal Cannula 2.0 28 08/02/18 21:20 78 22 98 Nasal Cannula 4.0 36 08/02/18 20:28 Nasal Cannula 4.0 36 08/02/18 20:28 96 Nasal Cannula 4.0 36 08/02/18 20:27 80 20 Nasal Cannula 4.0 36 08/02/18 20:00 97.3 82 19 149/63 (91) 96 08/02/18 12:00 97.9 81 19 154/68 (96) 98 08/02/18 09:55 79 18 Nasal Cannula 4.0 36 08/02/18 09:55 Nasal Cannula 4.0 36 08/02/18 09:55 98 Nasal Cannula 4.0 36 08/02/18 09:00 Nasal Cannula 4.0 Intake and Output 08/02/18 08/03/18 19:00 07:00 Intake Total 240 ml Balance 240 ml Intake Oral 240 ml # Voids 4 2 Objective General Appearance: no acute distress HEENT: normocephalic, atraumatic, anicteric, mucous membranes moist Respiratory/Chest: chest wall non-tender - with moderate air exchange , lungs clear Cardiovascular: normal rate, regular rhythm Abdomen: soft, non tender Extremities: other - +1 edema BLE Neurologic/Psychiatric: abnormal gait - unsteady , alert, responsive Musculoskeletal: atrophy - BLE Current Medications Medications (Trade) Dose Ordered Sig/Deidre Route PRN Reason Start Time Stop Time Status Last Admin Dose Admin Acetaminophen (Tylenol) 650 mg Q6H PRN ORAL Mild Pain/Temp > 100.5 08/01/18 08:20 08/31/18 08:19 Acetaminophen/ Hydrocodone Bitart ([place] 5/325) 1 tab Q6H PRN ORAL For Pain 4-10 08/01/18 08:21 08/08/18 08:20 Albuterol/ Ipratropium (Albuterol/ Ipratropium) 3 ml Q4H PRN HHN Shortness of Breath 08/01/18 08:21 08/06/18 08:20 08/02/18 21:36 Clonidine HCl (Catapres TTS-1) 1 patch QWEEK TDERMAL 08/07/18 13:00 08/30/18 12:59 Dextrose (Dextrose 50%) 25 ml Q30M PRN IV Hypoglycemia 08/01/18 08:30 08/29/18 06:59 Dextrose (Dextrose 50%) 50 ml Q30M PRN IV Hypoglycemia 08/01/18 08:30 08/29/18 06:59 Haloperidol Lactate (Haldol) 5 mg BEDTIME IM 08/01/18 21:00 08/31/18 20:59 08/02/18 21:10 Haloperidol Lactate (Haldol) 5 mg Q6H PRN IM Agitation 08/01/18 08:21 08/31/18 08:20 08/02/18 09:20 Heparin Sodium (Porcine) (Heparin 5000 units/ml) 5,000 units EVERY 12 HOURS SUBQ 08/01/18 09:00 08/29/18 08:59 08/02/18 21:12 Insulin Aspart (NovoLOG) BEFORE MEALS AND HS SUBQ 08/01/18 11:30 08/29/18 11:29 08/02/18 21:14 Lorazepam (Ativan 2mg/ml 1ml) 1 mg Q4H PRN IM For Anxiety 08/01/18 08:30 08/08/18 08:20 Lorazepam (Ativan) 0.5 mg Q6H PRN ORAL For Anxiety 08/01/18 08:21 08/08/18 08:20 Risperidone (RisperDAL) 1 mg BID ORAL 08/01/18 09:00 08/30/18 08:59 08/02/18 09:20 Sucralfate (Carafate) 1 gm FOUR TIMES A DAY ORAL 08/01/18 09:00 08/29/18 08:59 08/02/18 21:07 Jailyn Sims NP August 03, 2018 08:29
[2018-08-03] MEDS: Sucralfate 1gm tab ORAL SCH ×4 (09:04→21:22)
[2018-08-03] MEDS: Heparin 5000 units/ml inj SUBQ SCH ×2 (09:05→21:22)
[2018-08-03 12:00] VITALS: BP 115/55
--- NOTE | 2018-08-03 13:32 | NUR ---
CHARGE NURSE NOTES: CALLED [facility] REGARDING DISCHARGE. SPOKE WITH LUIS, PER HIM NO INQUIRY SENT. FAXED INFO TO [phone] & [phone] AWAITING RESPONSE.
--- NOTE | 2018-08-03 14:48 | Internal Med Progress Note ---
Subjective Date of Service: August 03, 2018 Physician Name Aldair Card Attending Physician Nahun Alfaro MD Current Medications Medications (Trade) Dose Ordered Sig/Deidre Route PRN Reason Start Time Stop Time Status Last Admin Dose Admin Acetaminophen (Tylenol) 650 mg Q6H PRN ORAL Mild Pain/Temp > 100.5 08/01/18 08:20 08/31/18 08:19 Acetaminophen/ Hydrocodone Bitart ([place] 5/325) 1 tab Q6H PRN ORAL For Pain 4-10 08/01/18 08:21 08/08/18 08:20 Albuterol/ Ipratropium (Albuterol/ Ipratropium) 3 ml Q4H PRN HHN Shortness of Breath 08/01/18 08:21 08/06/18 08:20 08/02/18 21:36 Clonidine HCl (Catapres TTS-1) 1 patch QWEEK TDERMAL 08/07/18 13:00 08/30/18 12:59 Dextrose (Dextrose 50%) 25 ml Q30M PRN IV Hypoglycemia 08/01/18 08:30 08/29/18 06:59 Dextrose (Dextrose 50%) 50 ml Q30M PRN IV Hypoglycemia 08/01/18 08:30 08/29/18 06:59 Haloperidol Lactate (Haldol) 5 mg BEDTIME IM 08/01/18 21:00 08/31/18 20:59 08/02/18 21:10 Haloperidol Lactate (Haldol) 5 mg Q6H PRN IM Agitation 08/01/18 08:21 08/31/18 08:20 08/02/18 09:20 Heparin Sodium (Porcine) (Heparin 5000 units/ml) 5,000 units EVERY 12 HOURS SUBQ 08/01/18 09:00 08/29/18 08:59 08/03/18 09:05 Insulin Aspart (NovoLOG) BEFORE MEALS AND HS SUBQ 08/01/18 11:30 08/29/18 11:29 08/03/18 12:08 Lorazepam (Ativan 2mg/ml 1ml) 1 mg Q4H PRN IM For Anxiety 08/01/18 08:30 08/08/18 08:20 Lorazepam (Ativan) 0.5 mg Q6H PRN ORAL For Anxiety 08/01/18 08:21 08/08/18 08:20 Risperidone (RisperDAL) 1 mg BID ORAL 08/01/18 09:00 08/30/18 08:59 08/03/18 09:04 Sucralfate (Carafate) 1 gm FOUR TIMES A DAY ORAL 08/01/18 09:00 08/29/18 08:59 08/03/18 13:41 Allergies: Coded Allergies: No Known Allergies (Unverified , 06/27/18) ROS Limited/Unobtainable: No Constitutional: Reports: no symptoms HEENT: Reports: no symptoms Cardiovascular: Reports: no symptoms Respiratory: Reports: no symptoms Gastrointestinal/Abdominal: Reports: no symptoms Genitourinary: Reports: no symptoms Neurologic/Psychiatric: Reports: no symptoms Subjective 83 YO F admitted with altered mental status. Now CHF. Cover for Int Med-Dr Alfaro Objective Last Vital Signs Date Time Temp Pulse Resp B/P (MAP) Pulse Ox O2 Delivery O2 Flow Rate FiO2 08/03/18 12:00 98.6 68 18 115/55 (75) 100 08/03/18 09:00 Nasal Cannula 3.0 08/02/18 21:30 28 Intake and Output 08/02/18 08/03/18 19:00 07:00 Intake Total 240 ml Balance 240 ml Intake Oral 240 ml # Voids 4 2 Objective PHYSICAL EXAMINATION: GENERAL: The patient is a well-developed and well-nourished slightly obese female, in no apparent distress. HEENT: Eyes, pupils are equal and responsive to light and accommodation. Extraocular movements are intact. NECK: Supple without lymphadenopathy. CHEST: Lungs are clear to auscultation bilaterally without wheezes or rales. CARDIOVASCULAR: Regular rhythm and rate. S1 and S2 are normal without murmurs, rubs, or gallops. ABDOMEN: Soft, nontender, and nondistended. Positive bowel sounds. No evidence of hepatosplenomegaly. Currently, no rebound or guarding noted. EXTREMITIES: Negative for clubbing, cyanosis, or edema. RECTAL/GENITAL: Refused. NEUROLOGIC: Cranial nerves II through XII are grossly intact without focal deficits. Motor strength is 5/5 bilaterally. Deep tendon reflexes are 2+ plantar. Assessment/Plan Assessment/Plan ASSESSMENT: This is an 83-year-old female. 1. Altered mental status. 2. Congestive heart failure. 3. Diabetes type 2. 4. Hypertension. 5. Coronary artery disease. 6. Chronic obstructive pulmonary disease. 7. Gastroesophageal reflux disease. 8. Alzheimer's dementia. TREATMENT: 1. Altered mental status. This may be secondary to congestive heart failure as above. 2. Congestive heart failure. Cardiology consultation has been obtained with Dr. Henry Wright. An echocardiogram is pending. 3. Diabetes type 2. A NovoLog sliding scale has been instituted. 4. Coronary artery disease. Continue aspirin as above. 5. Chronic obstructive pulmonary disease. A Pulmonary consultation obtained with Dr. Tawanna Watkins. Continue DuoNebs as above. 6. Gastroesophageal reflux disease. The patient has been started on Protonix. Continue Carafate as above. 7. Alzheimer's dementia. 8. Discharge to Rehab on [facility] when bed available Aldair Card MD August 03, 2018 14:48
[2018-08-03 16:00] VITALS: BP 104/54
[2018-08-03] MEDS: Albuterol/Ipratropium 3ml neb HHN PRN ×2 (16:29→22:44)
--- NOTE | 2018-08-03 19:20 | NUR ---
HAND-OFF: Report given to Jazmin.
--- NOTE | 2018-08-03 20:09 | NUR ---
NURSE NOTES: RECEIVED PATIENT WITH NO IV ACCESS, WILL ATTEMPT ANOTHER IV AT A LATER TIME. Addendum: 08/04/18 at 0709 by IRON RAYGOZA RN RN NEW IV ACCESS LEFT WRIST 22 GAUGE, INTACT.
--- NOTE | 2018-08-03 20:09 | NUR ---
NURSE NOTES: PATIENT IN BED, ASLEEP. NO S/S OF PAIN NOTED AT THIS TIME. NO S/S DISTRESS NOTED. BED IN LOWEST POSITION, CALL LIGHT WITHIN REACH, BED ALARM ON. WILL CONTINUE TO MONITOR.
[2018-08-03 20:59] VITALS: BP 131/50
[2018-08-03] MEDS: Haloperidol 5mg/ml Inj IM SCH (21:22)
--- NOTE | 2018-08-03 23:24 | Psych Consult Progress Note ---
Psychiatry Progress Note Psychiatry Progress Note Medications Current Medications Medications (Trade) Dose Ordered Sig/Deidre Route PRN Reason Start Time Stop Time Status Last Admin Dose Admin Acetaminophen (Tylenol) 650 mg Q6H PRN ORAL Mild Pain/Temp > 100.5 08/01/18 08:20 08/31/18 08:19 Acetaminophen/ Hydrocodone Bitart ([place] 5/325) 1 tab Q6H PRN ORAL For Pain 4-10 08/01/18 08:21 08/08/18 08:20 Albuterol/ Ipratropium (Albuterol/ Ipratropium) 3 ml Q4H PRN HHN Shortness of Breath 08/01/18 08:21 08/06/18 08:20 08/03/18 22:44 Clonidine HCl (Catapres TTS-1) 1 patch QWEEK TDERMAL 08/07/18 13:00 08/30/18 12:59 Dextrose (Dextrose 50%) 25 ml Q30M PRN IV Hypoglycemia 08/01/18 08:30 08/29/18 06:59 Dextrose (Dextrose 50%) 50 ml Q30M PRN IV Hypoglycemia 08/01/18 08:30 08/29/18 06:59 Haloperidol Lactate (Haldol) 5 mg BEDTIME IM 08/01/18 21:00 08/31/18 20:59 08/03/18 21:22 Haloperidol Lactate (Haldol) 5 mg Q6H PRN IM Agitation 08/01/18 08:21 08/31/18 08:20 08/02/18 09:20 Heparin Sodium (Porcine) (Heparin 5000 units/ml) 5,000 units EVERY 12 HOURS SUBQ 08/01/18 09:00 08/29/18 08:59 08/03/18 21:22 Insulin Aspart (NovoLOG) BEFORE MEALS AND HS SUBQ 08/01/18 11:30 08/29/18 11:29 08/03/18 21:40 Lorazepam (Ativan 2mg/ml 1ml) 1 mg Q4H PRN IM For Anxiety 08/01/18 08:30 08/08/18 08:20 Lorazepam (Ativan) 0.5 mg Q6H PRN ORAL For Anxiety 08/01/18 08:21 08/08/18 08:20 Risperidone (RisperDAL) 1 mg BID ORAL 08/01/18 09:00 08/30/18 08:59 08/03/18 17:45 Sucralfate (Carafate) 1 gm FOUR TIMES A DAY ORAL 08/01/18 09:00 08/29/18 08:59 08/03/18 21:22 Neurological/Psychiatric: Reports: anxiety, depressed, emotional problems Allergies: Coded Allergies: No Known Allergies (Unverified , 06/27/18) Objective Data Height (Feet): 5 Height (Inches): 7.00 Weight (Pounds): 229 General Appearance: alert, confused, agitated Appearance: disheveled Behavior Mannerisms: poor eye contact Mental Status Exam - Affect: constricted Mental Status Exam - Thought C: delusions (specify) Perceptual Disturbances: hallucinations Mental Status Exam - Suicidal: not present Assessment/Plan Problem List: (1) Dementia ICD Codes: F03.90 - Unspecified dementia without behavioral disturbance SNOMED: 26406030 Status: unchanged Assessment/Plan: risperdal ativan im haldol im the pt lacks capacity to make decisions Beverley Cook MD August 03, 2018 23:24
[2018-08-04] VITALS (7 sets, daily range): BP systolic 127–164; BP diastolic 49–70
[2018-08-04] MEDS: NovoLOG Insulin Flexpen SUBQ SCH ×4 (06:51→20:58)
--- NOTE | 2018-08-04 07:05 | NUR ---
NURSE NOTES: PATIENT REQUESTED FOR RT, NURSE PAGED RT.
--- NOTE | 2018-08-04 07:09 | NUR ---
HAND-OFF: Report given to EV PARIS LVN.
[2018-08-04 07:12] LABS: ANION GAP 1 mmol/L (5-15); BLOOD UREA NITROGEN 10 mg/dL (7-18); CALCIUM 9.6 MG/DL (8.5-10.1); CARBON DIOXIDE 40 MMOL/L (21-32); CHLORIDE 106 MMOL/L (98-107); CREATININE 0.8 MG/DL (0.55-1.30); POTASSIUM 3.9 MMOL/L (3.5-5.1); SODIUM 147 MMOL/L (136-145)
[2018-08-04 07:28] LABS: HEMATOCRIT 32.7 % (37.0-47.0); HEMOGLOBIN 9.6 G/DL (12.0-16.0); LYMPHOCYTES % (AUTO) 17.3 % (20.0-45.0); MEAN CORPUSCULAR VOLUME 90 FL (80-99); MONOCYTES % (AUTO) 9.8 % (1.0-10.0); PLATELET COUNT 171 K/UL (150-450); RED BLOOD COUNT 3.62 M/UL (4.20-5.40); RED CELL DISTRIBUTION WIDTH 14.3 % (11.6-14.8); WHITE BLOOD COUNT 5.6 K/UL (4.8-10.8)
[2018-08-04] MEDS: Albuterol/Ipratropium 3ml neb HHN PRN ×2 (07:39→20:22)
--- NOTE | 2018-08-04 07:58 | Pulmonology Progress Note ---
Assessment/Plan Assessment/Plan ASSESSMENT Hypertensive urgency Elevated troponin CHF/diastolic dysfunction Dementia COPD Diabetes mellitus Morbid obesity Hypothyroidism Moderate pulm HTN PLAN OF CARE MS floor pt refused initially all oral meds BP management with clonidine patch BP improved declined diuretic ECHO with pEF 55-60% , grade 2 diastolic dysfunction, RVSP of 54 c/w moderate pulm HTN spot diuresis if pt agrees, monitor volumes, cardiorenal parameters pulse oximetry stable on room air minimally elevated troponin , no complaint of chest pain cardio eval pending EKG revealed no acute ischemic changes urine toxicology screen was negative BP improved supportive care bowel regimen per psych patient lacks capacity to make informed decision psychiatric medication regimen optimized stable for discharge to SNF closely monitor pt in the facility , hopefully with psychiatric medication regimen patient will become more cooperative to initiate further outpatient work-up pt will need SNF placement, lives alone and unable to take care of herself case discussed and evaluated by supervising physician Subjective Allergies: Coded Allergies: No Known Allergies (Unverified , 06/27/18) Subjective denies CP, SOB no signs of resp distress Objective Last 24 Hour Vital Signs Date Time Temp Pulse Resp B/P (MAP) Pulse Ox O2 Delivery O2 Flow Rate FiO2 08/04/18 07:40 98 Nasal Cannula 2.0 08/04/18 07:40 Nasal Cannula 2.0 08/04/18 07:40 81 20 Nasal Cannula 2.0 08/04/18 07:39 81 20 98 08/04/18 04:00 99.2 78 18 135/53 (80) 99 08/04/18 00:59 98.4 87 18 140/52 (81) 96 08/03/18 22:55 88 22 99 Nasal Cannula 2.0 08/03/18 22:44 86 22 98 Nasal Cannula 2.0 08/03/18 22:11 Nasal Cannula 3.0 08/03/18 20:59 98.4 79 18 131/50 (77) 100 08/03/18 19:36 98 Nasal Cannula 2.0 08/03/18 19:36 Nasal Cannula 2.0 08/03/18 19:36 83 20 Nasal Cannula 2.0 08/03/18 16:40 84 21 98 Nasal Cannula 2.0 08/03/18 16:30 82 22 97 Nasal Cannula 4.0 36 08/03/18 16:00 98.5 65 20 104/54 (71) 100 5/4/19 12:00 98.6 68 18 115/55 (75) 100 08/03/18 09:00 Nasal Cannula 3.0 08/03/18 08:00 99.5 70 20 132/59 (83) 98 Intake and Output 08/03/18 08/04/18 19:00 07:00 Intake Total 360 ml 120 ml Balance 360 ml 120 ml Intake Oral 360 ml 120 ml # Voids 4 2 General Appearance: no acute distress HEENT: normocephalic, atraumatic, anicteric, mucous membranes moist Respiratory/Chest: chest wall non-tender - with moderate air exchange , lungs clear Cardiovascular: normal rate, regular rhythm Abdomen: soft, non tender Extremities: other - +1 edema BLE Neurologic/Psychiatric: abnormal gait - unsteady , alert, responsive Musculoskeletal: atrophy - BLE Laboratory Tests 08/04/18 06:00: White Blood Count 5.6, Red Blood Count 3.62L, Hemoglobin 9.6L, Hematocrit 32.7L , Mean Corpuscular Volume 90, Mean Corpuscular Hemoglobin 26.6L, Mean Corpuscular Hemoglobin Concent 29.5L, Red Cell Distribution Width 14.3, Platelet Count 171, Mean Platelet Volume 8.4, Neutrophils (%) (Auto) 62.0, Lymphocytes (%) (Auto) 17.3L, Monocytes (%) (Auto) 9.8, Eosinophils (%) (Auto) 10.0H, Basophils (%) (Auto) 1.0, Sodium Level 147H, Potassium Level 3.9, Chloride Level 106, Carbon Dioxide Level 40H, Anion Gap 1L, Blood Urea Nitrogen 10, Creatinine 0.8, Estimat Glomerular Filtration Rate , Glucose Level 113H, Calcium Level 9.6, Troponin I 0.089H Current Medications Medications (Trade) Dose Ordered Sig/Deidre Route PRN Reason Start Time Stop Time Status Last Admin Dose Admin Acetaminophen (Tylenol) 650 mg Q6H PRN ORAL Mild Pain/Temp > 100.5 08/01/18 08:20 08/31/18 08:19 Acetaminophen/ Hydrocodone Bitart ([place] 5/325) 1 tab Q6H PRN ORAL For Pain 4-10 08/01/18 08:21 08/08/18 08:20 Albuterol/ Ipratropium (Albuterol/ Ipratropium) 3 ml Q4H PRN HHN Shortness of Breath 08/01/18 08:21 08/06/18 08:20 08/04/18 07:39 Clonidine HCl (Catapres TTS-1) 1 patch QWEEK TDERMAL 08/07/18 13:00 08/30/18 12:59 Dextrose (Dextrose 50%) 25 ml Q30M PRN IV Hypoglycemia 08/01/18 08:30 08/29/18 06:59 Dextrose (Dextrose 50%) 50 ml Q30M PRN IV Hypoglycemia 08/01/18 08:30 08/29/18 06:59 Haloperidol Lactate (Haldol) 5 mg BEDTIME IM 08/01/18 21:00 08/31/18 20:59 08/03/18 21:22 Haloperidol Lactate (Haldol) 5 mg Q6H PRN IM Agitation 08/01/18 08:21 08/31/18 08:20 08/02/18 09:20 Heparin Sodium (Porcine) (Heparin 5000 units/ml) 5,000 units EVERY 12 HOURS SUBQ 08/01/18 09:00 08/29/18 08:59 08/03/18 21:22 Insulin Aspart (NovoLOG) BEFORE MEALS AND HS SUBQ 08/01/18 11:30 08/29/18 11:29 08/04/18 06:51 Lorazepam (Ativan 2mg/ml 1ml) 1 mg Q4H PRN IM For Anxiety 08/01/18 08:30 08/08/18 08:20 Lorazepam (Ativan) 0.5 mg Q6H PRN ORAL For Anxiety 08/01/18 08:21 08/08/18 08:20 Risperidone (RisperDAL) 1 mg BID ORAL 08/01/18 09:00 08/30/18 08:59 08/03/18 17:45 Sucralfate (Carafate) 1 gm FOUR TIMES A DAY ORAL 08/01/18 09:00 08/29/18 08:59 08/03/18 21:22 Jailyn Sims NP August 04, 2018 07:58
--- NOTE | 2018-08-04 08:00 | NUR ---
NURSE NOTES: Received patient in bed, A/A/Ox2, confused. On HHN @ this time. No s/s pain or discomfort. Side rails upx3. Bed is in lowest position and locked. Bed alarm is on. Will continue plan of care.
[2018-08-04] MEDS: Sucralfate 1gm tab ORAL SCH ×4 (08:27→20:55)
[2018-08-04] MEDS: Heparin 5000 units/ml inj SUBQ SCH ×2 (08:32→20:56)
[2018-08-04] MEDS ORDERED: Miralax 17gm pkt ORAL PRN (10:15)
--- NOTE | 2018-08-04 15:39 | Internal Med Progress Note ---
Subjective Date of Service: August 04, 2018 Physician Name Aldair Card Attending Physician Nahun Alfaro MD Current Medications Medications (Trade) Dose Ordered Sig/Deidre Route PRN Reason Start Time Stop Time Status Last Admin Dose Admin Acetaminophen (Tylenol) 650 mg Q6H PRN ORAL Mild Pain/Temp > 100.5 08/01/18 08:20 08/31/18 08:19 Acetaminophen/ Hydrocodone Bitart ([place] 5/325) 1 tab Q6H PRN ORAL For Pain 4-10 08/01/18 08:21 08/08/18 08:20 Albuterol/ Ipratropium (Albuterol/ Ipratropium) 3 ml Q4H PRN HHN Shortness of Breath 08/04/18 12:07 08/09/18 12:06 Clonidine HCl (Catapres TTS-1) 1 patch QWEEK TDERMAL 08/07/18 13:00 08/30/18 12:59 Dextrose (Dextrose 50%) 25 ml Q30M PRN IV Hypoglycemia 08/01/18 08:30 08/29/18 06:59 Dextrose (Dextrose 50%) 50 ml Q30M PRN IV Hypoglycemia 08/01/18 08:30 08/29/18 06:59 Haloperidol Lactate (Haldol) 5 mg BEDTIME IM 08/01/18 21:00 08/31/18 20:59 08/03/18 21:22 Haloperidol Lactate (Haldol) 5 mg Q6H PRN IM Agitation 08/01/18 08:21 08/31/18 08:20 08/02/18 09:20 Heparin Sodium (Porcine) (Heparin 5000 units/ml) 5,000 units EVERY 12 HOURS SUBQ 08/01/18 09:00 08/29/18 08:59 08/04/18 08:32 Insulin Aspart (NovoLOG) BEFORE MEALS AND HS SUBQ 08/01/18 11:30 08/29/18 11:29 08/04/18 12:21 Lorazepam (Ativan 2mg/ml 1ml) 1 mg Q4H PRN IM For Anxiety 08/01/18 08:30 08/08/18 08:20 Lorazepam (Ativan) 0.5 mg Q6H PRN ORAL For Anxiety 08/01/18 08:21 08/08/18 08:20 Polyethylene Glycol (Miralax) 17 gm DAILYPRN PRN ORAL Constipation 08/04/18 10:15 09/03/18 10:14 Risperidone (RisperDAL) 1 mg BID ORAL 08/01/18 09:00 08/30/18 08:59 08/03/18 17:45 Sucralfate (Carafate) 1 gm FOUR TIMES A DAY ORAL 08/01/18 09:00 08/29/18 08:59 08/04/18 12:20 Allergies: Coded Allergies: No Known Allergies (Unverified , 06/27/18) ROS Limited/Unobtainable: No Constitutional: Reports: no symptoms HEENT: Reports: no symptoms Cardiovascular: Reports: no symptoms Respiratory: Reports: no symptoms Gastrointestinal/Abdominal: Reports: no symptoms Genitourinary: Reports: no symptoms Neurologic/Psychiatric: Reports: no symptoms Subjective 83 YO F admitted with altered mental status. Now CHF. Cover for Int Johnny-Dr Alfaro Objective Last Vital Signs Date Time Temp Pulse Resp B/P (MAP) Pulse Ox O2 Delivery O2 Flow Rate FiO2 08/04/18 12:00 98.9 74 20 137/58 (84) 100 08/04/18 07:40 Nasal Cannula 2.0 28 Laboratory Tests Test 08/04/18 06:00 White Blood Count 5.6 K/UL (4.8-10.8) Red Blood Count 3.62 M/UL (4.20-5.40) L Hemoglobin 9.6 G/DL (12.0-16.0) L Hematocrit 32.7 % (37.0-47.0) L Mean Corpuscular Volume 90 FL (80-99) Mean Corpuscular Hemoglobin 26.6 PG (27.0-31.0) L Mean Corpuscular Hemoglobin Concent 29.5 G/DL (32.0-36.0) L Red Cell Distribution Width 14.3 % (11.6-14.8) Platelet Count 171 K/UL (150-450) Mean Platelet Volume 8.4 FL (6.5-10.1) Neutrophils (%) (Auto) 62.0 % (45.0-75.0) Lymphocytes (%) (Auto) 17.3 % (20.0-45.0) L Monocytes (%) (Auto) 9.8 % (1.0-10.0) Eosinophils (%) (Auto) 10.0 % (0.0-3.0) H Basophils (%) (Auto) 1.0 % (0.0-2.0) Sodium Level 147 MMOL/L (136-145) H Potassium Level 3.9 MMOL/L (3.5-5.1) Chloride Level 106 MMOL/L (98-107) Carbon Dioxide Level 40 MMOL/L (21-32) H Anion Gap 1 mmol/L (5-15) L Blood Urea Nitrogen 10 mg/dL (7-18) Creatinine 0.8 MG/DL (0.55-1.30) Estimat Glomerular Filtration Rate mL/min (>60) Glucose Level 113 MG/DL (74-106) H Calcium Level 9.6 MG/DL (8.5-10.1) Troponin I 0.089 ng/mL (0.000-0.056) Intake and Output 08/03/18 08/04/18 19:00 07:00 Intake Total 360 ml 120 ml Balance 360 ml 120 ml Intake Oral 360 ml 120 ml # Voids 4 2 Objective PHYSICAL EXAMINATION: GENERAL: The patient is a well-developed and well-nourished slightly obese female, in no apparent distress. HEENT: Eyes, pupils are equal and responsive to light and accommodation. Extraocular movements are intact. NECK: Supple without lymphadenopathy. CHEST: Lungs are clear to auscultation bilaterally without wheezes or rales. CARDIOVASCULAR: Regular rhythm and rate. S1 and S2 are normal without murmurs, rubs, or gallops. ABDOMEN: Soft, nontender, and nondistended. Positive bowel sounds. No evidence of hepatosplenomegaly. Currently, no rebound or guarding noted. EXTREMITIES: Negative for clubbing, cyanosis, or edema. RECTAL/GENITAL: Refused. NEUROLOGIC: Cranial nerves II through XII are grossly intact without focal deficits. Motor strength is 5/5 bilaterally. Deep tendon reflexes are 2+ plantar. Assessment/Plan Assessment/Plan ASSESSMENT: This is an 83-year-old female. 1. Altered mental status. 2. Congestive heart failure. 3. Diabetes type 2. 4. Hypertension. 5. Coronary artery disease. 6. Chronic obstructive pulmonary disease. 7. Gastroesophageal reflux disease. 8. Alzheimer's dementia. TREATMENT: 1. Altered mental status. This may be secondary to congestive heart failure as above. 2. Congestive heart failure. Cardiology consultation has been obtained with Dr. Henry Wright. An echocardiogram is pending. 3. Diabetes type 2. A NovoLog sliding scale has been instituted. 4. Coronary artery disease. Continue aspirin as above. 5. Chronic obstructive pulmonary disease. A Pulmonary consultation obtained with Dr. Tawanna Watkins. Continue DuoNebs as above. 6. Gastroesophageal reflux disease. The patient has been started on Protonix. Continue Carafate as above. 7. Alzheimer's dementia. 8. Discharge to Rehab on [facility] when bed available Aldair Card MD August 04, 2018 15:39
--- NOTE | 2018-08-04 19:26 | NUR ---
HAND-OFF: Report given to Kelley.
[2018-08-04] MEDS: Haloperidol 5mg/ml Inj IM SCH (20:55)
--- NOTE | 2018-08-04 22:27 | Psych Consult Progress Note ---
Psychiatry Progress Note Psychiatry Progress Note Subjective the pt refuses to take meds poor cognition Medications Current Medications Medications (Trade) Dose Ordered Sig/Deidre Route PRN Reason Start Time Stop Time Status Last Admin Dose Admin Acetaminophen (Tylenol) 650 mg Q6H PRN ORAL Mild Pain/Temp > 100.5 08/01/18 08:20 08/31/18 08:19 Acetaminophen/ Hydrocodone Bitart ([place] 5/325) 1 tab Q6H PRN ORAL For Pain 4-10 08/01/18 08:21 08/08/18 08:20 Albuterol/ Ipratropium (Albuterol/ Ipratropium) 3 ml Q4H PRN HHN Shortness of Breath 08/04/18 12:07 08/09/18 12:06 08/04/18 20:22 Clonidine HCl (Catapres TTS-1) 1 patch QWEEK TDERMAL 08/07/18 13:00 08/30/18 12:59 Dextrose (Dextrose 50%) 25 ml Q30M PRN IV Hypoglycemia 08/01/18 08:30 08/29/18 06:59 Dextrose (Dextrose 50%) 50 ml Q30M PRN IV Hypoglycemia 08/01/18 08:30 08/29/18 06:59 Haloperidol Lactate (Haldol) 5 mg BEDTIME IM 08/01/18 21:00 08/31/18 20:59 08/04/18 20:55 Haloperidol Lactate (Haldol) 5 mg Q6H PRN IM Agitation 08/01/18 08:21 08/31/18 08:20 08/02/18 09:20 Heparin Sodium (Porcine) (Heparin 5000 units/ml) 5,000 units EVERY 12 HOURS SUBQ 08/01/18 09:00 08/29/18 08:59 08/04/18 20:56 Insulin Aspart (NovoLOG) BEFORE MEALS AND HS SUBQ 08/01/18 11:30 08/29/18 11:29 08/04/18 20:58 Lorazepam (Ativan 2mg/ml 1ml) 1 mg Q4H PRN IM For Anxiety 08/01/18 08:30 08/08/18 08:20 Lorazepam (Ativan) 0.5 mg Q6H PRN ORAL For Anxiety 08/01/18 08:21 08/08/18 08:20 Polyethylene Glycol (Miralax) 17 gm DAILYPRN PRN ORAL Constipation 08/04/18 10:15 09/03/18 10:14 Risperidone (RisperDAL) 1 mg BID ORAL 08/01/18 09:00 08/30/18 08:59 08/04/18 17:12 Sucralfate (Carafate) 1 gm FOUR TIMES A DAY ORAL 08/01/18 09:00 08/29/18 08:59 08/04/18 20:55 Neurological/Psychiatric: Reports: anxiety, depressed, emotional problems Allergies: Coded Allergies: No Known Allergies (Unverified , 06/27/18) Objective Data Height (Feet): 5 Height (Inches): 7.00 Weight (Pounds): 229 General Appearance: no apparent distress, alert, confused, agitated Appearance: inappropriate Behavior Mannerisms: poor eye contact Mental Status Exam - Affect: constricted Mental Status Exam - Mood: anxious, agitated Mental Status Exam - Thought C: delusions (specify) Mental Status Exam - Suicidal: not present Assessment/Plan Problem List: (1) Dementia ICD Codes: F03.90 - Unspecified dementia without behavioral disturbance SNOMED: [id number] Status: unchanged Assessment/Plan: risperdal ativan im haldol im the pt lacks capacity to make decisions Beverley Cook MD August 04, 2018 22:27
--- NOTE | 2018-08-04 23:00 | NUR ---
Nurse's notes: received patient awake, alert and oriented; no complaints received except for "getting tired laying on this bed". Education given on the importance of turning to prevent pressure injuries; patient understood teaching. Plan of care and orders reviewed with patient; Ms. Bishop is agreeable and understood teaching. will continue to monitor.
--- NOTE | 2018-08-04 23:19 | Physician Query ---
Clarification is required for compliance, coding accuracy, and to reflect severity of illness for this patient Dear Dr. Card Date: 08/04/2018 CDS: Armin Bhatia Please click EDIT and place X in appropriate box CHF Diastolic dysfunction has been documented in medical records. Patient is admitted with Hypertensive urgency. BNP: 451. Patient declined diuretics. Can you please clarify the Acuity of CHF? [ ] Acute [ ] Chronic [ X ] Acute on Chronic Present on Admission: [ X ] Yes [ ] No [ ] Clinically Undetermined Physician signature Date Please also document in your Progress Notes and/or Discharge Summary and indicate if the condition was present on admission. REHANA
[2018-08-05] VITALS: BP 130/53
[2018-08-05] MEDS: Albuterol/Ipratropium 3ml neb HHN PRN ×2 (01:26→13:20)
[2018-08-05 04:00] VITALS: BP 130/57
[2018-08-05] MEDS: NovoLOG Insulin Flexpen SUBQ SCH ×2 (06:19→12:45)
[2018-08-05 06:57] LABS: ANION GAP 1 mmol/L (5-15); BLOOD UREA NITROGEN 8 mg/dL (7-18); CALCIUM 9.7 MG/DL (8.5-10.1); CARBON DIOXIDE 39 MMOL/L (21-32); CHLORIDE 107 MMOL/L (98-107); CREATININE 0.7 MG/DL (0.55-1.30); POTASSIUM 4.8 MMOL/L (3.5-5.1); SODIUM 147 MMOL/L (136-145)
--- NOTE | 2018-08-05 07:00 | NUR ---
nurse's notes: no incidents of falls, injuries or trauma reported as of this time; no new skin issues noted. VS stable; afebrile. BS WNL; insulin coverage given per sliding scale. kept clean and dry; no significant issues as of this time. will continue to monitor.
[2018-08-05 07:05] LABS: BASOPHILS % (AUTO) 2.7 % (0.0-2.0); EOSINOPHILS % (AUTO) 10.1 % (0.0-3.0); HEMATOCRIT 33.5 % (37.0-47.0); HEMOGLOBIN 9.8 G/DL (12.0-16.0); LYMPHOCYTES % (AUTO) 20.2 % (20.0-45.0); MEAN CORPUSCULAR VOLUME 90 FL (80-99); NEUTROPHILS % (AUTO) 57.9 % (45.0-75.0); PLATELET COUNT 169 K/UL (150-450); RED BLOOD COUNT 3.74 M/UL (4.20-5.40); RED CELL DISTRIBUTION WIDTH 14.8 % (11.6-14.8); WHITE BLOOD COUNT 5.5 K/UL (4.8-10.8)
[2018-08-05 08:00] VITALS: BP 154/63
[2018-08-05] MEDS: Heparin 5000 units/ml inj SUBQ SCH (08:13)
[2018-08-05] MEDS: Sucralfate 1gm tab ORAL SCH ×2 (08:13→12:45)
--- NOTE | 2018-08-05 09:39 | NUR ---
RADIOLOGY DEPT., CHEST X-RAY DONE.-P.DYE
--- NOTE | 2018-08-05 11:54 | Diagnostic Imaging Report ---
Indication: Dyspnea Comparison: 07/30/2018 A single view chest radiograph was obtained. Findings: Vascular congestion and pulmonary edema are again demonstrated appearing slightly improved. There is evidence of a right pleural effusion. Cardiomegaly is stable. IMPRESSION: Mild to moderate CHF slightly improved
[2018-08-05 12:00] VITALS: BP 157/63
--- NOTE | 2018-08-05 13:28 | Pulmonology Progress Note ---
Assessment/Plan Problems: (1) Hypertensive urgency (2) Elevated troponin (3) COPD (chronic obstructive pulmonary disease) (4) Diabetes mellitus (5) Dementia (6) HTN (hypertension) (7) Morbid obesity Assessment/Plan no new complaisn still refusing all meds start clonidine patch for HTN, refusing oral meds BP slightly elevated Psych prescribed Hold and Resperidol dc planning med/surg Subjective ROS Limited/Unobtainable: No HEENT: Repors: no symptoms Respiratory: Reports: no symptoms Allergies: Coded Allergies: No Known Allergies (Unverified , 06/27/18) Objective Last 24 Hour Vital Signs Date Time Temp Pulse Resp B/P (MAP) Pulse Ox O2 Delivery O2 Flow Rate FiO2 08/05/18 12:00 97.8 74 17 157/63 (94) 95 08/05/18 09:13 Nasal Cannula 3.0 08/05/18 08:00 97.9 72 17 154/63 (93) 95 08/05/18 07:35 Nasal Cannula 2.0 28 08/05/18 07:35 72 18 Nasal Cannula 2.0 08/05/18 07:35 72 Nasal Cannula 2.0 28 08/05/18 04:00 97.5 75 17 130/57 (81) 100 08/05/18 01:36 75 20 99 Nasal Cannula 2.0 28 08/05/18 01:26 74 20 91 Nasal Cannula 3.0 32 08/05/18 00:00 98.0 76 18 130/53 (78) 96 08/04/18 21:07 139/65 (89) 08/04/18 21:00 Nasal Cannula 3.0 08/04/18 20:31 86 20 99 Nasal Cannula 2.0 28 08/04/18 20:28 84 20 Nasal Cannula 2.0 28 08/04/18 20:28 Nasal Cannula 2.0 28 08/04/18 20:28 84 Nasal Cannula 2.0 28 08/04/18 20:22 81 20 94 Nasal Cannula 2.0 28 08/04/18 20:00 97.7 84 18 164/70 (101) 97 08/04/18 16:00 98.6 75 20 142/62 (88) 95 Intake and Output 08/04/18 08/05/18 19:00 07:00 Intake Total 720 ml 300 ml Balance 720 ml 300 ml Intake Oral 720 ml Other 300 ml # Voids 4 2 General Appearance: WD/WN HEENT: normocephalic Respiratory/Chest: chest wall non-tender, normal breath sounds Cardiovascular: normal peripheral pulses, regular rhythm Abdomen: soft, non tender, no organomegaly Genitourinary: normal external genitalia Extremities: no clubbing Skin: no rash Laboratory Tests 08/05/18 05:50: White Blood Count 5.5, Red Blood Count 3.74L, Hemoglobin 9.8L, Hematocrit 33.5L , Mean Corpuscular Volume 90, Mean Corpuscular Hemoglobin 26.2L, Mean Corpuscular Hemoglobin Concent 29.2L, Red Cell Distribution Width 14.8, Platelet Count 169, Mean Platelet Volume 7.8, Neutrophils (%) (Auto) 57.9, Lymphocytes (%) (Auto) 20.2, Monocytes (%) (Auto) 9.0, Eosinophils (%) (Auto) 10.1H, Basophils (%) (Auto) 2.7H, Sodium Level 147H, Potassium Level 4.8, Chloride Level 107, Carbon Dioxide Level 39H, Anion Gap 1L, Blood Urea Nitrogen 8, Creatinine 0.7, Estimat Glomerular Filtration Rate , Glucose Level 112H, Calcium Level 9.7 Current Medications Medications (Trade) Dose Ordered Sig/Deidre Route PRN Reason Start Time Stop Time Status Last Admin Dose Admin Acetaminophen (Tylenol) 650 mg Q6H PRN ORAL Mild Pain/Temp > 100.5 08/01/18 08:20 08/31/18 08:19 Acetaminophen/ Hydrocodone Bitart ([place] 5/325) 1 tab Q6H PRN ORAL For Pain 4-10 08/01/18 08:21 08/08/18 08:20 Albuterol/ Ipratropium (Albuterol/ Ipratropium) 3 ml Q4H PRN HHN Shortness of Breath 08/04/18 12:07 08/09/18 12:06 08/05/18 13:20 Clonidine HCl (Catapres TTS-1) 1 patch QWEEK TDERMAL 08/07/18 13:00 08/30/18 12:59 Dextrose (Dextrose 50%) 25 ml Q30M PRN IV Hypoglycemia 08/01/18 08:30 08/29/18 06:59 Dextrose (Dextrose 50%) 50 ml Q30M PRN IV Hypoglycemia 08/01/18 08:30 08/29/18 06:59 Haloperidol Lactate (Haldol) 5 mg BEDTIME IM 08/01/18 21:00 08/31/18 20:59 08/04/18 20:55 Haloperidol Lactate (Haldol) 5 mg Q6H PRN IM Agitation 08/01/18 08:21 08/31/18 08:20 08/02/18 09:20 Heparin Sodium (Porcine) (Heparin 5000 units/ml) 5,000 units EVERY 12 HOURS SUBQ 08/01/18 09:00 08/29/18 08:59 08/05/18 08:13 Insulin Aspart (NovoLOG) BEFORE MEALS AND HS SUBQ 08/01/18 11:30 08/29/18 11:29 08/05/18 12:45 Lorazepam (Ativan 2mg/ml 1ml) 1 mg Q4H PRN IM For Anxiety 08/01/18 08:30 08/08/18 08:20 Lorazepam (Ativan) 0.5 mg Q6H PRN ORAL For Anxiety 08/01/18 08:21 08/08/18 08:20 Polyethylene Glycol (Miralax) 17 gm DAILYPRN PRN ORAL Constipation 08/04/18 10:15 09/03/18 10:14 Risperidone (RisperDAL) 1 mg BID ORAL 08/01/18 09:00 08/30/18 08:59 08/05/18 08:13 Sucralfate (Carafate) 1 gm FOUR TIMES A DAY ORAL 08/01/18 09:00 08/29/18 08:59 08/05/18 12:45 Tawanna Watkins MD August 05, 2018 13:28
--- NOTE | 2018-08-05 13:38 | NUR ---
DISCHARGE PLANNING DISCHARGE ORDER NOTED FAXED CLINICALS TO [facility] Addendum: 08/05/18 at 1501 by DESTINY REYES LVN [facility]
--- NOTE | 2018-08-05 15:01 | NUR ---
DISCHARGE PLANNED PATIENT IS GOING TO [facility] ROOM [address] T: [phone] FOR NURSE TO NURSE REPORT [facility] HAS BEEN ARRANGED FOR [address] [employer] SPOKE WITH NADER WILHELM WHO IS IN AGREEMENT WITH DISCHARGE PLAN Addendum: 08/07/18 at 1410 by JEAN-PIERRE ALMANZAR CM SKILLED
--- NOTE | 2018-08-05 16:35 | NUR ---
NURSE NOTES: pt discharged to [facility] picked up by ambulance with stable condition. all discharge report given to the nurse marcus and verbalized understanding. iv heplock removed. denies any pain nor discomfort. all belongings given to pt. family member made aware of discharge.
--- NOTE | 2018-08-05 22:30 | Progress Note ---
DATE: 08/05/2018 SUBJECTIVE: The patient continues to receive the antipsychotics medication at night, which is Haldol IM. The patient at times is taking the oral medications. Overall, she has improved. The patient continues to be psychotic and is minimally verbal. Has cognitive impairment and episodes of agitation. MENTAL STATUS EXAMINATION: The patient is alert and oriented times self only. Minimally verbal. Mood is dysphoric. Affect is flat. Thought process, there is a paucity of thought content. Thought content, positive for delusions. Insight and judgment is impaired. ASSESSMENT: Dementia with behavioral disturbance and schizophrenia. PLAN: 1. We will continue Haldol 5 mg IM at bedtime. 2. Risperidone p.o. 3. The patient lacks capacity to make decision. 4. Provide the patient with reality orientation and supportive therapy. Beverley Limon M.D. DR: MEGAN JOB#: [id number] CC:
--- NOTE | 2018-08-08 12:50 | Discharge Summary ---
Discharge Summary Discharge Summary _ DATE OF ADMISSION: 07/30/2018 DATE OF DISCHARGE: 08/05/2018 DISCHARGED BY: Dr. Alfaro REASON FOR ADMISSION: [] 3 years old female with past medical history of diabetes mellitus, coronary artery disease, congestive heart failure, COPD, morbid obesity, presented from retirement facility for evaluation due to increased paranoid and agitated behavior. Upon evaluation in emergency department her blood pressure was severely elevated 240/116. Laboratory work-up was significant for elevated troponin 0 0.085. CK 173. Urine toxicology screen was negative. EKG revealed normal sinus region no acute ischemic changes. Chest x-ray demonstrated congestive heart failure. In emergency department Patient received aspirin. Admitted to telemetry floor Emergency department patient was anxious and crying refusing vital signs. Paramedics reported markedly elevated blood pressure. Patient denies chest pain or shortness of breath. Patient denies suicidal homicidal ideation. Patient denies hearing voices. CONSULTANTS: pulmonary Dr. Watkins psychiatrist [facility]SE: Patient admitted to telemetry floor. Serial troponin were monitored, mild elevation in troponin . EKG revealed sinus rhythm , no acute ischemic changes. Echocardiogram demonstrated ejection fraction of 55 to 60% with mild left ventricular hypertrophy. No evidence of wall motion abnormality. Grade 2 diastolic dysfunction. Mild to moderate tricuspid regurgitation. Right ventricular systolic pressure of 54 consistent with moderate pulmonary hypertension. Blood pressure was managed with clonidine patch since patient initially refused all oral medication. Blood pressure improved. Patient declined diuretic. Volumes and cardiorenal parameters were closely monitored. Minimally elevated troponin with no complaints of chest pain. No acute ischemic changes no EKG . Troponin pattern was not consistent with acute coronary syndrome. Elevated troponin was likely due to acute CHF. Statin and aspirin continued. Beta-olivia was added to antihypertensive regimen for better control. Supplemental oxygen provided as needed. Pulse oximetry was stable on oxygen 3 L via nasal cannula. Pulmonary toilet provided as needed. DVT prophylaxis provided. Blood sugar was managed with sliding scale of insulin. Pain management was addressed as needed. Bowel regimen instituted. Supportive care provided. Psychiatrist followed and diagnosed patient with dementia. Psychiatric medication regimen optimized as per psychiatrist. Per psychiatrist patient lacked capacity to make informed decision. Anxiolytic provided as needed. Patient required placement to retirement facility , since she lives alone and was unable to take care of herself at home . Placement was found and patient subsequently was transferred to the retirement facility for continuation of care. Hopefully with psychiatric medication regimen , patient will become more cooperative to initiate further outpatient work-up as needed. FINAL DIAGNOSES: Hypertensive urgency Elevated troponin Acute on chronic diastolic CHF Dementia COPD Diabetes mellitus Morbid obesity Hypothyroidism Moderate pulmonary hypertension DISCHARGE MEDICATIONS: See Medication Reconciliation list. DISCHARGE INSTRUCTIONS: Patient was discharged to the retirement facility. Follow up with medical doctor at the facility. Jailyn Sims NP August 08, 2018 12:50
== END 2018-08-05 16:41 | DRG 292 ==
LOC: EDBD 23:55 → EMR 07-30 00:10 → 2E 07-30 00:40 → EDBEDREQ 07-30 01:02 → 4E 08-01 08:10 → SDSOVERFLO 08-02 08:54 → 4E 08-02 08:56
DX: I11.0 Hypertensive heart disease with heart failure (principal); F02.81 Dementia in other diseases classified elsewhere, unspecified severity, with behavioral disturbance; I50.33 Acute on chronic diastolic (congestive) heart failure; I16.0 Hypertensive urgency; E66.01 Morbid (severe) obesity due to excess calories; Z68.35 Body mass index [BMI] 35.0-35.9, adult; I25.10 Atherosclerotic heart disease of native coronary artery without angina pectoris; I25.2 Old myocardial infarction; J44.9 Chronic obstructive pulmonary disease, unspecified; K21.9 Gastro-esophageal reflux disease without esophagitis; G30.9 Alzheimer's disease, unspecified; Z90.49 Acquired absence of other specified parts of digestive tract; E11.9 Type 2 diabetes mellitus without complications; Z79.82 Long term (current) use of aspirin; Z79.4 Long term (current) use of insulin; R74.8 Abnormal levels of other serum enzymes; Z91.14 Patient's other noncompliance with medication regimen; E03.9 Hypothyroidism, unspecified; I27.20 Pulmonary hypertension, unspecified; F20.9 Schizophrenia, unspecified; Z91.81 History of falling
CPT/HCPCS: 36415; 71045; 80048; 80053; 80307; 81003; 82550; 82553; 82962; 83735; 83880; 84100; 84484; 85025; 85651; 87081; 93005; 94640; 94664; 94760; 96372; 96374; 99285; J1815; J7620